=== PATIENT | female | born 1950 | race Caucasian/White ===

== ENCOUNTER 2018-11-24 17:21 | Inpatient (IN) | payer MEDICARE, MEDICAID ==
[~2018-11-24] VITALS: Ht 165.1 cm; Wt 51.3 kg
[2018-11-24] MEDS ORDERED: NS IV 1000 ML 1,000 ML IV SCH ×2 (17:33→21:30)
--- NOTE | 2018-11-24 17:41 | ED General ---
General Stated Complaint: SENT OVER FROM [facility] Source of Information: Patient, Family Exam Limitations: No Limitations (BALJEET FRENCH MD) History of Present Illness Date Seen by Provider: Nov 24, 2018 Time Seen by Provider: 17:24 Initial Comments Brought here from the clinic by family after clinic found her to have blood pressure in the 70s and heart rate greater than 100. Patient reports that she's been sick recently and had a fever of 101. Family did give Tylenol couple hours ago. She arrives with temperature of 99. Arrives with blood pressure 107/59. Patient reports that she had sick contact with grandchild who had upper respiratory illness. She didn't think that she can get that but appears that she may have. Does have cough for the last 1-2 days as well as runny nose and sore throat. She is 4 years cancer free from throat cancer. Does not usually have blood pressure this low. She is on levothyroxine for thyroid replacement and takes Naprosyn as needed for pain. Timing/Duration: 1-2 Days, Getting Worse Severity: Moderate Associated Systoms: Cough, Fever/Chills; No Nausea/Vomiting; Shortness of Air, Weakness (BALJEET FRENCH MD) Allergies and Home Medications Allergies Coded Allergies: Penicillins (Verified Allergy, Unknown, 11/24/18) codeine (Verified Allergy, Unknown, 11/24/18) lidocaine (Verified Allergy, Unknown, 11/24/18) oxytetracycline (Verified Allergy, Unknown, 11/24/18) Patient Home Medication List Home Medication List Reviewed: Yes (BALJEET FRENCH MD) Review of Systems Review of Systems Constitutional: see HPI, chills, fever, weakness EENTM: nose congestion, throat pain Respiratory: cough, short of breath Cardiovascular: No chest pain, No edema Gastrointestinal: No abdominal pain; loss of appetite; No nausea, No vomiting Genitourinary: no symptoms reported Musculoskeletal: no symptoms reported Skin: no symptoms reported Psychiatric/Neurological: See HPI Hematologic/Lymphatic: No Symptoms Reported (BALJEET FRENCH MD) All Other Systems Reviewed Negative Unless Noted: Yes (BALJEET FRENCH MD) Past Jmdvkpq-Hitelf-Akmysh Hx Patient Social History Alcohol Use: Denies Use Recreational Drug Use: No Smoking Status: Never a Smoker Recent Foreign Travel: No Contact w/Someone Who Travel: No (BALJEET FRENCH MD) Past Medical History Surgeries: Yes Abdominal (feeding tube), Tubal Ligation Respiratory: No Cardiac: No Neurological: No 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 Genitourinary: No Gastrointestinal: No Musculoskeletal: No Endocrine: Yes Hypothyroidsim Cancer: Yes Oral (tonsil) Did You Recieve Any Treatments: Yes What Type of Treatment Did You: Chemotherapy, Radiation, Surgical Intervention (BALJEET FRENCH MD) Family Medical History No Pertinent Family Hx (BALJEET FRENCH MD) Physical Exam-Suspected Sepsis Physical Exam Vital Signs Vital Signs - First Documented 11/24/18 17:25 Temp 99.0 Pulse 88 Resp 16 B/P (MAP) 107/59 (75) Pulse Ox 91 O2 Delivery Room Air (ROSAURA MIJARES MD) Vital Signs Capillary Refill : (BALJEET FRENCH MD) Height, Weight, BMI Height: '" Weight: lbs. oz. kg; BMI Method: General Appearance: No Apparent Distress, Thin HEENT: PERRL/EOMI, Pharyngeal Erythema, Other (bilateral nasal congestion with clear rhinorrhea) Neck: Non Tender, Supple; No Lymphadenopathy (L), No Lymphadenopathy (R) Respiratory: Crackles (left base greater than right), Expiration, Inspiration Cardiovascular: Regular Rate, Rhythm, No Murmur Gastrointestinal: Non Tender, Soft Back: Normal Inspection, No CVA Tenderness, No Vertebral Tenderness Extremity: Normal Range of Motion, Non Tender Neurologic/Psychiatric: Alert, Oriented x3 Skin: normal color, warm/dry (BALJEET FRENCH MD) Focused Exam Lactate Level 11/24/18 17:35: Lactic Acid Level 1.06 (ROSAURA MIJARES MD) Lactic Acid Level Laboratory Tests Test 11/24/18 17:35 Lactic Acid Level 1.06 MMOL/L (0.50-2.00) (ROSAURA MIJARES MD) Progress/Results/Core Measures Suspected Sepsis SIRS Temperature: Pulse: Respiratory Rate: Laboratory Tests 11/24/18 17:35: White Blood Count 9.1 Blood Pressure / Mean: 11/24/18 17:35: Laboratory Tests 11/24/18 17:35: INR Comment 1.3, Platelet Count 128L (BALJEET FRENCH MD) Results/Orders Lab Results Laboratory Tests Test 11/24/18 17:30 11/24/18 17:35 11/24/18 18:05 Range/Units White Blood Count 9.1 4.3-11.0 10^3/uL Red Blood Count 4.51 4.35-5.85 10^6/uL Hemoglobin 12.8 11.5-16.0 G/DL Hematocrit 39 35-52 % Mean Corpuscular Volume 87 80-99 FL Mean Corpuscular Hemoglobin 28 25-34 PG Mean Corpuscular Hemoglobin Concent 33 32-36 G/DL Red Cell Distribution Width 14.6 H 10.0-14.5 % Platelet Count 128 L 130-400 10^3/uL Mean Platelet Volume 13.5 H 7.4-10.4 FL Neutrophils (%) (Auto) 84 H 42-75 % Lymphocytes (%) (Auto) 8 L 12-44 % Monocytes (%) (Auto) 7 0-12 % Eosinophils (%) (Auto) 0 0-10 % Basophils (%) (Auto) 0 0-10 % Neutrophils # (Auto) 7.7 1.8-7.8 X 10^3 Lymphocytes # (Auto) 0.7 L 1.0-4.0 X 10^3 Monocytes # (Auto) 0.7 0.0-1.0 X 10^3 Eosinophils # (Auto) 0.0 0.0-0.3 10^3/uL Basophils # (Auto) 0.0 0.0-0.1 10^3/uL Neutrophils % (Manual) 52 % Lymphocytes % (Manual) 4 % Monocytes % (Manual) 5 % Eosinophils % (Manual) 0 % Basophils % (Manual) 0 % Band Neutrophils 39 % Blood Morphology Comment NORMAL Prothrombin Time 15.8 H 12.2-14.7 SEC INR Comment 1.3 0.8-1.4 Activated Partial Thromboplast Time 35 24-35 SEC Sodium Level 138 135-145 MMOL/L Potassium Level 4.0 3.6-5.0 MMOL/L Chloride Level 101 98-107 MMOL/L Carbon Dioxide Level 25 21-32 MMOL/L Anion Gap 12 5-14 MMOL/L Blood Urea Nitrogen 20 H 7-18 MG/DL Creatinine 0.69 0.60-1.30 MG/DL Estimat Glomerular Filtration Rate > 60 BUN/Creatinine Ratio 29 Glucose Level 120 H 70-105 MG/DL Lactic Acid Level 1.06 0.50-2.00 MMOL/L Calcium Level 9.6 8.5-10.1 MG/DL Corrected Calcium 9.6 8.5-10.1 MG/DL Total Bilirubin 0.4 0.1-1.0 MG/DL Aspartate Amino Transf (AST/SGOT) 18 5-34 U/L Alanine Aminotransferase (ALT/SGPT) 13 0-55 U/L Alkaline Phosphatase 75 40-136 U/L Total Protein 7.5 6.4-8.2 GM/DL Albumin 4.0 3.2-4.5 GM/DL Urine Color YELLOW Urine Clarity CLEAR Urine pH 6.5 5-9 Urine Specific [place] <1.005 1.016-1.022 Urine Protein NEGATIVE NEGATIVE Urine Glucose (UA) NEGATIVE NEGATIVE Urine Ketones NEGATIVE NEGATIVE Urine Nitrite NEGATIVE NEGATIVE Urine Bilirubin NEGATIVE NEGATIVE Urine Urobilinogen 0.2 NORMAL MG/DL Urine Leukocyte Esterase NEGATIVE NEGATIVE Urine RBC (Auto) 1+ H NEGATIVE Urine RBC 5-10 H /HPF Urine WBC NONE /HPF Urine Squamous Epithelial Cells 2-5 /HPF Urine Crystals NONE /LPF Urine Bacteria NONE /HPF Urine Casts NONE /LPF Urine Mucus NEGATIVE /LPF Urine Culture Indicated NO (ROSAURA MIJARES MD) Micro Results Microbiology 11/24/18 Influenza Types A,B Antigen (CADEN) - Final, Complete (ROSAURA MIJARES MD) My Orders Orders - ROSAURA MIJARES MD Levofloxacin 750 Mg/150 Ml Iv (Levaquin (11/24/18 18:45) Free T4 (Free Thyroxine) (11/24/18 18:39) Thyroid Stimulating Hormone (11/24/18 18:39) (ROSAURA MIJARES MD) Medications Given in ED Current Medications Medications Dose Ordered Sig/Paul Route Start Time Stop Time Status Last Admin Dose Admin Levofloxacin/ Dextrose 150 ml @ 100 mls/hr ONCE ONCE IV 11/24/18 18:45 11/24/18 20:14 11/24/18 18:44 100 MLS/HR Sodium Chloride 1,000 ml @ 0 mls/hr Q0M ONCE IV 11/24/18 17:58 11/24/18 17:59 DC 11/24/18 18:07 1,000 MLS/HR (ROSAURA MIJARES MD) Vital Signs/I&O 11/24/18 11/24/18 11/24/18 17:25 18:12 18:23 Temp 99.0 97.9 Pulse 88 76 84 98 Resp 16 B/P (MAP) 107/59 (75) 100/68 (79) 82/51 (61) 72/44 (53) Pulse Ox 91 O2 Delivery Room Air (ROSAURA MIJARES MD) Vital Signs/I&O Capillary Refill : (BALJEET FRENCH MD) Progress Note : Progress Note Seen and evaluated. IV 2, labs, blood cultures, lactic acid, EKG and normal saline 1 L bolus ordered. We will check for influenza. Chest x-ray ordered. Monitor patient. 1800:1 and satting vital sign noted the pressure 70s over 40s when standing but return to the 90s over 70s when laying flat. We will add another liter of normal saline. 1805: Care transferred to Dr. Hartman pending labs. (BALJEET FRENCH MD) Progress Note #1: Time: 18:58 Progress Note Care of this patient was assumed from Dr. French at shift change at 18:00. Patient is receiving 2 L of IV fluid. Systolic blood pressure has improved to 130s. Levaquin was ordered based on allergy profile. She has a childhood allergy to penicillin with a reaction she describes as rash, swelling, and "turning purple". Patient agrees to transfer to [place] for admission. Progress Note #2: Time: 19:55 Progress Note Patient remained stable through the remainder of her ER visit. Her Levaquin was nearly complete at the time of transfer. Although she was only tachycardic and hypotensive with orthostatic vital signs, she was felt to likely be septic with evidence of bilateral pneumonia on chest x-ray and fever. Her condition was felt to be guarded and admission was felt necessary. It was also noted that her oxygen saturation was initially marginal around 91 percent. (ROSAURA MIJARES MD) ECG Initial ECG Impression Date: Nov 24, 2018 Initial ECG Impression Time: 17:40 Initial ECG Rate: 85 Initial ECG Rhythm: Normal Sinus Comment Sinus rhythm with occasional PVC and PAC. Left bundle branch block. Normal axis. No signs of ST elevation [place]. No previous available for comparison. Interpreted by me. (BALJEET FRENCH MD) Diagnostic Imaging Diagonstic Imaging: Xray Plain Films/CT/US/NM/MRI: chest Comments CXR viewed by me and report reviewed. See report below: NAME: ZAIRE KIRK [facility] REC#: [id number] PT STATUS: REG ER : 1950 PHYSICIAN: BALJEET FRENCH MD ADMIT DATE: 11/24/18/ER FS Draft Date of Exam:11/24/18 CHEST 1 VIEW AP/PA ONLY INDICATION: Weakness, hypotension. FINDINGS: Upright AP chest shows normal heart size and vascularity. There is patchy infiltrate at the left lung base. There may be minimal infiltrate at the right lung base as well. There upper lungs are clear. There is no effusion or pneumothorax. IMPRESSION: There are patchy bibasilar infiltrates suspicious for pneumonia. Recommend follow-up. Dictated on workstation # [id number] Dict: 11/24/18 1811 Trans: 11/24/18 1814 [id number] Interpreted by: MILTON FOX MD (ROSAURA MIJARES MD) Departure Communication (Admissions) Time/Spoke to Admitting Phy: 18:35 Dr. Washburn (ROSAURA MIJARES MD) Impression Primary Impression: Sepsis Qualified Codes: A41.9 - Sepsis, unspecified organism Additional Impressions: Bilateral pneumonia Qualified Codes: J18.1 - Lobar pneumonia, unspecified organism Orthostatic hypotension Disposition: HOME, SELF-CARE Condition: Improved Admissions Decision to Admit Reason: Admit from ER (General) Decision to Admit/Date: Nov 24, 2018 Time/Decision to Admit Time: 18:00 (ROSAURA MIJARES MD) Transfer Time Spoke to Accepting Phy: 18:35 Transfer Progress Notes Patient accepted by Dr. Washburn at [facility] in [place]. Transfer Time: 19:55 Method of Transfer: EMS (ROSAURA MIJARES MD) Departure-Patient Inst. Referrals: REJI SHAH MD (PCP) Primary Care Physician BALJEET FRENCH MD Nov 24, 2018 17:41 ROSAURA MIJARES MD Nov 24, 2018 18:24
[2018-11-24 17:45] LABS: HEMOGLOBIN 12.8 G/DL (11.5-16.0); MEAN CORPUSCULAR HEMOGLOBIN 28 PG (25-34); WHITE BLOOD COUNT 9.1 10^3/uL (4.3-11.0)
[2018-11-24 17:46] LABS: BASOPHILS % (AUTO) 0 % (0-10); EOSINOPHILS % (AUTO) 0 % (0-10); HEMATOCRIT 39 % (35-52); LYMPHOCYTES # (AUTO) 0.7 X 10^3 (1.0-4.0); LYMPHOCYTES % (AUTO) 8 % (12-44); MEAN CORPUSCULAR HGB CONC 33 G/DL (32-36); MEAN CORPUSCULAR VOLUME 87 FL (80-99); MEAN PLATELET VOLUME 13.5 FL (7.4-10.4); MONOCYTES # (AUTO) 0.7 X 10^3 (0.0-1.0); MONOCYTES % (AUTO) 7 % (0-12); NEUTROPHILS # (AUTO) 7.7 X 10^3 (1.8-7.8); NEUTROPHILS % (AUTO) 84 % (42-75); PLATELET COUNT 128 10^3/uL (130-400); RED CELL DISTRIBUTION WIDTH 14.6 % (10.0-14.5)
[2018-11-24] MEDS ORDERED: NS IV 1000 ML 1,000 ML IV ONE (17:58)
[2018-11-24 18:00] LABS: BAND NEUTROPHILS 39 %; BASOPHILS % (MANUAL) 0 %; EOSINOPHILS % (MANUAL) 0 %; LYMPHOCYTES % (MANUAL) 4 %; MONOCYTES % (MANUAL) 5 %; NEUTROPHILS % (MANUAL) 52 %; RBC MORPH NORMAL
[2018-11-24 18:01] LABS: INR 1.3 (0.8-1.4); PROTHROMBIN TIME PATIENT 15.8 SEC (12.2-14.7)
[2018-11-24 18:12] VITALS: BP_SYST 100; BP_SYST 72; BP_SYST 82; BP_DIAS 44; BP_DIAS 51; BP_DIAS 68
[2018-11-24 18:14] LABS: BILIRUBIN,URINE NEGATIVE (NEGATIVE); CLARITY,URINE CLEAR; COLOR,URINE YELLOW; GLUCOSE, URINE (UA) NEGATIVE (NEGATIVE); KETONES,URINE NEGATIVE (NEGATIVE); LEUKOCYTE ESTERASE ,URINE NEGATIVE (NEGATIVE); NITRITE,URINE NEGATIVE (NEGATIVE); PH,URINE 6.5 (5-9); PROTEIN,URINE NEGATIVE (NEGATIVE); UROBILINOGEN,URINE 0.2 MG/DL (NORMAL)
[2018-11-24 18:15] LABS: BILIRUBIN,TOTAL 0.4 MG/DL (0.1-1.0); BUN/CREATININE RATIO 29; CALCIUM 9.6 MG/DL (8.5-10.1); CARBON DIOXIDE 25 MMOL/L (21-32); CHLORIDE 101 MMOL/L (98-107); CREATININE SERUM 0.69 MG/DL (0.60-1.30); GFR ESTIMATED > 60; GLUCOSE 120 MG/DL (70-105); SODIUM 138 MMOL/L (135-145)
--- NOTE | 2018-11-24 18:15 | Diagnostic Imaging Report ---
INDICATION: Weakness, hypotension. FINDINGS: Upright AP chest shows normal heart size and vascularity. There is patchy infiltrate at the left lung base. There may be minimal infiltrate at the right lung base as well. There upper lungs are clear. There is no effusion or pneumothorax. IMPRESSION: There are patchy bibasilar infiltrates suspicious for pneumonia. Recommend follow-up. Dictated by: Dictated on workstation # [id number]
[2018-11-24 18:16] LABS: ALANINE AMINOTRANSFERASE 13 U/L (0-55); ALKALINE PHOSPHATASE 75 U/L (40-136); TOTAL PROTEIN 7.5 GM/DL (6.4-8.2)
--- NOTE | 2018-11-24 18:23 | NUR ---
RESTING IN BED ET DENIES NEEDS AT THIS TIME.
--- NOTE | 2018-11-24 18:35 | NUR ---
MANAGER TRANSFUSION CONTACTED FOR A BED.
[2018-11-24] MEDS ORDERED: LEVOFLOXACIN 750 MG/150 ML IV 150 ML IV ONE (18:45)
--- NOTE | 2018-11-24 19:27 | NUR ---
REPORT GIVEN TO RONNY GOMEZ.
--- NOTE | 2018-11-24 20:42 | NUR ---
ZAIRE KIRK S admitted to room 429-1, with an admitting diagnosis of PNA, SEPSIS , on 11/24/18 from [facility] via [facility], accompanied by STAFF AND FAMILY. ZAIRE KIRK introduced to surroundings, call light, bed controls, phone, TV, temperature control, lights, meal times, smoking policy, visitor policy, side rail policy, bathrooms and showers. Patient Rights given to patient in the handbook.ZAIRE KIRK verbalizes understanding that [facility] is not responsible for the loss or damage to any personal effects or valuables that are kept in the patients posession during their hospitalization.
[2018-11-24] MEDS ORDERED: NS IV 1000 ML 1,000 ML ONE (20:56)
[2018-11-24 20:59] VITALS: BP 126/70
[2018-11-24] MEDS: NS IV 1000 ML 1,000 ML IV SCH (21:03)
[2018-11-24] MEDS ORDERED: CATHETER FLUSH 10 ML SYR IV PRN (21:30)
[2018-11-24] MEDS ORDERED: ACETAMINOPHEN 325 MG TABLET PO PRN (21:30)
[2018-11-24] MEDS ORDERED: ONDANSETRON 4 MG/2 ML (SDV) Z0FRAN IV PRN (21:30)
[2018-11-24 21:59] VITALS: BP 125/66
[2018-11-24] MEDS: CATHETER FLUSH 10 ML SYR IV SCH (22:13)
[2018-11-24 23:10] VITALS: BP 131/70
[2018-11-24 23:37] VITALS: BP 108/68
[2018-11-24 23:37] LABS: FREE T4 (FREE THYROXINE) 1.01 NG/DL (0.70-1.48)
[2018-11-25 00:16] VITALS: BP 135/69
[2018-11-25] MEDS: NS IV 1000 ML 1,000 ML IV SCH ×3 (03:46→16:44)
[2018-11-25 03:59] VITALS: BP 115/62
[2018-11-25] MEDS: CATHETER FLUSH 10 ML SYR IV SCH ×3 (05:46→19:34)
[2018-11-25 06:12] LABS: BASOPHILS % (AUTO) 0 % (0-10); EOSINOPHILS % (AUTO) 0 % (0-10); HEMATOCRIT 35 % (35-52); HEMOGLOBIN 11.3 G/DL (11.5-16.0); LYMPHOCYTES # (AUTO) 0.5 X 10^3 (1.0-4.0); LYMPHOCYTES % (AUTO) 11 % (12-44); MEAN CORPUSCULAR HEMOGLOBIN 29 PG (25-34); MEAN CORPUSCULAR HGB CONC 33 G/DL (32-36); MEAN CORPUSCULAR VOLUME 88 FL (80-99); MEAN PLATELET VOLUME 13.3 FL (7.4-10.4); MONOCYTES # (AUTO) 0.4 X 10^3 (0.0-1.0); MONOCYTES % (AUTO) 9 % (0-12); NEUTROPHILS # (AUTO) 3.9 X 10^3 (1.8-7.8); NEUTROPHILS % (AUTO) 80 % (42-75); PLATELET COUNT 103 10^3/uL (130-400); RED CELL DISTRIBUTION WIDTH 14.9 % (10.0-14.5); WHITE BLOOD COUNT 4.8 10^3/uL (4.3-11.0)
[2018-11-25 06:36] LABS: ALANINE AMINOTRANSFERASE 12 U/L (0-55); ALBUMIN 3.3 GM/DL (3.2-4.5); ALKALINE PHOSPHATASE 58 U/L (40-136); BILIRUBIN,TOTAL 0.3 MG/DL (0.1-1.0); BUN/CREATININE RATIO 12; CALCIUM 8.4 MG/DL (8.5-10.1); CARBON DIOXIDE 21 MMOL/L (21-32); CHLORIDE 110 MMOL/L (98-107); CREATININE SERUM 0.58 MG/DL (0.60-1.30); GFR ESTIMATED > 60; GLUCOSE 93 MG/DL (70-105); POTASSIUM 3.5 MMOL/L (3.6-5.0); SODIUM 142 MMOL/L (135-145); TOTAL PROTEIN 6.2 GM/DL (6.4-8.2)
[2018-11-25 08:00] VITALS: BP 113/57
[2018-11-25] MEDS ORDERED: LEVO125T6 PO (09:30)
[2018-11-25] MEDS ORDERED: NAPR-915 PO ×2 (09:30)
--- NOTE | 2018-11-25 09:30 | NUR ---
SPOKE WITH THE PATIENT ABOUT HER MEDICATIONS. SHE LISTED WHAT SHE IS TAKING AND I VERIFIED WITH [facility] IN [place]. PAT FS FILLED: 10-13-18 LEVOTHYROXINE 125MCG DAILY #90 09-22-18 NAPROXEN 500MG BID WITH MEALS #180 (TAKES 1 AM SCHEDULED AND 1 HS PRN) SHE STATES SHE DOES NOT TAKE ANYTHING OTC.
[2018-11-25] MEDS: RT-ALBUTEROL/IPRATROPIUM 3 ML (DUONEB) VIAL INH SCH ×3 (09:58→21:31)
[2018-11-25 12:00] VITALS: BP 133/66
--- NOTE | 2018-11-25 12:18 | History & Physicial (CHS) ---
HPI History of Present Illness: 68 yo previously healthy female presented to ER from clinic due to low BP and high heart rate. She started feeling poorly in general a few days ago and got worse over time. Has had nasal congestion and occasional cough. Diarrhea once. Date seen by provider: Nov 25, 2018 Time Seen by Provider: 08:40 Attending Physician Amirah Washburn MD PCP Summer Reynolds MD Consult Date of Admission Nov 24, 2018 at 18:53 Home Medications Home Medications Reviewed patient Home Medication Reconciliation performed by pharmacy medication reconciliations satellite tv technician and/or nursing. Patients Allergies have been reviewed. Allergies Coded Allergies: Penicillins (Verified Allergy, Unknown, 11/24/18) codeine (Verified Allergy, Unknown, 11/24/18) lidocaine (Verified Allergy, Unknown, 11/24/18) oxytetracycline (Verified Allergy, Unknown, 11/24/18) EGZ-Tyqvnz-Gtuczx Hx Patient Social History Alcohol Use: Denies Use Recreational Drug Use: No Smoking Status: Never a Smoker Recent Foreign Travel: No Contact w/other who traveled: No Recent Hopitalizations: No Recent Infectious Disease Expo: No Physical Abuse Screen: No Sexual Abuse: No Past Medical History PMHx: Hypothyroidism Throat cancer Family Medical History Significant Family History: No Pertinent Family Hx Family History: Patient reports no known family medical history. Review of Systems (CHC) Constitutional: fever, malaise EENTM: nose congestion; No throat pain Respiratory: cough Cardiovascular: No chest pain Gastrointestinal: No abdominal pain, No constipation, No nausea, No vomiting Genitourinary: No dysuria Musculoskeletal: joint pain (knees) Skin: No rash Psychiatric/Neurological: No Symptoms Reported Reviewed Test Results Reviewed Test Results Lab Laboratory Tests Test 11/24/18 17:30 11/24/18 17:35 11/24/18 18:05 11/25/18 05:44 Range/Units Thyroid Stimulating Hormone (TSH) 2.42 0.35-4.94 UIU/ML Free Thyroxine 1.01 0.70-1.48 NG/DL White Blood Count 9.1 4.8 4.3-11.0 10^3/uL Red Blood Count 4.51 3.93 L 4.35-5.85 10^6/uL Hemoglobin 12.8 11.3 L 11.5-16.0 G/DL Hematocrit 39 35 35-52 % Mean Corpuscular Volume 87 88 80-99 FL Mean Corpuscular Hemoglobin 28 29 25-34 PG Mean Corpuscular Hemoglobin Concent 33 33 32-36 G/DL Red Cell Distribution Width 14.6 H 14.9 H 10.0-14.5 % Platelet Count 128 L 103 L 130-400 10^3/uL Mean Platelet Volume 13.5 H 13.3 H 7.4-10.4 FL Neutrophils (%) (Auto) 84 H 80 H 42-75 % Lymphocytes (%) (Auto) 8 L 11 L 12-44 % Monocytes (%) (Auto) 7 9 0-12 % Eosinophils (%) (Auto) 0 0 0-10 % Basophils (%) (Auto) 0 0 0-10 % Neutrophils # (Auto) 7.7 3.9 1.8-7.8 X 10^3 Lymphocytes # (Auto) 0.7 L 0.5 L 1.0-4.0 X 10^3 Monocytes # (Auto) 0.7 0.4 0.0-1.0 X 10^3 Eosinophils # (Auto) 0.0 0.0 0.0-0.3 10^3/uL Basophils # (Auto) 0.0 0.0 0.0-0.1 10^3/uL Neutrophils % (Manual) 52 % Lymphocytes % (Manual) 4 % Monocytes % (Manual) 5 % Eosinophils % (Manual) 0 % Basophils % (Manual) 0 % Band Neutrophils 39 % Blood Morphology Comment NORMAL Prothrombin Time 15.8 H 12.2-14.7 SEC INR Comment 1.3 0.8-1.4 Activated Partial Thromboplast Time 35 24-35 SEC Sodium Level 138 142 135-145 MMOL/L Potassium Level 4.0 3.5 L 3.6-5.0 MMOL/L Chloride Level 101 110 H 98-107 MMOL/L Carbon Dioxide Level 25 21 21-32 MMOL/L Anion Gap 12 11 5-14 MMOL/L Blood Urea Nitrogen 20 H 7 7-18 MG/DL Creatinine 0.69 0.58 L 0.60-1.30 MG/DL Estimat Glomerular Filtration Rate > 60 > 60 BUN/Creatinine Ratio 29 12 Glucose Level 120 H 93 70-105 MG/DL Lactic Acid Level 1.06 0.50-2.00 MMOL/L Calcium Level 9.6 8.4 L 8.5-10.1 MG/DL Corrected Calcium 9.6 9.0 8.5-10.1 MG/DL Total Bilirubin 0.4 0.3 0.1-1.0 MG/DL Aspartate Amino Transf (AST/SGOT) 18 17 5-34 U/L Alanine Aminotransferase (ALT/SGPT) 13 12 0-55 U/L Alkaline Phosphatase 75 58 40-136 U/L Total Protein 7.5 6.2 L 6.4-8.2 GM/DL Albumin 4.0 3.3 3.2-4.5 GM/DL Urine Color YELLOW Urine Clarity CLEAR Urine pH 6.5 5-9 Urine Specific [place] <1.005 1.016-1.022 Urine Protein NEGATIVE NEGATIVE Urine Glucose (UA) NEGATIVE NEGATIVE Urine Ketones NEGATIVE NEGATIVE Urine Nitrite NEGATIVE NEGATIVE Urine Bilirubin NEGATIVE NEGATIVE Urine Urobilinogen 0.2 NORMAL MG/DL Urine Leukocyte Esterase NEGATIVE NEGATIVE Urine RBC (Auto) 1+ H NEGATIVE Urine RBC 5-10 H /HPF Urine WBC NONE /HPF Urine Squamous Epithelial Cells 2-5 /HPF Urine Crystals NONE /LPF Urine Bacteria NONE /HPF Urine Casts NONE /LPF Urine Mucus NEGATIVE /LPF Urine Culture Indicated NO Radiology CXR 11/24: IMPRESSION: There are patchy bibasilar infiltrates suspicious for pneumonia. Recommend follow-up. Physical Exam-(CHC) Physical Exam Vital Signs VS - Last 72 Hours, by Label 11/24/18 11/24/18 11/24/18 11/24/18 17:25 18:12 18:23 19:55 Temp 99.0 97.9 98.6 Pulse 88 76 81 84 98 Resp 16 18 B/P (MAP) 107/59 (75) 100/68 (79) 108/48 (68) 82/51 (61) 72/44 (53) Pulse Ox 91 93 O2 Delivery Room Air O2 Flow Rate 0 11/24/18 11/24/18 11/24/18 11/24/18 20:45 20:59 21:15 21:33 Temp 97.5 Pulse 81 78 Resp 18 B/P (MAP) 126/70 (88) Pulse Ox 96 O2 Delivery Room Air Room Air Room Air O2 Flow Rate 0.00 11/24/18 11/24/18 11/24/18 11/25/18 21:59 23:10 23:37 00:16 Temp 97.5 98.1 98.8 Pulse 83 82 78 84 Resp 18 18 20 B/P (MAP) 125/66 (85) 131/70 (90) 135/69 (91) Pulse Ox 94 93 93 94 O2 Delivery Room Air Room Air Room Air FiO2 21 11/25/18 11/25/18 11/25/18 11/25/18 01:00 03:15 03:59 07:18 Temp 99.8 Pulse 82 71 82 Resp 20 B/P (MAP) 115/62 (79) Pulse Ox 86 95 O2 Delivery Room Air Nasal Cannula O2 Flow Rate 3.00 11/25/18 11/25/18 11/25/18 08:00 08:00 09:58 Temp 99.8 Pulse 83 Resp 18 B/P (MAP) 113/57 (75) Pulse Ox 94 95 97 O2 Delivery Nasal Cannula Nasal Cannula Nasal Cannula O2 Flow Rate 3.00 3.00 2.00 Capillary Refill : Less Than 3 Seconds General Appearance: WD/WN, no apparent distress Respiratory: normal breath sounds Cardiovascular: other (occasional irregular beat) Gastrointestinal: normal bowel sounds, non tender, soft Extremities: no pedal edema Neurologic/Psychiatric: alert, normal mood/affect Skin: normal color, warm/dry Assessment/Plan Assessment/Plan Admission Dx Pneumonia Sepsis Admission Status: Inpatient Order (span 2 midnights) Reason for Inpatient Admission: Sepsis with pneumonia, high risk for decompensation (1) Bilateral pneumonia Status: Acute Assessment & Plan: Levofloxacin due to allergies, for community acquired pneumonia. Qualifiers: Qualified Codes: J18.1 - Lobar pneumonia, unspecified organism (2) Orthostatic hypotension Status: Acute Assessment & Plan: Secondary to sepsis, BP improving with IVF. (3) Sepsis Status: Acute Assessment & Plan: Secondary to pneumonia. Stable, continue antibiotics. Qualifiers: Qualified Codes: A41.9 - Sepsis, unspecified organism (4) Hypothyroidism Status: Chronic Assessment & Plan: Resume home Synthroid (5) Thrombocytopenia Status: Acute Assessment & Plan: Unknown etiology or baseline. Possibly due to infection. Monitor. (6) Hypokalemia Status: Acute Assessment & Plan: Replace and recheck. (7) Hematuria Status: Acute Assessment & Plan: Microscopic with no evidence of infection, will need further work-up likely to be done outpatient. (8) DVT prophylaxis Status: Acute Assessment & Plan: Enoxaparin Clinical Quality Measures DVT/VTE Risk/Contraindication: Risk Factor Score Per Nursin RFS Level Per Nursing on Admit: 4+=Very High AMIRAH WASHBURN MD Nov 25, 2018 12:18
[2018-11-25] MEDS ORDERED: KCL 20 MEQ TAB (K-DUR) PO NR (12:30)
[2018-11-25] MEDS: ENOXAPARIN 30 MG/0.3 ML (LOVENOX) SYR SC SCH (13:04)
[2018-11-25 16:00] VITALS: BP 120/82
[2018-11-25] MEDS ORDERED: LEVOFLOXACIN 750 MG/D5W 150 ML PRE-MIX IV ONE (18:45)
[2018-11-25 20:00] VITALS: BP 126/71
[2018-11-26] VITALS: BP 117/61
[2018-11-26] MEDS: NS IV 1000 ML 1,000 ML IV SCH ×4 (00:39→19:21)
[2018-11-26] MEDS: RT-ALBUTEROL/IPRATROPIUM 3 ML (DUONEB) VIAL INH SCH ×4 (02:48→20:49)
[2018-11-26] MEDS: CATHETER FLUSH 10 ML SYR IV SCH ×3 (03:52→22:39)
[2018-11-26 04:00] VITALS: BP 103/57
[2018-11-26] MEDS: LEVOTHYROXINE 125 MCG (LEVOTHROID) TABLET PO SCH (06:04)
[2018-11-26 06:55] LABS: BUN/CREATININE RATIO 7; CALCIUM 8.9 MG/DL (8.5-10.1); CARBON DIOXIDE 24 MMOL/L (21-32); CHLORIDE 111 MMOL/L (98-107); CREATININE SERUM 0.58 MG/DL (0.60-1.30); GFR ESTIMATED > 60; GLUCOSE 90 MG/DL (70-105); POTASSIUM 3.7 MMOL/L (3.6-5.0); SODIUM 142 MMOL/L (135-145)
[2018-11-26 08:00] VITALS: BP 115/65
[2018-11-26] MEDS ORDERED: LEVOFLOXACIN 750 MG TAB (LEVAQUIN) PO SCH (11:00)
[2018-11-26 11:59] LABS: ABSOLUTE RETIC # 17 10e9/L (24-90); BASOPHILS % (AUTO) 1 % (0-10); EOSINOPHILS % (AUTO) 0 % (0-10); HEMATOCRIT 34 % (35-52); LYMPHOCYTES # (AUTO) 0.9 X 10^3 (1.0-4.0); LYMPHOCYTES % (AUTO) 28 % (12-44); MEAN CORPUSCULAR HGB CONC 32 G/DL (32-36); MEAN CORPUSCULAR VOLUME 89 FL (80-99); MONOCYTES # (AUTO) 0.5 X 10^3 (0.0-1.0); MONOCYTES % (AUTO) 14 % (0-12); NEUTROPHILS # (AUTO) 1.8 X 10^3 (1.8-7.8); NEUTROPHILS % (AUTO) 57 % (42-75); PLATELET COUNT 108 10^3/uL (130-400); RETICULOCYTE % 0.45 % (0.50-2.40)
[2018-11-26 12:00] VITALS: BP 117/57
[2018-11-26 12:00] LABS: HEMOGLOBIN 11.1 G/DL (11.5-16.0); MEAN CORPUSCULAR HEMOGLOBIN 29 PG (25-34); MEAN PLATELET VOLUME 13.2 FL (7.4-10.4); RED CELL DISTRIBUTION WIDTH 14.9 % (10.0-14.5); WHITE BLOOD COUNT 3.1 10^3/uL (4.3-11.0)
[2018-11-26] MEDS: ENOXAPARIN 30 MG/0.3 ML (LOVENOX) SYR SC SCH (12:51)
[2018-11-26 13:35] LABS: BAND NEUTROPHILS 11 %; BASOPHILS % (MANUAL) 0 %; EOSINOPHILS % (MANUAL) 0 %; LYMPHOCYTES % (MANUAL) 29 %; MONOCYTES % (MANUAL) 11 %; NEUTROPHILS % (MANUAL) 49 %
[2018-11-26 13:36] LABS: ANISOCYTOSIS SLIGHT
[2018-11-26 16:00] VITALS: BP 124/61
--- NOTE | 2018-11-26 18:13 | Progress Note (SOAP) ---
Subjective Subjective/Events-last exam Tmax 100.2 last 24 hours, feeling better but still short of breath with activity. She states she does have a nebulizer at home if needed. Review of Systems Date Seen by Provider: Nov 26, 2018 Time Seen by Provider: 11:15 Focused Exam Lactate Level 11/24/18 17:35: Lactic Acid Level 1.06 Objective Exam Last Set of Vital Signs Vital Signs Date Time Temp Pulse Resp B/P (MAP) Pulse Ox O2 Delivery O2 Flow Rate FiO2 11/26/18 16:00 97.9 84 20 124/61 (82) 95 Room Air 11/26/18 15:11 2.00 11/24/18 23:37 21 Capillary Refill : Less Than 3 Seconds I&O Intake and Output 11/26/18 00:00 Intake Total 7680 ml Output Total 1000 ml Balance 6680 ml Intake Oral 4530 ml IV Total 3150 ml Output Urine Total 1000 ml # Voids 9 # Bowel Movements 1 General: Alert, No Acute Distress Lungs: Clear to Auscultation Heart: Regular Rate, No Murmurs Neuro: Normal Speech Psych/Mental Status: Mental Status NL Results/Procedures Lab Laboratory Tests 11/26/18 06:15: White Blood Count 3.1L, Red Blood Count 3.84L, Hemoglobin 11.1L, Hematocrit 34L , Mean Corpuscular Volume 89, Mean Corpuscular Hemoglobin 29, Mean Corpuscular Hemoglobin Concent 32, Red Cell Distribution Width 14.9H, Platelet Count 108L, Mean Platelet Volume 13.2H, Neutrophils (%) (Auto) 57, Lymphocytes (%) (Auto) 28 , Monocytes (%) (Auto) 14H, Eosinophils (%) (Auto) 0, Basophils (%) (Auto) 1, Neutrophils # (Auto) 1.8, Lymphocytes # (Auto) 0.9L, Monocytes # (Auto) 0.5, Eosinophils # (Auto) 0.0, Basophils # (Auto) 0.0, Neutrophils % (Manual) 49, Lymphocytes % (Manual) 29, Monocytes % (Manual) 11, Eosinophils % (Manual) 0, Basophils % (Manual) 0, Band Neutrophils 11, Anisocytosis SLIGHT, Absolute Reticulocyte Count 17L, Percent Reticulocyte Count 0.45L, Sodium Level 142, Potassium Level 3.7, Chloride Level 111H, Carbon Dioxide Level 24, Anion Gap 7, Blood Urea Nitrogen 4L, Creatinine 0.58L, Estimat Glomerular Filtration Rate > 60, BUN/Creatinine Ratio 7, Glucose Level 90, Calcium Level 8.9 Microbiology 11/24/18 Blood Culture - Preliminary, Resulted No growth 11/24/18 Influenza Types A,B Antigen (CADEN) - Final, Complete 11/24/18 Urine Culture - Final, Complete NO GROWTH Radiology CXR 11/24: IMPRESSION: There are patchy bibasilar infiltrates suspicious for pneumonia. Recommend follow-up. Assessment/Plan Assessment/Plan (1) Bilateral pneumonia Status: Acute Assessment & Plan: Levofloxacin due to allergies, for community acquired pneumonia. Qualifiers: Qualified Codes: J18.1 - Lobar pneumonia, unspecified organism (2) Orthostatic hypotension Status: Acute Assessment & Plan: Secondary to sepsis, BP improved with IVF. (3) Sepsis Status: Acute Assessment & Plan: Secondary to pneumonia. Improved, continue antibiotics. Qualifiers: Qualified Codes: A41.9 - Sepsis, unspecified organism (4) Hypothyroidism Status: Chronic Assessment & Plan: Resume home Synthroid (5) Thrombocytopenia Status: Acute Assessment & Plan: Unknown etiology or baseline. Possibly due to infection. Monitor. Peripheral smear pending. (6) Hypokalemia Status: Acute Assessment & Plan: Replace and recheck. (7) Hematuria Status: Acute Assessment & Plan: Microscopic with no evidence of infection, will need further work-up likely to be done outpatient. (8) DVT prophylaxis Status: Acute Assessment & Plan: Enoxaparin Clinical Quality Measures DVT/VTE Risk/Contraindication: Risk Factor Score Per Nursin RFS Level Per Nursing on Admit: 4+=Very High AMIRAH SANCHEZ MD Nov 26, 2018 18:13
[2018-11-26 20:00] VITALS: BP 157/75
[2018-11-27 00:13] VITALS: BP 139/66
[2018-11-27] MEDS: NS IV 1000 ML 1,000 ML IV SCH ×3 (01:32→14:54)
[2018-11-27] MEDS: RT-ALBUTEROL/IPRATROPIUM 3 ML (DUONEB) VIAL INH SCH ×2 (03:10→08:01)
[2018-11-27 04:00] VITALS: BP 132/75
[2018-11-27 06:29] LABS: HEMOGLOBIN 10.3 G/DL (11.5-16.0); MEAN PLATELET VOLUME 13.3 FL (7.4-10.4); RED CELL DISTRIBUTION WIDTH 14.9 % (10.0-14.5)
[2018-11-27] MEDS: LEVOTHYROXINE 125 MCG (LEVOTHROID) TABLET PO SCH (06:36)
[2018-11-27] MEDS: CATHETER FLUSH 10 ML SYR IV SCH ×2 (06:36→12:21)
[2018-11-27 06:45] LABS: BUN/CREATININE RATIO 6; CALCIUM 8.9 MG/DL (8.5-10.1); CARBON DIOXIDE 24 MMOL/L (21-32); CHLORIDE 111 MMOL/L (98-107); GFR ESTIMATED > 60; GLUCOSE 94 MG/DL (70-105); POTASSIUM 3.2 MMOL/L (3.6-5.0); SODIUM 142 MMOL/L (135-145)
[2018-11-27 08:00] VITALS: BP 156/74
[2018-11-27] MEDS ORDERED: KCL 20 MEQ TAB (K-DUR) PO NR (08:30)
--- NOTE | 2018-11-27 08:35 | NUR ---
HOME OXYGEN PT WALKED WITH OUT DISTRESS 0N ROOM AIR AND SPO2 STAYED ABOVE 89%, PT RETURNED TO ROOM AND DOES NOT REQUIRE HOME OXYGEN AT THIS TIME.
[2018-11-27] MEDS ORDERED: POTASSIUM CL 10MEQ/50ML IVPB 200 ML IV ONE (08:50)
[2018-11-27] MEDS: POTASSIUM CL 10MEQ/50ML IVPB 50 ML IV SCH ×4 (08:54→12:00)
[2018-11-27] MEDS ORDERED: IPRA3AMP31 INH (10:47)
[2018-11-27] MEDS ORDERED: LEVO750T39 PO (10:47)
--- NOTE | 2018-11-27 10:49 | Discharge Instructions ---
Discharge [facility] hospital Discharge Medications New, Converted or Re-Newed RX: Transmitted to Pharmacy New Medications: Ipratropium/Albuterol Sulfate (Iprat-Albut 0.5-3(2.5) mg/3 ml) 3 Ml Ampul.neb 3 ML INH Q6H PRN for SHORTNESS OF BREATH, #300 ML 0 Refills Levofloxacin (Levofloxacin) 750 Mg Tablet 750 MG PO Q48H, #4 TAB 0 Refills Continued Medications: Levothyroxine Sodium (Levothyroxine Sodium) 125 Mcg Tablet 125 MCG PO DAILY, TAB Discontinued Medications: Naproxen (Naproxen) 500 Mg Tablet 500 MG PO DAILY, TAB Naproxen (Naproxen) 500 Mg Tablet 500 MG PO HS PRN for PAIN-MILD, TAB Patient Instructions Goal/Follow Up Appt: Follow up with Dr. Shah on 12/05 at 10:30. Patient Instructions: I recommend you stop taking naproxen because your platelets are low. In addition, your white blood cell count and hemoglobin are slightly low and need to be followed up with Dr. Shah. Additionally, your urine had a microscopic amount of blood in it, which also needs to be followed up with Dr. Shah. Return to The [facility] For: Fever, worsening shortness of breath Activity & Diet Discharge Diet: Regular Diet Activity as Tolerated: Yes Copy Copies To 1: REJI SHAH MD,AMIRAH Blount MD Nov 27, 2018 10:49
--- NOTE | 2018-11-27 10:55 | Discharge Summary ---
Diagnosis/Chief Complaint Date of Admission Nov 24, 2018 at 18:53 Date of Discharge November 27, 2018 Admission Diagnosis Admission Diagnosis Pneumonia Hematuria Thrombocytopenia Orthostatic hypotension Sepsis Discharge Diagnosis See below Problems/Diagnosis: (1) Bilateral pneumonia Assessment & Plan: Levofloxacin due to allergies, for community acquired pneumonia. Qualifiers: Qualified Codes: J18.1 - Lobar pneumonia, unspecified organism Status: Acute (2) Orthostatic hypotension Assessment & Plan: Secondary to sepsis, BP improved with IVF. Status: Resolved Resolution Date/Time: 11/27/18 @ 10:52 (3) Sepsis Assessment & Plan: Secondary to pneumonia. Improved, continue antibiotics. Qualifiers: Qualified Codes: A41.9 - Sepsis, unspecified organism Status: Resolved Resolution Date/Time: 11/27/18 @ 10:52 (4) Hypothyroidism Assessment & Plan: Resumed home Synthroid Status: Chronic (5) Thrombocytopenia Assessment & Plan: Unknown etiology or baseline. Possibly due to infection. Monitor. Peripheral smear pending at time of d/c. Status: Acute (6) Hypokalemia Assessment & Plan: Replaced Status: Acute (7) Hematuria Assessment & Plan: Microscopic with no evidence of infection, will need further work-up outpatient. Status: Acute (8) Pancytopenia Assessment & Plan: At time of d/c, had low WBC, Hgb and plt. Peripheral smear pending, Retic count low, needs further work-up outpatient. Status: Acute Chief Complaint/HPI Chief Complaint/HPI 68 yo previously healthy female presented to ER from clinic due to low BP and high heart rate. She started feeling poorly in general a few days ago and got worse over time. Has had nasal congestion and occasional cough. Diarrhea once. Discharge Summary-Simple/Stand Consultations Discharge Physical Examination Allergies: Coded Allergies: Penicillins (Verified Allergy, Unknown, 11/24/18) codeine (Verified Allergy, Unknown, 11/24/18) lidocaine (Verified Allergy, Unknown, 11/24/18) oxytetracycline (Verified Allergy, Unknown, 11/24/18) Vitals & I&Os Vital Sign - Last 12Hours Date Time Temp Pulse Resp B/P (MAP) Pulse Ox O2 Delivery O2 Flow Rate FiO2 11/27/18 08:02 94 Nasal Cannula 1.00 11/27/18 07:17 77 11/27/18 04:00 98.0 18 132/75 (94) 11/24/18 23:37 21 Intake and Output 11/26/18 23:59 Intake Total 4110 ml Output Total 1000 ml Balance 3110 ml General Appearance: Alert, No Acute Distress Respiratory: Clear to Auscultation, Normal Air Movement Cardiovascular: Regular Rate, No Murmurs Neuro: Normal Speech Psych/Mental Status: Mental Status NL Hospital Course Was the Problem List Reviewed?: Yes See final discharge diagnosis. Labs Laboratory Tests Test 11/26/18 06:15 11/27/18 06:10 Range/Units White Blood Count 3.1 L 2.0 L 4.3-11.0 10^3/uL Red Blood Count 3.84 L 3.64 L 4.35-5.85 10^6/uL Hemoglobin 11.1 L 10.3 L 11.5-16.0 G/DL Hematocrit 34 L 32 L 35-52 % Mean Corpuscular Volume 89 88 80-99 FL Mean Corpuscular Hemoglobin 29 28 25-34 PG Mean Corpuscular Hemoglobin Concent 32 32 32-36 G/DL Red Cell Distribution Width 14.9 H 14.9 H 10.0-14.5 % Platelet Count 108 L 108 L 130-400 10^3/uL Mean Platelet Volume 13.2 H 13.3 H 7.4-10.4 FL Neutrophils (%) (Auto) 57 42-75 % Lymphocytes (%) (Auto) 28 12-44 % Monocytes (%) (Auto) 14 H 0-12 % Eosinophils (%) (Auto) 0 0-10 % Basophils (%) (Auto) 1 0-10 % Neutrophils # (Auto) 1.8 1.8-7.8 X 10^3 Lymphocytes # (Auto) 0.9 L 1.0-4.0 X 10^3 Monocytes # (Auto) 0.5 0.0-1.0 X 10^3 Eosinophils # (Auto) 0.0 0.0-0.3 10^3/uL Basophils # (Auto) 0.0 0.0-0.1 10^3/uL Neutrophils % (Manual) 49 % Lymphocytes % (Manual) 29 % Monocytes % (Manual) 11 % Eosinophils % (Manual) 0 % Basophils % (Manual) 0 % Band Neutrophils 11 % Anisocytosis SLIGHT Absolute Reticulocyte Count 17 L 24-90 10e9/L Percent Reticulocyte Count 0.45 L 0.50-2.40 % Sodium Level 142 142 135-145 MMOL/L Potassium Level 3.7 3.2 L 3.6-5.0 MMOL/L Chloride Level 111 H 111 H 98-107 MMOL/L Carbon Dioxide Level 24 24 21-32 MMOL/L Anion Gap 7 7 5-14 MMOL/L Blood Urea Nitrogen 4 L 3 L 7-18 MG/DL Creatinine 0.58 L 0.50 L 0.60-1.30 MG/DL Estimat Glomerular Filtration Rate > 60 > 60 BUN/Creatinine Ratio 7 6 Glucose Level 90 94 70-105 MG/DL Calcium Level 8.9 8.9 8.5-10.1 MG/DL Radiology Reviewed CXR 11/24: IMPRESSION: There are patchy bibasilar infiltrates suspicious for pneumonia. Recommend follow-up. Discharge Instructions to patient/family Please see electronic discharge instructions given to patient. Discharge Medications Reviewed and agree with Discharge Medication list on patient's Discharge Instruction sheet Clinical Quality Measures DVT/VTE Risk/Contraindication: Risk Factor Score Per Nursin RFS Level Per Nursing on Admit: 4+=Very High Copy Copies To 1: REJI SHAH MD, BETHANY N MD Nov 27, 2018 10:55
[2018-11-27] MEDS: ENOXAPARIN 30 MG/0.3 ML (LOVENOX) SYR SC SCH (12:21)
--- NOTE | 2018-11-27 15:17 | NUR ---
RX AND INST AND VERBALIZED UNDERSTANDING. DC'D PER WC.
[2018-11-28] MEDS ORDERED: LEVOFLOXACIN 750 MG TAB (LEVAQUIN) PO SCH (11:00)
== END 2018-11-27 15:18 | disposition home or self-care (01) | DRG 871 ==
LOC: ER FS 17:23 → 4TH 18:53
PROVIDERS: ADMIT Family Medicine; ATTEND Family Medicine
DX: A41.9 Sepsis, unspecified organism (principal); J18.1 Lobar pneumonia, unspecified organism; D61.818 Other pancytopenia; I95.1 Orthostatic hypotension; E03.9 Hypothyroidism, unspecified; E87.6 Hypokalemia; R31.29 Other microscopic hematuria; Z88.0 Allergy status to penicillin; Z85.818 Personal history of malignant neoplasm of other sites of lip, oral cavity, and pharynx; Z92.21 Personal history of antineoplastic chemotherapy; Z92.3 Personal history of irradiation
CPT/HCPCS: 36415; 71045; 80048; 80053; 81000; 83605; 84439; 84443; 85007; 85025; 85027; 85045; 85610; 85730; 87040; 87088; 87804; 93005; 94640; 94760; 94761; 96361; 96365

== ENCOUNTER → 2019-01-21 | Outpatient (CLI) | payer MEDICARE, MEDICAID ==
[~2019-01-21] MED LIST: IPRA3AMP31 INH; LEVO125T6 PO; LEVO750T39 PO; NAPR-915 PO
--- NOTE | 2019-01-21 09:37 | Diagnostic Imaging Report ---
INDICATION: Cough, history of throat cancer. PA and lateral chest obtained at 9:06 a.m. and compared with 11/24/2018. Heart and mediastinal silhouette are normal in appearance. There are chronic appearing increased basilar markings. The infiltrate in the lung bases appear improved compared to the prior study. There are underlying chronic changes. There is no pneumothorax or pleural fluid. There is an old left-sided rib fracture. IMPRESSION: COPD changes with improvement in bibasilar infiltrates compared to 11/24/2018. No new abnormality. Dictated by: Dictated on workstation # [id number]
== END ==
LOC: RAD FS 09:17
PROVIDERS: ATTEND Family Medicine
DX: J44.9 Chronic obstructive pulmonary disease, unspecified (principal); Z85.89 Personal history of malignant neoplasm of other organs and systems
CPT/HCPCS: 71046

== ENCOUNTER → 2019-07-10 | Outpatient (CLI) | payer MEDICARE, MEDICAID ==
[2019-07-10 11:00] LABS: HEMATOCRIT 35 % (35-52); HEMOGLOBIN 11.9 G/DL (11.5-16.0); MEAN CORPUSCULAR HEMOGLOBIN 29 PG (25-34); MEAN CORPUSCULAR HGB CONC 34 G/DL (32-36); MEAN CORPUSCULAR VOLUME 87 FL (80-99); NEUTROPHILS % (AUTO) 90 % (42-75); PLATELET COUNT 159 10^3/uL (130-400); RED CELL DISTRIBUTION WIDTH 13.9 % (10.0-14.5); WHITE BLOOD COUNT 22.5 10^3/uL (4.3-11.0)
[2019-07-10 11:01] LABS: BASOPHILS % (AUTO) 0 % (0-10); EOSINOPHILS % (AUTO) 0 % (0-10); LYMPHOCYTES # (AUTO) 0.8 X 10^3 (1.0-4.0); LYMPHOCYTES % (AUTO) 4 % (12-44); MONOCYTES # (AUTO) 1.3 X 10^3 (0.0-1.0); MONOCYTES % (AUTO) 6 % (0-12); NEUTROPHILS # (AUTO) 20.2 X 10^3 (1.8-7.8)
[2019-07-10 11:15] LABS: BAND NEUTROPHILS 30 %; EOSINOPHILS % (MANUAL) 0 %; LYMPHOCYTES % (MANUAL) 2 %; METAMYELOCYTES % 1 %; MONOCYTES % (MANUAL) 6 %; NEUTROPHILS % (MANUAL) 61 %
[2019-07-10 11:17] LABS: ALANINE AMINOTRANSFERASE 11 U/L (0-55); ALBUMIN 3.8 GM/DL (3.2-4.5); ALKALINE PHOSPHATASE 71 U/L (40-136); BILIRUBIN,TOTAL 0.6 MG/DL (0.1-1.0); BUN/CREATININE RATIO 18; CALCIUM 9.5 MG/DL (8.5-10.1); CARBON DIOXIDE 26 MMOL/L (21-32); CHLORIDE 102 MMOL/L (98-107); CREATININE SERUM 0.67 MG/DL (0.60-1.30); GFR ESTIMATED > 60; GLUCOSE 115 MG/DL (70-105); POTASSIUM 3.7 MMOL/L (3.6-5.0); SODIUM 142 MMOL/L (135-145)
--- NOTE | 2019-07-10 11:32 | Diagnostic Imaging Report ---
INDICATION: Right ankle swelling, pain COMPARISON: Unavailable TECHNIQUE: 3 radiographs of the right ankle dated 07/10/2019 FINDINGS: Acute distal fibular shaft fracture is present originating at the level of the tibial plafond and extending superolaterally. Fracture is minimally laterally displaced. There is associated overlying soft tissue swelling. Tiny plantar calcaneal enthesophyte. The talar dome is unremarkable. The ankle mortise is symmetric. No suspicious radiopaque foreign body. IMPRESSION: Acute mildly laterally displaced distal fibular shaft fracture as described above with associated overlying soft tissue swelling. Report given to Oscar at 11:26 a.m. 07/10/2019/cassandra Dictated by: Dictated on workstation # [id number]
== END ==
LOC: RAD FS 10:30
PROVIDERS: ATTEND Nurse Practitioner Family
DX: S82.61XA Displaced fracture of lateral malleolus of right fibula, initial encounter for closed fracture (principal); M25.471 Effusion, right ankle; R55 Syncope and collapse; W19.XXXA Unspecified fall, initial encounter
CPT/HCPCS: 36415; 73610; 80053; 85007; 85027

== ENCOUNTER 2019-07-24 17:13 | Emergency (ER) | payer MEDICARE, MEDICAID ==
[~2019-07-24] VITALS: Ht 165.1 cm; Wt 45.0 kg
[2019-07-24] MEDS ORDERED: ONDANSETRON 4 MG (ZOFRAN) ORAL DISSOLVE TAB PO STA (17:37)
--- NOTE | 2019-07-24 17:43 | ED Abdominal Pain ---
General Chief Complaint: Abdominal/GI Problems Stated Complaint: VOMITING; DIARRHEA Nursing Triage Note: Pt arrival per POV with son carrying pt into ER as prior broken leg dx. Pt had diarrhea at noon and just ORCHARD HAND with an emesis. Pt reports was shaky this a.m. and called for Dr Shah's office and was offered available Quick Care appt. Pt reports ate and drank Thanksgiving meal yesterday without any problems. Sepsis Screen: No Definite Risk Source of Information: Patient, Family Exam Limitations: No Limitations History of Present Illness Date Seen by Provider: Jul 24, 2019 Time Seen by Provider: 17:30 Initial Comments Patient presents with complaint of nausea and vomiting 2 just prior to arrival. One loose stool today as well. 8 normal thanksgiving dinner yesterday without incident and was feeling well when she went to bed. This morning woke up and felt shaky and somewhat weak, but a normal breakfast and a normal lunch without incident. Denies chest pain or shortness of air. Denies fever or chills. Only complaint right now is that she is a bit nauseated, denies abdominal pain. Allergies and Home Medications Allergies Coded Allergies: Penicillins (Verified Allergy, Unknown, 11/24/18) codeine (Verified Allergy, Unknown, 11/24/18) lidocaine (Verified Allergy, Unknown, 11/24/18) oxytetracycline (Verified Allergy, Unknown, 11/24/18) Home Medications Ipratropium/Albuterol Sulfate 3 Ml Ampul.neb, 3 ML INH Q6H PRN for SHORTNESS OF BREATH Prescribed by: AMIRAH SANCHEZ on 11/27/18 1047 Levofloxacin 750 Mg Tablet, 750 MG PO Q48H Prescribed by: AMIRAH SANCHEZ on 11/27/18 1047 Levothyroxine Sodium 125 Mcg Tablet, 125 MCG PO DAILY, (Reported) Ondansetron 4 Mg Tab.rapdis, 4 MG PO Q6H Prescribed by: MODESTO ALCANTARA on 07/24/191816 Patient Home Medication List Home Medication List Reviewed: Yes Review of Systems Review of Systems Constitutional: see HPI; No diaphoresis, No dizziness, No fever; malaise; No weakness Respiratory: Denies Cough, Denies Shortness of Air Cardiovascular: Denies Chest Pain, Denies Palpitations, Denies Syncope Gastrointestinal: See HPI; Denies Abdomen Distended, Denies Abdominal Pain, Denies Diarrhea; Nausea; Denies Poor Appetite; Vomiting Musculoskeletal: No back pain, No joint pain Skin: No change in color, No change in hair/nails, No rash Past Diofudh-Uguxmf-Ghauyt Hx Past Med/Social Hx: Reviewed Nursing Past Med/Soc Hx Patient Social History Recent Foreign Travel: No Contact w/Someone Who Travel: No Recent Infectious Disease Expo: No Recent Hopitalizations: No Seasonal Allergies Seasonal Allergies: Yes Past Medical History Surgeries: Yes (VEIN STRIPPING, FEEDING TUBE PLACEMENT) Abdominal, Tubal Ligation Respiratory: No Cardiac: No Neurological: No Reproductive Disorders: No 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 No Pertinent Family Hx Physical Exam Vital Signs Vital Signs - First Documented 07/24/19 17:18 Temp 36.2 Pulse 68 Resp 22 B/P (MAP) 138/72 (94) Pulse Ox 99 O2 Delivery Room Air Capillary Refill : Less Than 3 Seconds Height/Weight/BMI Height: 5'5.00" Weight: 113lbs. 0.0oz. 51.945426et; 16.00 BMI Method:Stated General Appearance: WD/WN, no apparent distress; No mild distress HEENT: PERRL/EOMI, pharynx normal Respiratory: chest non-tender, lungs clear Cardiovascular: regular rate, rhythm, no edema, no JVD Gastrointestinal: normal bowel sounds, non tender, soft, no organomegaly, no pulsatile mass; No distended, No guarding, No rebound, No tenderness Extremities: non-tender, no pedal edema Skin: normal color, warm/dry Progress/Results/Core Measures Results/Orders My Orders Orders - ROVENSTMODESTO SU[facility] DO Ondansetron Oral Dissolve Tab (Zofran (07/24/19 17:37) Antacid Suspension (Mylanta Suspension (07/24/19 17:45) Accucheck Stat ONCE (07/24/19 18:35) Medications Given in ED Current Medications Medications Dose Ordered Sig/Apul Route Start Time Stop Time Status Last Admin Dose Admin Al Hydrox/Mg Hydrox/Simethicone 30 ml ONCE ONCE PO 07/24/19 17:45 07/24/19 17:46 DC 07/24/19 17:45 30 ML Vital Signs/I&O 07/24/19 07/24/19 17:18 18:31 Temp 36.2 36.0 Pulse 68 69 Resp 22 18 B/P (MAP) 138/72 (94) 144/79 (94) Pulse Ox 99 95 O2 Delivery Room Air Room Air Blood Pressure Mean: 94 POS Progress Progress Note : Progress Note feeling much better after zofran and maalox. Departure Impression Primary Impression: Nausea and vomiting Qualified Codes: R11.2 - Nausea with vomiting, unspecified Disposition: 01 HOME, SELF-CARE Condition: Improved Departure-Patient Inst. Referrals: REJI SHAH MD (PCP/Family) Primary Care Physician Patient Instructions: Nausea and Vomiting, Adult Scripts Ondansetron (Ondansetron Odt) 4 Mg Tab.rapdis 4 MG PO Q6H for Nausea/Vomiting, #10 TAB Prov: MODESTO ALCANTARA DO 07/24/19 MODESTO ALCANTARA DO Jul 24, 2019 17:43 POS
[2019-07-24] MEDS ORDERED: ANTACID SUSP 30 ML UDC (MYLANTA) PO ONE (17:45)
[2019-07-24] MEDS ORDERED: ONDA4TAB11 PO (18:17)
[2019-07-24 18:31] VITALS: BP 144/79
--- OUTSIDE RECORDS SUMMARY | 2019-08-19 15:49 | XMS REPORT | Continuity of Care Document ---
Author Organization Unknown Address Unknown Phone Unavailable Allergies Active Description Code Type Severity Reaction Onset Reported/Identified Relationship to Patient Clinical Status Yes codeine [id number] Drug Allergy Unknown N/A 11/24/2018 Yes lidocaine [id number] Drug Allergy Unknown N/A 11/24/2018 Yes oxytetracycline [id number] D rug Allergy Unknown N/A 11/24/2018 Yes Penicillins [id number] Drug Aller gy Unknown N/A 11/24/2018 Medications There is no data. Problems Date Dx Coded Attending Type Code Diagnosis Diagnosed By 11/25/2018 AMIRAH SANCHEZ MD Ot A41 .9 SEPSIS, UNSPECIFIED ORGANISM 11/26/2018 AMIRAH SANCHEZ MD, Ot A41 .9 SEPSIS, UNSPECIFIED ORGANISM 11/26/2018 AMIRAH SANCHEZ MD Ot D69 .6 THROMBOCYTOPENIA, UNSPECIFIED 11/26/2018 AMIRAH SANCHEZ MD Ot E03 .9 HYPOTHYROIDISM, UNSPECIFIED 11/26/2018 AMIRAH SANCHEZ MD Ot E87 .6 HYPOKALEMIA 11/26/2018 AMIRAH SANCHEZ MD Ot I95 .1 ORTHOSTATIC HYPOTENSION 11/26/2018 AMIRAH SANCHEZ MD Ot J18 .1 LOBAR PNEUMONIA, UNSPECIFIED ORGANISM 11/26/2018 AMIRAH SANCHEZ MD Ot R31.29 OTHER MICROSCOPIC HEMATURIA 11/26/2018 AMIRAH SANCHEZ MD Ot Z85.89 PERSONAL HISTORY OF MALIGNANT NEOPLASM O 11/26/2018 AMIRAH SANCHEZ MD Ot Z92.21 PERSONAL HISTORY OF ANTINEOPLASTIC CHEMO 11/26/2018 AMIRAH SANCHEZ MD Ot Z92 .3 PERSONAL HISTORY OF IRRADIATION 11/26/2018 AMIRAH SANCHEZ MD Ot A41 .9 SEPSIS, UNSPECIFIED ORGANISM 11/26/2018 AMIRAH SANCHEZ MD Ot D69 .6 THROMBOCYTOPENIA, UNSPECIFIED 11/26/2018 AMIRAH SANCHEZ MD Ot E03 .9 HYPOTHYROIDISM, UNSPECIFIED 11/26/2018 AMIRAH SANCHEZ MD Ot E87 .6 HYPOKALEMIA 11/26/2018 AMIRAH SANCHEZ MD Ot I95 .1 ORTHOSTATIC HYPOTENSION 11/26/2018 AMIRAH SANCHEZ MD Ot J18 .1 LOBAR PNEUMONIA, UNSPECIFIED ORGANISM 11/26/2018 AMIRAH SANCHEZ MD Ot R31.29 OTHER MICROSCOPIC HEMATURIA 11/26/2018 AMIRAH SANCHEZ MD Ot Z85.89 PERSONAL HISTORY OF MALIGNANT NEOPLASM O 11/26/2018 AMIRAH SANCHEZ MD Ot Z92.21 PERSONAL HISTORY OF ANTINEOPLASTIC CHEMO 11/26/2018 AMIRAH SANCHEZ MD, Ot Z92 .3 PERSONAL HISTORY OF IRRADIATION 11/27/2018 AMIRAH SANCHEZ MD Ot A41 .9 SEPSIS, UNSPECIFIED ORGANISM 11/27/2018 AMIRAH SANCHEZ MD Ot D61.818 OTHER PANCYTOPENIA 11/27/2018 AMIRAH SANCHEZ MD Ot D69 .6 THROMBOCYTOPENIA, UNSPECIFIED 11/27/2018 AMIRAH SANCHEZ MD Ot E03 .9 HYPOTHYROIDISM, UNSPECIFIED 11/27/2018 AMIRAH SANCHEZ MD Ot E87 .6 HYPOKALEMIA 11/27/2018 AMIRAH SANCHEZ MD Ot I95 .1 ORTHOSTATIC HYPOTENSION 11/27/2018 AMIRAH SANCHEZ MD, Ot J18 .1 LOBAR PNEUMONIA, UNSPECIFIED ORGANISM 11/27/2018 AMIRAH SANCHEZ MD Ot R31.29 OTHER MICROSCOPIC HEMATURIA 11/27/2018 AMIRAH SANCHEZ MD Ot Z85.818 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, 11/27/2018 AMIRAH SANCHEZ MD Ot Z85.89 PERSONAL HISTORY OF MALIGNANT NEOPLASM O 11/27/2018 AMIRAH SANCHEZ MD Ot Z88 .0 ALLERGY STATUS TO PENICILLIN 11/27/2018 AMIRAH SANCHEZ MD Ot Z92.21 PERSONAL HISTORY OF ANTINEOPLASTIC CHEMO 11/27/2018 AMIRAH SANCHEZ MD Ot Z92 .3 PERSONAL HISTORY OF IRRADIATION 01/21/2019 REJI SHAH MD, Ot J44 .9 CHRONIC OBSTRUCTIVE PULMONARY DISEASE, U 01/21/2019 ED SHAH MDA M Ot Z85.89 PERSONAL HISTORY OF MALIGNANT NEOPLASM O 07/16/2019 O'DELL, MARTIN Reny MOSS Ot M25.471 EFFUSION, RIGHT ANKLE 07/16/2019 O'DELL, MARTIN K LAND MANAGER Ot R55 SYNCOPE AND COLLAPSE 07/16/2019 O'DELL, MARTIN K LAND MANAGER Ot S82.61XA DISP FX OF LATERAL MALLEOLUS OF RIGHT FI 07/16/2019 O'DELL, MARTIN Reny LAND MANAGER Ot W19.XXXA UNSPECIFIED FALL, INITIAL ENCOUNTER 07/24/2019 ROVENSTINE DOKJEN L Ot E03.9 HYPOTHYROIDISM, UNSPECIFIED 07/24/2019 ROVENSTINE DOKJEN L Ot R11.2 NAUSEA WITH VOMITING, UNSPECIFIED 07/24/2019 ROVENSTINE DO MODESTO L Ot Z88.0 ALLERGY STATUS TO PENICILLIN 07/24/2019 ROVENSTINE DOKJEN L Ot Z88.1 ALLERGY STATUS TO OTHER ANTIBIOTIC AGENT 07/24/2019 ROVENSTINE DOMODESTO L Ot Z88.5 ALLERGY STATUS TO NARCOTIC AGENT STATUS 07/24/2019 ROVENSTINE DOMODESTO L Ot Z88.8 ALLERGY STATUS TO OT DRUG/MEDS/BIOL SUB 07/24/2019 ROVENSTINE DOMODESTO Ot Z98.51 TUBAL LIGATION STATUS 07/24/2019 PABLO CHAVEZ, REJI M Ot J44 .9 CHRONIC OBSTRUCTIVE PULMONARY DISEASE, U 07/24/2019 PABLO CHAVEZ, REJI M Ot Z85.89 PERSONAL HISTORY OF MALIGNANT NEOPLASM O 07/24/2019 O'DELL, MARTIN Reny MOSS Ot M25.471 EFFUSION, RIGHT ANKLE 07/24/2019 O'DELL, MARTINRoxi Oglesby APRN Ot R55 SYNCOPE AND COLLAPSE 07/24/2019 O'DELL, MARTIN Reny LAND MANAGER Ot S82.61XA DISP FX OF LATERAL MALLEOLUS OF RIGHT FI 07/24/2019 O'DELL, MARTIN Reny LAND MANAGER Ot W19.XXXA UNSPECIFIED FALL, INITIAL ENCOUNTER 07/29/2019 JOSE NIELSON Ot S82.831D OTH FX UPR LOW END R FIBULA, SUBS FOR 07/31/2019 ROVENSTINE DOKJEN L Ot E03.9 HYPOTHYROIDISM, UNSPECIFIED 07/31/2019 ROVENSTINE , MODESTO Barrientos Ot R11.2 NAUSEA WITH VOMITING, UNSPECIFIED 07/31/2019 ROVENSTINE , MODESTO Barrientos Ot Z88.0 ALLERGY STATUS TO PENICILLIN 07/31/2019 ROVENSTINE DOMODESTO Ot Z88.1 ALLERGY STATUS TO OTHER ANTIBIOTIC AGENT 07/31/2019 ROVENSTINE DO MODESTO Barrientos Ot Z88.5 ALLERGY STATUS TO NARCOTIC AGENT STATUS 07/31/2019 ROVENSTINE DO MODESTO Barrientos Ot Z88.8 ALLERGY STATUS TO [facility] DRUG/MEDS/BIOL SUB 07/31/2019 ROVENSTINE MODESTO MILIAN Ot Z98.51 TUBAL LIGATION STATUS 08/16/2019 JOSE NIELSON Ot S82.831D [facility] FX UPR LOW END R FIBULA, SUBS FOR Procedures There is no data. Results Test Result Range LIPID PANEL - 11/03/18 11:33 CHOLESTEROL, TOTAL 200 mg/dL <200 HDL CHOLESTEROL 51 mg/dL >50 TRIGLYCERIDES 132 mg/dL <150 LDL-CHOLESTEROL 124 mg/dL (calc) NRG CHOL/HDLC RATIO 3.9 (calc) <5.0 NON HDL CHOLESTEROL 149 mg/dL (calc) <13 0 CMP - 11/03/18 11:33 GLUCOSE 93 mg/dL 65-99 UREA NITROGEN (BUN) 24 mg/dL 7-25 CREATININE 0.57 mg/dL 0.50-0.99 eGFR NON-AFR. OMANI 95 mL/min/1.73m2 > OR = 60 eGFR 110 mL/min/1.73m2 > OR = 60 BUN/CREATININE RATIO NOT APPLICABLE (calc) 6-22 SODIUM 142 mmol/L 135-146 POTASSIUM 4.3 mmol/L 3.5-5.3 CHLORIDE 106 mmol/L 98-110 CARBON DIOXIDE 29 mmol/L 20-32 CALCIUM 9.4 mg/dL 8.6-10.4 PROTEIN, TOTAL 6.9 g/dL 6.1-8.1 ALBUMIN 4.2 g/dL 3.6-5.1 GLOBULIN 2.7 g/dL (calc) 1.9-3.7 ALBUMIN/GLOBULIN RATIO 1.6 (calc) 1.0-2. 5 BILIRUBIN, TOTAL 0.7 mg/dL 0.2-1.2 ALKALINE PHOSPHATASE 70 U/L 33-130 AST 14 U/L 10-35 ALT 11 U/L 6-29 CBC - 11/03/18 11:33 WHITE BLOOD CELL COUNT 5.9 Thousand/uL 3 .8-10.8 RED BLOOD CELL COUNT 4.34 Million/uL 3.8 0-5.10 HEMOGLOBIN 12.5 g/dL 11.7-15.5 HEMATOCRIT 38.2 % 35.0-45.0 MCV 88.0 fL 80.0-100.0 MCH 28.8 pg 27.0-33.0 MCHC 32.7 g/dL 32.0-36.0 RDW 14.2 % 11.0-15.0 PLATELET COUNT 119 Thousand/uL 140-400 MPV 13.5 fL 7.5-12.5 ABSOLUTE NEUTROPHILS 4466 cells/uL 1500- 7800 ABSOLUTE LYMPHOCYTES 915 cells/uL 850-39 00 ABSOLUTE MONOCYTES 401 cells/uL 200-950 ABSOLUTE EOSINOPHILS 89 cells/uL 15-500 ABSOLUTE BASOPHILS 30 cells/uL 0-200 NEUTROPHILS 75.7 % NRG LYMPHOCYTES 15.5 % NRG MONOCYTES 6.8 % NRG EOSINOPHILS 1.5 % NRG BASOPHILS 0.5 % NRG TSH - 11/03/18 11:33 TSH 0.49 mIU/L 0.40-4.50 THYROID STIMULATING HORMONE - 11/24/18 1 7:30 THYROID STIMULATING HORMONE 2.42 u[iU]/mL 0.35-4.94 Serum or plasma thyroxine (T4) free karina urement (mass/volume) - 11/24/18 17:30 Serum or plasma thyroxine (T4) free measurement (mass/ volume) 1.01 ng/dL 0.70-1.48 Complete blood count (CBC) with automate d white blood cell (WBC) differential - 11/24/18 17:35 Blood leukocytes automated count (number/volume) 9.1 10*3/uL 4.3-11.0 Blood erythrocytes automated count (number/volume) 4.51 10*6/uL 4.35-5.85 Venous blood hemoglobin measurement (mass/volume) 12.8 g/dL 11.5-16.0 Blood hematocrit (volume fraction) 39 % 35-52 Automated erythrocyte mean corpuscular volume 87 [ foz_us] 80-99 Automated erythrocyte mean corpuscular h emoglobin (mass per erythrocyte) 28 pg 25-34 Automated erythrocyte mean corpuscular h emoglobin concentration measurement (mass/volume) 33 g/dL 32-36 Automated erythrocyte distribution width ratio 14. 6 % 10.0- 14.5 Automated blood platelet count (count/volume) 128 10*3/uL 130-400 Automated blood platelet mean volume measurement 13.5 [foz_us] 7.4-10.4 Automated blood neutrophils/100 leukocytes 84 % 42-75 Automated blood lymphocytes/100 leukocytes 8 % 12-44 Blood monocytes/100 leukocytes 7 % 0-12 Automated blood eosinophils/100 leukocytes 0 % 0-10 Automated blood basophils/100 leukocytes 0 % 0-10 Blood neutrophils automated count (number/volume) 7.7 10*3 1.8-7.8 Blood lymphocytes automated count (number/volume) 0.7 10*3 1.0-4.0 Blood monocytes automated count (number/volume) 0. 7 10*3 0.0-1.0 Automated eosinophil count 0.0 10*3/uL 0 .0-0.3 Automated blood basophil count (count/volume) 0.0 10*3/uL 0.0-0.1 Blood manual differential performed dete ction - 11/24/18 17:35 Blood monocytes/100 leukocytes 5 % NRG Manual blood segmented neutrophils/100 leukocytes 52 % NRG Blood band neutrophils/100 leukocytes 39 % NRG Manual blood lymphocytes/100 leukocytes 4 % NRG Manual eosinophils/100 leukocytes in nose 0 % NRG Manual blood basophils/100 leukocytes 0 % NRG Blood erythrocyte morphology finding identification NORMAL NRG PT panel in platelet poor plasma by coag ulation assay - 11/24/18 17:35 Prothrombin time (PT) in platelet poor plasma by coagu lation assay 15.8 s 12.2-14.7 INR in platelet poor plasma or blood by coagulation as say 1.3 0.8-1.4 Activated partial thromboplastin time (a PTT) in platelet poor plasma bycoagulation assay - 11/24/18 17:35 Activated partial thromboplastin time (a PTT) in platelet poor plasma bycoagulation assay 35 s 24-35 Blood lactic acid measurement (moles/vol ume) - 11/24/18 17:35 Blood lactic acid measurement (moles/volume) 1.06 mmol/L 0.50-2.00 Comprehensive metabolic panel - 11/24/18 17:35 Serum or plasma sodium measurement (moles/volume) 138 mmol/L 135-145 Serum or plasma potassium measurement (moles/volume) 4.0 mmol/L 3.6-5.0 Serum or plasma chloride measurement (moles/volume) 101 mmol/L 98-107 Carbon dioxide 25 mmol/L 21-32 Serum or plasma anion gap determination (moles/volume) 12 mmol/L 5-14 Serum or plasma urea nitrogen measurement (mass/volume ) 20 mg/dL 7-18 Serum or plasma creatinine measurement (mass/volume) 0.69 mg/dL 0.60-1.30 Serum or plasma urea nitrogen/creatinine mass ratio 29 NRG Serum or plasma creatinine measurement w ith calculation of estimated glomerular filtration rate > NRG Serum or plasma glucose measurement (mass/volume) 120 mg/dL 70-105 Serum or plasma calcium measurement (mass/volume) 9.6 mg/dL 8.5-10.1 Serum or plasma total bilirubin measurement (mass/volu me) 0.4 mg/dL 0.1-1.0 Serum or plasma alkaline phosphatase jaqui surement (enzymatic activity/volume) 75 U/L 40-136 Serum or plasma aspartate aminotransfera se measurement (enzymatic activity/volume) 18 U/L 5-34 Serum or plasma alanine aminotransferase measurement (enzymatic activity/volume) 13 U/L 0-55 Serum or plasma protein measurement (mass/volume) 7.5 g/dL 6.4-8.2 Serum or plasma albumin measurement (mass/volume) 4.0 g/dL 3.2-4.5 CALCIUM CORRECTED 9.6 mg/dL 8.5-10.1 Bacterial blood culture - 11/24/18 17:35 Bacterial blood culture NG [facility] [place] Bacterial blood culture - 11/24/18 17:35 Bacterial blood culture NG [facility] [place] Influenza virus A and B antigen detectio n - 11/24/18 17:39 FLU RESULT NEGATIVE FOR INFLUENZA A AND B ANTIGENS BY IA NRG Complete urinalysis with reflex to cultu re - 11/24/18 18:05 Urine color determination YELLOW NRG Urine clarity determination CLEAR NR G Urine pH measurement by test strip 6.5 5-9 Specific gravity of urine by test strip < 1.016-1.022 Urine protein assay by test strip, semi-quantitative NEGATIVE NEGATIVE Urine glucose detection by automated test strip NE GATIVE NEGATIVE Erythrocytes detection in urine sediment by light micr oscopy 1+ NEGATIVE Urine ketones detection by automated test strip NE GATIVE NEGATIVE Urine nitrite detection by test strip NEGATIVE NEGATIVE Urine total bilirubin detection by test strip NEGA TIVE NEGATIVE Urine urobilinogen measurement by automated test strip (mass/volume) 0.2 mg/dL NORMAL Urine leukocyte esterase detection by dipstick NEG ATIVE NEGATIVE Automated urine sediment erythrocyte cou nt by microscopy (number/high power field) [HPF] NRG Automated urine sediment leukocyte count by microscopy (number/high power field) NONE NRG Bacteria detection in urine sediment by light microsco py NONE NRG Squamous epithelial cells detection in u rine sediment by light microscopy 2-5 NRG Crystals detection in urine sediment by light microsco py NONE NRG Casts detection in urine sediment by light microscopy NONE NRG Mucus detection in urine sediment by light microscopy NEGATIVE NRG Complete urinalysis with reflex to culture NO NRG Bacterial urine culture - 11/24/18 18:05 Bacterial urine culture NG NRG Complete blood count (CBC) with automate d white blood cell (WBC) differential - 11/25/18 05:44 Blood leukocytes automated count (number/volume) 4.8 10*3/uL 4.3-11.0 Blood erythrocytes automated count (number/volume) 3.93 10*6/uL 4.35-5.85 Venous blood hemoglobin measurement (mass/volume) 11.3 g/dL 11.5-16.0 Blood hematocrit (volume fraction) 35 % 35-52 Automated erythrocyte mean corpuscular volume 88 [ foz_us] 80-99 Automated erythrocyte mean corpuscular h emoglobin (mass per erythrocyte) 29 pg 25-34 Automated erythrocyte mean corpuscular h emoglobin concentration measurement (mass/volume) 33 g/dL 32-36 Automated erythrocyte distribution width ratio 14. 9 % 10.0- 14.5 Automated blood platelet count (count/volume) 103 10*3/uL 130-400 Automated blood platelet mean volume measurement 13.3 [foz_us] 7.4-10.4 Automated blood neutrophils/100 leukocytes 80 % 42-75 Automated blood lymphocytes/100 leukocytes 11 % 12-44 Blood monocytes/100 leukocytes 9 % 0-12 Automated blood eosinophils/100 leukocytes 0 % 0-10 Automated blood basophils/100 leukocytes 0 % 0-10 Blood neutrophils automated count (number/volume) 3.9 10*3 1.8-7.8 Blood lymphocytes automated count (number/volume) 0.5 10*3 1.0-4.0 Blood monocytes automated count (number/volume) 0. 4 10*3 0.0-1.0 Automated eosinophil count 0.0 10*3/uL 0 .0-0.3 Automated blood basophil count (count/volume) 0.0 10*3/uL 0.0-0.1 Comprehensive metabolic panel - 11/25/18 05:44 Serum or plasma sodium measurement (moles/volume) 142 mmol/L 135-145 Serum or plasma potassium measurement (moles/volume) 3.5 mmol/L 3.6-5.0 Serum or plasma chloride measurement (moles/volume) 110 mmol/L 98-107 Carbon dioxide 21 mmol/L 21-32 Serum or plasma anion gap determination (moles/volume) 11 mmol/L 5-14 Serum or plasma urea nitrogen measurement (mass/volume ) 7 mg/dL 7-18 Serum or plasma creatinine measurement (mass/volume) 0.58 mg/dL 0.60-1.30 Serum or plasma urea nitrogen/creatinine mass ratio 12 NRG Serum or plasma creatinine measurement w ith calculation of estimated glomerular filtration rate > NRG Serum or plasma glucose measurement (mass/volume) 93 mg/dL 70-105 Serum or plasma calcium measurement (mass/volume) 8.4 mg/dL 8.5-10.1 Serum or plasma total bilirubin measurement (mass/volu me) 0.3 mg/dL 0.1-1.0 Serum or plasma alkaline phosphatase jaqui surement (enzymatic activity/volume) 58 U/L 40-136 Serum or plasma aspartate aminotransfera se measurement (enzymatic activity/volume) 17 U/L 5-34 Serum or plasma alanine aminotransferase measurement (enzymatic activity/volume) 12 U/L 0-55 Serum or plasma protein measurement (mass/volume) 6.2 g/dL 6.4-8.2 Serum or plasma albumin measurement (mass/volume) 3.3 g/dL 3.2-4.5 CALCIUM CORRECTED 9.0 mg/dL 8.5-10.1 Automated blood complete blood count (he mogram) panel - 11/26/18 06:15 Blood leukocytes automated count (number/volume) 3.1 10*3/uL 4.3-11.0 Blood erythrocytes automated count (number/volume) 3.84 10*6/uL 4.35-5.85 Venous blood hemoglobin measurement (mass/volume) 11.1 g/dL 11.5-16.0 Blood hematocrit (volume fraction) 34 % 35-52 Automated erythrocyte mean corpuscular volume 88 [ foz_us] 80-99 Automated erythrocyte mean corpuscular h emoglobin (mass per erythrocyte) 29 pg 25-34 Automated erythrocyte mean corpuscular h emoglobin concentration measurement (mass/volume) 33 g/dL 32-36 Automated erythrocyte distribution width ratio 14. 9 % 10.0- 14.5 Automated blood platelet count (count/volume) 108 10*3/uL 130-400 Automated blood platelet mean volume measurement 13.2 [foz_us] 7.4-10.4 Whole blood basic metabolic panel - 11/11 06:15 Serum or plasma sodium measurement (moles/volume) 142 mmol/L 135-145 Serum or plasma potassium measurement (moles/volume) 3.7 mmol/L 3.6-5.0 Serum or plasma chloride measurement (moles/volume) 111 mmol/L 98-107 Carbon dioxide 24 mmol/L 21-32 Serum or plasma anion gap determination (moles/volume) 7 mmol/L 5-14 Serum or plasma urea nitrogen measurement (mass/volume ) 4 mg/dL 7-18 Serum or plasma creatinine measurement (mass/volume) 0.58 mg/dL 0.60-1.30 Serum or plasma urea nitrogen/creatinine mass ratio 7 NRG Serum or plasma creatinine measurement w ith calculation of estimated glomerular filtration rate > NRG Serum or plasma glucose measurement (mass/volume) 90 mg/dL 70-105 Serum or plasma calcium measurement (mass/volume) 8.9 mg/dL 8.5-10.1 Pathologist review of blood test by comm ent - 11/26/18 06:15 Blood leukocytes automated count (number/volume) 3.1 10*3/uL 4.3-11.0 Blood erythrocytes automated count (number/volume) 3.84 10*6/uL 4.35-5.85 Venous blood hemoglobin measurement (mass/volume) 11.1 g/dL 11.5-16.0 Blood hematocrit (volume fraction) 34 % 35-52 Automated erythrocyte mean corpuscular volume 89 [ foz_us] 80-99 Automated erythrocyte mean corpuscular h emoglobin (mass per erythrocyte) 29 pg 25-34 Automated erythrocyte mean corpuscular h emoglobin concentration measurement (mass/volume) 32 g/dL 32-36 Automated erythrocyte distribution width ratio 14. 9 % 10.0- 14.5 Automated blood platelet count (count/volume) 108 10*3/uL 130-400 Automated blood platelet mean volume measurement 13.2 [foz_us] 7.4-10.4 Automated blood neutrophils/100 leukocytes 57 % 42-75 Automated blood lymphocytes/100 leukocytes 28 % 12-44 Blood monocytes/100 leukocytes 11 % NRG Automated blood eosinophils/100 leukocytes 0 % 0-10 Automated blood basophils/100 leukocytes 1 % 0-10 Blood neutrophils automated count (number/volume) 1.8 10*3 1.8-7.8 Blood lymphocytes automated count (number/volume) 0.9 10*3 1.0-4.0 Blood monocytes automated count (number/volume) 0. 5 10*3 0.0-1.0 Automated eosinophil count 0.0 10*3/uL 0 .0-0.3 Automated blood basophil count (count/volume) 0.0 10*3/uL 0.0-0.1 Manual blood segmented neutrophils/100 leukocytes 49 % NRG Blood band neutrophils/100 leukocytes 11 % NRG Manual blood lymphocytes/100 leukocytes 29 % NRG Manual eosinophils/100 leukocytes in nose 0 % NRG Manual blood basophils/100 leukocytes 0 % NRG Blood anisocytosis detection by light microscopy S LIGHT NRG Blood reticulocytes count (number/volume) 17 10*9/ L 24-90 Blood reticulocytes/100 erythrocytes 0.45 % 0.50-2.40 Automated blood complete blood count ( mogram) panel - 11/27/18 06:10 Blood leukocytes automated count (number/volume) 2.0 10*3/uL 4.3-11.0 Blood erythrocytes automated count (number/volume) 3.64 10*6/uL 4.35-5.85 Venous blood hemoglobin measurement (mass/volume) 10.3 g/dL 11.5-16.0 Blood hematocrit (volume fraction) 32 % 35-52 Automated erythrocyte mean corpuscular volume 88 [ foz_us] 80-99 Automated erythrocyte mean corpuscular h emoglobin (mass per erythrocyte) 28 pg 25-34 Automated erythrocyte mean corpuscular h emoglobin concentration measurement (mass/volume) 32 g/dL 32-36 Automated erythrocyte distribution width ratio 14. 9 % 10.0- 14.5 Automated blood platelet count (count/volume) 108 10*3/uL 130-400 Automated blood platelet mean volume measurement 13.3 [foz_us] 7.4-10.4 Whole blood basic metabolic panel - 12/12 06:10 Serum or plasma sodium measurement (moles/volume) 142 mmol/L 135-145 Serum or plasma potassium measurement (moles/volume) 3.2 mmol/L 3.6-5.0 Serum or plasma chloride measurement (moles/volume) 111 mmol/L 98-107 Carbon dioxide 24 mmol/L 21-32 Serum or plasma anion gap determination (moles/volume) 7 mmol/L 5-14 Serum or plasma urea nitrogen measurement (mass/volume ) 3 mg/dL 7-18 Serum or plasma creatinine measurement (mass/volume) 0.50 mg/dL 0.60-1.30 Serum or plasma urea nitrogen/creatinine mass ratio 6 NRG Serum or plasma creatinine measurement w ith calculation of estimated glomerular filtration rate > NRG Serum or plasma glucose measurement (mass/volume) 94 mg/dL 70-105 Serum or plasma calcium measurement (mass/volume) 8.9 mg/dL 8.5-10.1 Complete blood count (CBC) with automate d white blood cell (WBC) differential - 07/10/19 10:47 Blood leukocytes automated count (number/volume) 22.5 10*3/uL 4.3-11.0 Blood erythrocytes automated count (number/volume) 4.07 10*6/uL 4.35-5.85 Venous blood hemoglobin measurement (mass/volume) 11.9 g/dL 11.5-16.0 Blood hematocrit (volume fraction) 35 % 35-52 Automated erythrocyte mean corpuscular volume 87 [ foz_us] 80-99 Automated erythrocyte mean corpuscular h emoglobin (mass per erythrocyte) 29 pg 25-34 Automated erythrocyte mean corpuscular h emoglobin concentration measurement (mass/volume) 34 g/dL 32-36 Automated erythrocyte distribution width ratio 13. 9 % 10.0- 14.5 Automated blood platelet count (count/volume) 159 10*3/uL 130-400 Automated blood platelet mean volume measurement 12.0 [foz_us] 7.4-10.4 Automated blood neutrophils/100 leukocytes 90 % 42-75 Automated blood lymphocytes/100 leukocytes 4 % 12-44 Blood monocytes/100 leukocytes 6 % 0-12 Automated blood eosinophils/100 leukocytes 0 % 0-10 Automated blood basophils/100 leukocytes 0 % 0-10 Blood neutrophils automated count (number/volume) 20.2 10*3 1.8-7.8 Blood lymphocytes automated count (number/volume) 0.8 10*3 1.0-4.0 Blood monocytes automated count (number/volume) 1. 3 10*3 0.0-1.0 Automated eosinophil count 0.0 10*3/uL 0 .0-0.3 Automated blood basophil count (count/volume) 0.0 10*3/uL 0.0-0.1 Manual absolute plasma cell count - 06/26 01/11 10:47 Blood monocytes/100 leukocytes 6 % NRG Manual blood segmented neutrophils/100 leukocytes 61 % NRG Blood band neutrophils/100 leukocytes 30 % NRG Manual blood lymphocytes/100 leukocytes 2 % NRG Manual eosinophils/100 leukocytes in nose 0 % NRG Manual blood metamyelocytes/100 leukocytes 1 % NRG Comprehensive metabolic panel - 07/10/19 10:47 Serum or plasma sodium measurement (moles/volume) 142 mmol/L 135-145 Serum or plasma potassium measurement (moles/volume) 3.7 mmol/L 3.6-5.0 Serum or plasma chloride measurement (moles/volume) 102 mmol/L 98-107 Carbon dioxide 26 mmol/L 21-32 Serum or plasma anion gap determination (moles/volume) 14 mmol/L 5-14 Serum or plasma urea nitrogen measurement (mass/volume ) 12 mg/dL 7-18 Serum or plasma creatinine measurement (mass/volume) 0.67 mg/dL 0.60-1.30 Serum or plasma urea nitrogen/creatinine mass ratio 18 NRG Serum or plasma creatinine measurement w ith calculation of estimated glomerular filtration rate > NRG Serum or plasma glucose measurement (mass/volume) 115 mg/dL 70-105 Serum or plasma calcium measurement (mass/volume) 9.5 mg/dL 8.5-10.1 Serum or plasma total bilirubin measurement (mass/volu me) 0.6 mg/dL 0.1-1.0 Serum or plasma alkaline phosphatase jaqui surement (enzymatic activity/volume) 71 U/L 40-136 Serum or plasma aspartate aminotransfera se measurement (enzymatic activity/volume) 16 U/L 5-34 Serum or plasma alanine aminotransferase measurement (enzymatic activity/volume) 11 U/L 0-55 Serum or plasma protein measurement (mass/volume) 7.0 g/dL 6.4-8.2 Serum or plasma albumin measurement (mass/volume) 3.8 g/dL 3.2-4.5 CALCIUM CORRECTED 9.7 mg/dL 8.5-10.1 Capillary blood glucose measurement by g lucometer (mass/volume) - 07/24/19 17:27 Capillary blood glucose measurement by glucometer (mas s/volume) 173 mg/dL 70-110 Encounters ACCT No. Visit Date/Time Discharge Status Pt. Type Provider Facility Loc./Unit Complaint [id number] 07/28/2019 13:20:00 07/28/2019 23:59: 59 [facility] [id number] 11/03/2018 10:45:00 Document Registration [id number] 08/10/2019 08:30:00 23:59:59 CLS Outpatient JOSE NIELSON [facility] RAD FS S82.831D [id number] 07/27/2019 08:47:00 23:59:59 CLS Outpatient JOSE NIELSON [facility] RAD FS S82.831A [id number] 07/24/2019 17:14:00 18:31:00 DIS Emergency MODESTO ALCANTARA DO [facility] ER FS VOMITING; DIARR HEA [id number] 07/10/2019 10:30:00 23:59:59 CLS Outpatient MARTIN HANSON APRN [facility] RAD FS M25.471 M25.571 W19.XXX A R55 [id number] 01/21/2019 09:17:00 23:59:59 CLS Outpatient PABLO CHAVEZ, REJI Suarez [facility] RAD FS R05 [id number] 11/24/2018 18:53:00 019 23:59:59 CLS Inpatient DANIEL CHAVEZ, AMIRAH Blount [facility] 4TH [place] SEPSIS
== END 2019-07-24 18:31 | disposition home or self-care (01) ==
LOC: EDUNIT# 17:13 → ER FS 17:14
DX: R11.2 Nausea with vomiting, unspecified (principal); E03.9 Hypothyroidism, unspecified; Z88.0 Allergy status to penicillin; Z88.5 Allergy status to narcotic agent; Z88.1 Allergy status to other antibiotic agents; Z88.8 Allergy status to other drugs, medicaments and biological substances; Z98.51 Tubal ligation status
CPT/HCPCS: 82962

== ENCOUNTER → 2019-07-27 | Outpatient (CLI) | payer MEDICARE, MEDICAID ==
[~2019-07-27] MED LIST changes: +ONDA4TAB11 PO
--- NOTE | 2019-07-27 09:08 | Diagnostic Imaging Report ---
CLINICAL HISTORY: Follow-up right fibular fracture. COMPARISON: 07/10/2019 TECHNIQUE: 3 views of the right fibula. FINDINGS: There is redemonstration of the [place] B type fracture involving the distal right fibula with stable amount of lateral displacement of the distal fracture fragment. There has been interval decrease in surrounding soft tissue edema. No change in the alignment of the ankle mortise is seen. No new fractures are identified. IMPRESSION: 1. Stable appearance of the [place] B type fracture of the distal right fibula with stable small amount of lateral displacement of the fracture fragment. There is decreased surrounding edema. No new fractures. Dictated by: Dictated on workstation # [id number]
== END ==
LOC: RAD FS 08:47
PROVIDERS: ATTEND Nurse Practitioner
DX: S82.831D Other fracture of upper and lower end of right fibula, subsequent encounter for closed fracture with routine healing (principal)
CPT/HCPCS: 73610

== ENCOUNTER → 2019-08-10 | Outpatient (CLI) | payer MEDICARE, MEDICAID ==
--- NOTE | 2019-08-10 08:51 | Diagnostic Imaging Report ---
INDICATION: Ankle fracture. COMPARISON: July 27, 2019. TECHNIQUE: Three radiographs of the right ankle dated August 10, 2019. FINDINGS: Previously noted distal fibular fracture is again identified just proximal to the level of the tibial plafond. Overall alignment is stable with mild lateral displacement. Blurring of the fracture plane with slightly increased sclerosis at that location. No additional new fracture or dislocation. No destructive osseous process. The talar dome is unremarkable. The ankle mortise is symmetric. Tiny plantar calcaneal enthesophyte. No suspicious radiopaque foreign body. IMPRESSION: 1. Minimal interval healing of previously noted distal fibular fracture remaining in stable alignment. Recommend continued radiographic follow-up to ensure complete healing. 2. No new acute osseous abnormality. Dictated by: Dictated on workstation # [id number]
== END ==
LOC: RAD FS 08:30
PROVIDERS: ATTEND Nurse Practitioner
DX: S82.831D Other fracture of upper and lower end of right fibula, subsequent encounter for closed fracture with routine healing (principal)
CPT/HCPCS: 73610

== ENCOUNTER → 2019-08-31 | Outpatient (CLI) | payer MEDICARE, MEDICAID ==
--- NOTE | 2019-08-31 09:44 | Diagnostic Imaging Report ---
INDICATION: Fracture follow-up. COMPARISON: 08/10/2019 FINDINGS: 3 radiographic views of the right ankle were obtained and show interval progression of sclerosis bridging the previously described distal fibular fracture. Fracture fragments are in stable position. No new acute fracture or dislocation is seen. Joint spaces are maintained. No unexpected radiopaque foreign bodies are identified. IMPRESSION: 1. Progressive interval healing of previously described distal right fibular fracture. Dictated by: Dictated on workstation # [id number]
== END ==
LOC: RAD FS 09:11
PROVIDERS: ATTEND Nurse Practitioner
DX: S82.831D Other fracture of upper and lower end of right fibula, subsequent encounter for closed fracture with routine healing (principal)
CPT/HCPCS: 73610

== ENCOUNTER 2019-09-16 01:19 | Inpatient (IN) | payer MEDICARE, MEDICAID ==
[~2019-09-16] VITALS: Ht 165 cm; Wt 46.8 kg
[2019-09-16] VITALS (19 sets, daily range): BP systolic 78–138; BP diastolic 43–87
[2019-09-16] MEDS ORDERED: ACETAMINOPHEN 500 MG TAB (TYLENOL) PO STA (01:42)
--- NOTE | 2019-09-16 01:42 | ED Syncope ---
General Stated Complaint: PASTED OUT Source of Information: Patient History of Present Illness Date Seen by Provider: Sep 16, 2019 Time Seen by Provider: 01:21 Initial Comments 69-year-old female presenting with complaints of syncope at home. 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 She is not currently having any chemotherapy or cancer treatments. She states that she recently had scans done of her neck and chest by her oncologist out of [facility] and that they were clear. She has been losing weight and her oncologist had her counting carbs and calories to gain weight. She had been feeling better until the last few days. Today she had her family helping her get up to the bathroom when she passed out. She denies any pain. She is having trouble trying to stay awake. She denies any pain with urination. She denies being short of breath or coughing more than usual. Allergies and Home Medications Allergies Coded Allergies: Penicillins (Verified Allergy, Unknown, 11/24/18) codeine (Verified Allergy, Unknown, 11/24/18) lidocaine (Verified Allergy, Unknown, 11/24/18) oxytetracycline (Verified Allergy, Unknown, 11/24/18) Home Medications Ipratropium/Albuterol Sulfate 3 Ml Ampul.neb, 3 ML INH Q6H PRN for SHORTNESS OF BREATH Prescribed by: AMIRAH SANCHEZ on 11/27/18 1047 Levofloxacin 750 Mg Tablet, 750 MG PO Q48H Prescribed by: AMIRAH SANCHEZ on 11/27/18 1047 Levothyroxine Sodium 125 Mcg Tablet, 125 MCG PO DAILY, (Reported) Ondansetron 4 Mg Tab.rapdis, 4 MG PO Q6H Prescribed by: MODESTO ALCANTARA on 07/24/19 1817 Patient Home Medication List Home Medication List Reviewed: Yes Review of Systems Constitutional: chills, fever, malaise, weakness EENTM: nose congestion (chronic congestion) Respiratory: cough (chronic cough, no worse than normal); No hemoptysis, No short of breath, No stridor, No wheezing Cardiovascular: No chest pain Gastrointestinal: No abdominal pain, No nausea, No vomiting Genitourinary: no symptoms reported Musculoskeletal: no symptoms reported Skin: no symptoms reported Psychiatric/Neurological: Weakness (generalized) Past Hfqowec-Gdavwq-Zxqsex Hx Past Med/Social Hx: Reviewed Nursing Past Med/Soc Hx Patient Social History Recent Foreign Travel: No Contact w/Someone Who Travel: No Recent Hopitalizations: No Seasonal Allergies Seasonal Allergies: Yes Past Medical History Surgeries: Yes (VEIN STRIPPING, FEEDING TUBE PLACEMENT) Abdominal, Tubal Ligation Respiratory: No Cardiac: No Neurological: No 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 No Pertinent Family Hx Physical Exam Vital Signs Vital Signs - First Documented 09/16/19 09/16/19 01:20 01:22 Temp 38.9 Pulse 107 Resp 20 B/P (MAP) 115/55 (75) Pulse Ox 91 O2 Delivery Nasal Cannula O2 Flow Rate 4.00 FiO2 91 Capillary Refill : Height, Weight, BMI Height: 5'5.00" Weight: 113lbs. 0.0oz. 51.590228ym; 16.00 BMI Method:Stated General Appearance: Cachetic, Thin, Other (appears chronically ill) HEENT: PERRL/EOMI; No Moist Mucous Membranes Neck: Non Tender, Supple Cardiovascular: Normal Peripheral Pulses, Tachycardia Respiratory: Chest Non Tender, No Accessory Muscle Use, No Respiratory Distress; No Crackles; Decreased Breath Sounds; No Stridor, No Wheezing Gastrointestinal: Normal Bowel Sounds, No Pulsatile Mass, Non Tender, Soft Back: Normal Inspection Extremities: Normal Capillary Refill, Normal Inspection, Normal Range of Motion, Non Tender, No Pedal Edema Neurologic/Psychiatric: No Alert (somnolent but answers questions ); Oriented x3, No Motor/Sensory 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, 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 Norm as Tested Cranial Nerves: Normal Hearing, Normal Speech, PERRL Motor/Sensory: No Motor Deficit, No Sensory Deficit Skin: Warm/Dry, Pallor Focused Exam Sepsis Stage: Sepsis Possible Source: Pulmonary Lactate Level 09/16/19 01:27: Lactic Acid Level 2.63*H 09/16/19 03:27: Lactic Acid Level 1.77 Time of Focused Exam: 02:18 Respiratory: Chest Non Tender, No Accessory Muscle Use, No Respiratory Distress, Decreased Breath Sounds, Rhonci Cardiovascular: Regular Rate, Rhythm, Normal Peripheral Pulses Capillary Refill: Less Than 3 Seconds Peripheral Pulses: 2+ Carotid (R), 2+ Carotid (L), 2+ Radial Pulses (R), 2+ Radial Pulses (L) Skin: normal color, warm/dry Lactic Acid Level Laboratory Tests Test 09/16/19 01:27 09/16/19 03:27 Lactic Acid Level 2.63 MMOL/L (0.50-2.00) *H 1.77 MMOL/L (0.50-2.00) Within 3hrs of presentation: Admin fluids, Admin ABX, Blood cultures prior to ABX's, Focus exam, Lactate level Progress/Results/Core Measures Results/Orders Lab Results Laboratory Tests Test 09/16/19 01:27 09/16/19 01:38 09/16/19 03:13 09/16/19 03:27 Range/Units White Blood Count 9.4 4.3-11.0 10^3/uL Red Blood Count 4.55 4.35-5.85 10^6/uL Hemoglobin 13.1 11.5-16.0 G/DL Hematocrit 40 35-52 % Mean Corpuscular Volume 88 80-99 FL Mean Corpuscular Hemoglobin 29 25-34 PG Mean Corpuscular Hemoglobin Concent 33 32-36 G/DL Red Cell Distribution Width 14.4 10.0-14.5 % Platelet Count 204 130-400 10^3/uL Mean Platelet Volume 11.5 H 7.4-10.4 FL Neutrophils (%) (Auto) 86 H 42-75 % Lymphocytes (%) (Auto) 9 L 12-44 % Monocytes (%) (Auto) 4 0-12 % Eosinophils (%) (Auto) 0 0-10 % Basophils (%) (Auto) 0 0-10 % Neutrophils # (Auto) 8.1 H 1.8-7.8 X 10^3 Lymphocytes # (Auto) 0.9 L 1.0-4.0 X 10^3 Monocytes # (Auto) 0.4 0.0-1.0 X 10^3 Eosinophils # (Auto) 0.0 0.0-0.3 10^3/uL Basophils # (Auto) 0.0 0.0-0.1 10^3/uL Neutrophils % (Manual) 80 % Lymphocytes % (Manual) 7 % Monocytes % (Manual) 5 % Eosinophils % (Manual) 1 % Band Neutrophils 2 % Reactive Lymphocytes 5 % Microcytosis MARKED Sodium Level 141 135-145 MMOL/L Potassium Level 3.7 3.6-5.0 MMOL/L Chloride Level 99 98-107 MMOL/L Carbon Dioxide Level 26 21-32 MMOL/L Anion Gap 16 H 5-14 MMOL/L Blood Urea Nitrogen 17 7-18 MG/DL Creatinine 0.55 L 0.60-1.30 MG/DL Estimat Glomerular Filtration Rate > 60 BUN/Creatinine Ratio 31 Glucose Level 148 H 70-105 MG/DL Lactic Acid Level 2.63 *H 1.77 0.50-2.00 MMOL/L Calcium Level 9.8 8.5-10.1 MG/DL Corrected Calcium 9.6 8.5-10.1 MG/DL Magnesium Level 1.8 1.6-2.4 MG/DL Total Bilirubin 0.3 0.1-1.0 MG/DL Aspartate Amino Transf (AST/SGOT) 18 5-34 U/L Alanine Aminotransferase (ALT/SGPT) 12 0-55 U/L Alkaline Phosphatase 88 40-136 U/L Troponin I < 0.30 <0.30 NG/ML C-Reactive Protein 0.26 <0.50 MG/DL Pro-B-Type Natriuretic Peptide 279.9 H <75.0 PG/ML Total Protein 7.9 6.4-8.2 GM/DL Albumin 4.3 3.2-4.5 GM/DL Blood Gas Puncture Site RAC Blood Gas Patient Temperature 38.9 Arterial Blood pH 7.46 H 7.37-7.43 Arterial Blood Partial Pressure CO2 44 35-45 MMHG Arterial Blood Partial Pressure O2 59 L 79-93 MMHG Arterial Blood HCO3 31 H 23-27 MMOL/L Arterial Blood Total CO2 32.7 H 21.0-31.0 MMOL/L Arterial Blood Oxygen Saturation 92 L 94-100 % Arterial Blood Base Excess 6.6 H -2.5-2.5 MMOL/L Vamsi Test NEGATIVE Blood Gas Ventilator Setting NO Blood Gas Inspired Oxygen 4 Urine Color YELLOW Urine Clarity CLEAR Urine pH 7.5 5-9 Urine Specific [place] 1.015 L 1.016-1.022 Urine Protein NEGATIVE NEGATIVE Urine Glucose (UA) NEGATIVE NEGATIVE Urine Ketones NEGATIVE NEGATIVE Urine Nitrite NEGATIVE NEGATIVE Urine Bilirubin NEGATIVE NEGATIVE Urine Urobilinogen 0.2 < = 1.0 MG/DL Urine Leukocyte Esterase NEGATIVE NEGATIVE Urine RBC (Auto) TRACE-I NEGATIVE Urine RBC 0-2 /HPF Urine WBC NONE /HPF Urine Squamous Epithelial Cells 5-10 /HPF Urine Crystals NONE /LPF Urine Bacteria NEGATIVE /HPF Urine Casts NONE /LPF Urine Mucus NEGATIVE /LPF Urine Culture Indicated NO Micro Results Microbiology 09/16/19 Influenza Types A,B Antigen (CADEN) - Final, Complete My Orders Orders - LUL DODD MD Cbc With Automated Diff (09/16/19 01:35) Comprehensive Metabolic Panel (09/16/19 01:35) Blood Culture (09/16/19 01:35) Chest 1 View Ap/Pa Only (09/16/19 01:35) Albuterol/Ipra Inhalation Soln (Duoneb I (09/16/19 01:45) Magnesium (09/16/19 01:35) Ekg Tracing (09/16/19 01:35) O2 (09/16/19 01:35) Ed Iv/Invasive Line Start (09/16/19 01:35) Sputum Culture (09/16/19 01:35) Monitor-Rhythm Ecg Trace Only (09/16/19 01:35) Crp Fs (09/16/19 01:35) Lactic Acid Analyzer (09/16/19 01:35) Svn Small Volume Nebulizer (09/16/19 01:35) Troponin I Fs (09/16/19 01:37) Probnp Fs (09/16/19 01:37) Arterial Blood Gas (09/16/19 01:37) Ct Head Wo (09/16/19 01:37) Ct Angio Chest W (09/16/19 01:37) Influenza A And B Antigens (09/16/19 01:42) Acetaminophen Tablet (Tylenol Tablet) (09/16/19 01:42) Ua Culture If Indicated (09/16/19 01:42) Ns Iv 1000 Ml (Sodium Chloride 0.9%) (09/16/19 01:44) Manual Differential (09/16/19 01:27) Iohexol Injection (Omnipaque 350 Mg/Ml 1 (09/16/19 02:15) Received Contrast (Hold Metformin- Contr (09/16/19 02:15) Sodium Chloride Flush (Catheter Flush Sy (09/16/19 02:15) Ns (Ivpb) (Sodium Chloride 0.9% Ivpb Bag (09/16/19 02:15) Ceftriaxone For Iv Use (Rocephin For I (09/16/19 02:37) Azithromycin Injection (Zithromax Inject (09/16/19 02:37) Ns (Ivpb) (Sodium Chloride 0.9%) (09/16/19 02:37) Medications Given in ED Current Medications Medications Dose Ordered Sig/Paul Route Start Time Stop Time Status Last Admin Dose Admin Albuterol/ Ipratropium 3 ml ONCE ONCE INH 09/16/19 01:45 09/16/19 01:46 DC 09/16/19 01:58 3 ML Iohexol 100 ml ONCE ONCE IV 09/16/19 02:15 09/16/19 02:16 DC 09/16/19 02:32 100 ML Sodium Chloride 10 ml NEEDED PRN IV 09/16/19 02:15 09/16/19 02:32 10 ML Sodium Chloride 100 ml ONCE ONCE IV 09/16/19 02:15 09/16/19 02:16 DC 09/16/19 02:32 100 ML Vital Signs/I&O 09/16/19 09/16/19 09/16/19 09/16/19 01:20 01:22 02:00 03:04 Temp 38.9 37.7 Pulse 107 100 97 Resp 20 20 18 B/P (MAP) 115/55 (75) 120/54 123/49 Pulse Ox 91 95 96 O2 Delivery Nasal Cannula Nasal Cannula Nasal Cannula Nasal Cannula O2 Flow Rate 4.00 4.00 4.00 4.00 FiO2 91 Progress Progress Note #1: Time: 01:39 Progress Note Obtain labs, ABG, ECG, CXR and cardiac testing. With her sink hole also obtain a CT of her head and have him history of cancer and recent weight loss will plan on scanning her chest evaluate for possible PE especially since she has been hypoxic. Placed on 4 L of oxygen by nasal cannula. With her fever will also obtain a influenza swab, blood cultures and lactic acid. Give Tylenol for the fever and start with a liter of normal saline for hydration and possible sepsis Progress Note #2: Time: 02:18 Progress Note Elevated Lactic acid at 2.69. CBC does not show any elevated white blood cell count. Her chest x-ray on my review of the one view film shows right lower lobe infiltrate. Chemistry panel does not show any acute significant abnormality in terms of her heart electrolytes or renal function. On repeat exam of the patient and review of the results with patient and family she is much more alert now and moving better air as she is getting a breathing treatment. Her oxygen saturation comes up to 100%. Her pH is normal on her ABG and she is not retaining CO2. She has mildly low PO2. Advised patient and family that we would be treating her with antibiotics for her pneumonia and fluids for sepsis. Will admit the patient to [facility] for sepsis and pneumonia. Patient was agreeable with this plan. Will await the CT chest to ensure that she does not have PE that also needs treated Progress Note #3: Time: 03:46 Progress Note Imaging and tests are all back to be able to speak with Dr. Saleh since the patient follows with Dr. Shah. The patient will be admitted with sepsis and pneumonia. Admit to the ICU for now. Continue with IV fluids and use the sepsis protocol set Initial ECG Impression Date: Sep 16, 2019 Initial ECG Impression Time: 01:36 Initial ECG Rate: 99 Initial ECG Rhythm: Normal Sinus Comment Sinus rhythm with a heart rate of 99 bpm. TN interval of 138 ms. QT interval 349 ms and a QTc interval 448 ms. She has a left bundle-branch block. Diagnostic Imaging Diagonstic Imaging: Xray Plain Films/CT/US/NM/MRI: chest Comments On my review of her 1 view chest x-ray she has a right lower lobe infiltrate for pneumonia Diagonstic Imaging: CT Plain Films/CT/US/NM/MRI: head Comments No acute intracranial pathology. Read by radiologist Luis Rsos MD at 2:14 AM and faxed at 2:36 AM Reviewed: Reviewed Night [facility] Study Diagonstic Imaging: CT Plain Films/CT/US/NM/MRI: chest Comments Consolidation in the lower lobes and airspace disease within the lung bases suspicious for pneumonia. Read by radiologist Dave Ross MD at 0306 AM and faxed at 0338 AM Departure Communication (Admissions) Time/Spoke to Admitting Phy: 03:[address] Saleh for the hospitalist service about the patient of Dr. Shah. Will admit to ICU for sepsis and pneumonia. She has shown improvement with treatment here in the ED. Will continue IV fluids and antibiotics. Admit with sepsis order set Impression Primary Impression: Pneumonia of right lower lobe due to infectious organism Additional Impressions: Sepsis due to pneumonia Hypoxia Syncope Qualified Codes: R55 - Syncope and collapse Disposition: ADMITTED INPATIENT Condition: Improved Admissions Decision to Admit Reason: Admit from ER (General) Decision to Admit/Date: Sep 16, 2019 Time/Decision to Admit Time: 03:46 Departure-Patient Inst. Referrals: REJI SHAH MD (PCP/Family) Primary Care Physician LUL DODD MD Sep 16, 2019 01:42
[2019-09-16] MEDS ORDERED: NS IV 1000 ML 1,000 ML IV STA (01:44)
[2019-09-16] MEDS ORDERED: RT-ALBUTEROL/IPRATROPIUM 3 ML (DUONEB) VIAL INH ONE (01:45)
[2019-09-16 01:46] LABS: ABG BASE EXCESS 6.6 MMOL/L (-2.5-2.5); ABG OXYGEN SATURATION 92 % (94-100); ABG PCO2 44 MMHG (35-45); ABG PH 7.46 (7.37-7.43); ABG PO2 59 MMHG (79-93); ABG TCO2 32.7 MMOL/L (21.0-31.0); INSPIRED O2 4; VENTILATOR NO
[2019-09-16 01:47] LABS: ALLENS TEST NEGATIVE; PATIENT TEMP 38.9
[2019-09-16 01:48] LABS: BASOPHILS % (AUTO) 0 % (0-10); EOSINOPHILS % (AUTO) 0 % (0-10); HEMATOCRIT 40 % (35-52); HEMOGLOBIN 13.1 G/DL (11.5-16.0); LYMPHOCYTES # (AUTO) 0.9 X 10^3 (1.0-4.0); LYMPHOCYTES % (AUTO) 9 % (12-44); MEAN CORPUSCULAR HEMOGLOBIN 29 PG (25-34); MEAN CORPUSCULAR HGB CONC 33 G/DL (32-36); MEAN CORPUSCULAR VOLUME 88 FL (80-99); MEAN PLATELET VOLUME 11.5 FL (7.4-10.4); MONOCYTES # (AUTO) 0.4 X 10^3 (0.0-1.0); MONOCYTES % (AUTO) 4 % (0-12); NEUTROPHILS # (AUTO) 8.1 X 10^3 (1.8-7.8); NEUTROPHILS % (AUTO) 86 % (42-75); PLATELET COUNT 204 10^3/uL (130-400); RED CELL DISTRIBUTION WIDTH 14.4 % (10.0-14.5); WHITE BLOOD COUNT 9.4 10^3/uL (4.3-11.0)
[2019-09-16 02:07] LABS: BUN/CREATININE RATIO 31; CALCIUM 9.8 MG/DL (8.5-10.1); CARBON DIOXIDE 26 MMOL/L (21-32); CHLORIDE 99 MMOL/L (98-107); CREATININE SERUM 0.55 MG/DL (0.60-1.30); GFR ESTIMATED > 60; GLUCOSE 148 MG/DL (70-105); POTASSIUM 3.7 MMOL/L (3.6-5.0); SODIUM 141 MMOL/L (135-145)
[2019-09-16 02:08] LABS: ALANINE AMINOTRANSFERASE 12 U/L (0-55); ALBUMIN 4.3 GM/DL (3.2-4.5); ALKALINE PHOSPHATASE 88 U/L (40-136); BILIRUBIN,TOTAL 0.3 MG/DL (0.1-1.0); TOTAL PROTEIN 7.9 GM/DL (6.4-8.2)
[2019-09-16 02:10] LABS: NEUTROPHILS % (MANUAL) 80 %
[2019-09-16 02:11] LABS: BAND NEUTROPHILS 2 %; EOSINOPHILS % (MANUAL) 1 %; LYMPHOCYTES % (MANUAL) 7 %; MICROCYTOSIS MARKED; MONOCYTES % (MANUAL) 5 %; REACTIVE LYMPHOCYTES 5 %
[2019-09-16 02:15] LABS: MAGNESIUM 1.8 MG/DL (1.6-2.4)
[2019-09-16] MEDS ORDERED: HOLD METFORMIN - RECEIVED CONTRAST 20 ML VIAL IV SCH (02:15)
[2019-09-16] MEDS ORDERED: CATHETER FLUSH 10 ML SYR IV PRN (02:15)
[2019-09-16] MEDS ORDERED: IOHEXOL 350 MG/ML 100 ML (OMNIPAQUE 350) VIAL IV ONE (02:15)
[2019-09-16] MEDS ORDERED: NS 100 ML (IVPB) BAG IV ONE (02:15)
[2019-09-16] MEDS ORDERED: NS (IVPB) 250 ML IV STA (02:37)
[2019-09-16] MEDS ORDERED: AZITHROMYCIN INJECTION 500 MG in NS (IVPB) 250 ML IV STA (02:37)
[2019-09-16] MEDS ORDERED: cefTRIAXone FOR IV USE 1,000 MG in WATER (STERILE) FOR INJECTION 10 ML IV STA (02:37)
[2019-09-16 03:23] LABS: BACTERIA,URINE NEGATIVE /HPF; BILIRUBIN,URINE NEGATIVE (NEGATIVE); CLARITY,URINE CLEAR; COLOR,URINE YELLOW; GLUCOSE, URINE (UA) NEGATIVE (NEGATIVE); KETONES,URINE NEGATIVE (NEGATIVE); LEUKOCYTE ESTERASE ,URINE NEGATIVE (NEGATIVE); NITRITE,URINE NEGATIVE (NEGATIVE); PH,URINE 7.5 (5-9); PROTEIN,URINE NEGATIVE (NEGATIVE); RBC,URINE 0-2 /HPF
[2019-09-16] MEDS ORDERED: NS IV 1000 ML 1,000 ML IV SCH (04:15)
[2019-09-16] MEDS ORDERED: LACTATED RINGERS 1,000 ML IV ONE ×2 (05:43→07:30)
--- NOTE | 2019-09-16 05:52 | NUR ---
ZAIRE KIRK Sy admitted to room CU11-1, with an admitting diagnosis of PNEUMONIA, SEPSIS, on 09/16/19 from [place] via , accompanied by .ZAIRE KIRK introduced to surroundings, call light, bed controls, phone, TV, temperature control, lights, meal times, smoking policy, visitor policy, side rail policy, bathrooms and showers. Patient Rights given to patient in the handbook. ZAIRE KIRK verbalizes understanding that [facility] is not responsible for the loss or damage to any personal effects or valuables that are kept in the patients posession during their hospitalization. The following Patient Care Plans were discussed with the : Discharge Planning, ,, and . ZAIRE KIRK verbalizes understanding of Interdisciplinary Patient Education. Patient and/or family were informed about the Rapid Response Team and its purpose.
[2019-09-16 06:08] LABS: BASOPHILS % (AUTO) 0 % (0-10); EOSINOPHILS % (AUTO) 0 % (0-10); HEMATOCRIT 32 % (35-52); LYMPHOCYTES # (AUTO) 0.6 X 10^3 (1.0-4.0); LYMPHOCYTES % (AUTO) 4 % (12-44); MEAN CORPUSCULAR HEMOGLOBIN 29 PG (25-34); MEAN CORPUSCULAR HGB CONC 33 G/DL (32-36); MEAN CORPUSCULAR VOLUME 88 FL (80-99); MEAN PLATELET VOLUME 11.9 FL (7.4-10.4); MONOCYTES % (AUTO) 8 % (0-12); NEUTROPHILS # (AUTO) 11.5 X 10^3 (1.8-7.8); NEUTROPHILS % (AUTO) 88 % (42-75); PLATELET COUNT 182 10^3/uL (130-400); RED CELL DISTRIBUTION WIDTH 14.8 % (10.0-14.5); WHITE BLOOD COUNT 13.1 10^3/uL (4.3-11.0)
[2019-09-16 06:10] LABS: HEMOGLOBIN 10.4 G/DL (11.5-16.0)
--- NOTE | 2019-09-16 06:10 | Pulmonary Consultation ---
History of Present Illness History of Present Illness Date Seen by Provider: Sep 16, 2019 Time Seen by Provider: 06:09 Date of Admission History of Present Illness 69yo with hx of tonsil cancer 4yrs ago and currently in remission presented to ED after syncope witnessed by family. PT still follows with [place] oncology. She has been loosing weight and her doctors have her counting calories. CT of head is negative. No prior episodes like this. I am consulted for pulmonary/ICU management. Allergies and Home Medications Allergies Coded Allergies: Penicillins (Verified Allergy, Unknown, 11/24/18) codeine (Verified Allergy, Unknown, 11/24/18) lidocaine (Verified Allergy, Unknown, 11/24/18) oxytetracycline (Verified Allergy, Unknown, 11/24/18) Home Medications Ipratropium/Albuterol Sulfate 3 Ml Ampul.neb, 3 ML INH Q6H PRN for SHORTNESS OF BREATH Prescribed by: AMIRAH SANCHEZ on 11/27/18 1047 Levofloxacin 750 Mg Tablet, 750 MG PO Q48H Prescribed by: AMIRAH SANCHEZ on 11/27/18 1047 Levothyroxine Sodium 125 Mcg Tablet, 125 MCG PO DAILY, (Reported) Ondansetron 4 Mg Tab.rapdis, 4 MG PO Q6H Prescribed by: MODESTO ALCANTARA on 07/24/191816 Past Urqpxdd-Ictklx-Zxxmua Hx Past Med/Social Hx: Reviewed Nursing Past Med/Soc Hx Patient Social History Alcohol Use: Denies Use Recreational Drug Use: No Smoking Status: Never a Smoker 2nd Hand Smoke Exposure: No Recent Foreign Travel: No Contact w/Someone Who Travel: No Recent Infectious Disease Expo: No Recent Hopitalizations: No Physical Abuse: No Sexual Abuse: No Seasonal Allergies Seasonal Allergies: Yes Past Medical History Surgeries: Yes (VEIN STRIPPING, FEEDING TUBE PLACEMENT) Abdominal, Tubal Ligation Respiratory: No Cardiac: No Neurological: No 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 No Pertinent Family Hx Review of Systems Time Seen by Provider: 07:40 Constitutional: Fever, Chills, Weakness, Malaise Eyes: No: Pain, Vision change, Conjunctivae inflammation, Eyelid inflammation, Other, Redness ENT: Nose congestion; No: Ear pain, Ear discharge, Nose pain, Nose discharge, Mouth pain, Mouth swelling, Throat pain, Throat swelling, Other Respiratory: Cough, Shortness of breath, SOB with excertion, Wheezing, Sputum; No: Hemoptysis Cardiovascular: Paroxysmal Noc. Dyspnea; No: Chest Pain, Palpitations, Orthopnea, Edema, Lt Headedness, Other Gastrointestinal: No: Nausea, Vomiting, Abdominal Pain, Diarrhea, Constipation, Melena, Hematochezia, Other Sepsis Event Evaluation Height, Weight, BMI Height: 5'5.00" Weight: 113lbs. 0.0oz. 51.285928du; 15.00 BMI Method:Stated Exam Exam Vital Signs Date Time Temp Pulse Resp B/P (MAP) Pulse Ox O2 Delivery O2 Flow Rate FiO2 09/16/19 05:26 88 09/16/19 04:22 88 18 105/48 98 Nasal Cannula 4.00 09/16/19 03:04 37.7 97 18 123/49 96 Nasal Cannula 4.00 09/16/19 02:00 100 20 120/54 95 Nasal Cannula 4.00 09/16/19 01:22 Nasal Cannula 4.00 91 09/16/19 01:20 38.9 107 20 115/55 (75) 91 Nasal Cannula 4.00 I & O 09/16/19 07:00 Intake Total 1555 ml Balance 1555 ml Height & Weight Height: 5'5.00" Weight: 113lbs. 0.0oz. 51.558019zu; 15.00 BMI Method:Stated General Appearance: Cachetic, Thin, Other (appears chronically ill) HEENT: PERRL/EOMI; No Moist Mucous Membranes Neck: Non Tender, Supple Respiratory: Chest Non Tender, No Accessory Muscle Use, No Respiratory Distress, Decreased Breath Sounds, Rhonci Cardiovascular: Regular Rate, Rhythm, Normal Peripheral Pulses Capillary Refill: Less Than 3 Seconds Peripheral Pulses: 2+ Carotid (R), 2+ Carotid (L), 2+ Radial Pulses (R), 2+ Radial Pulses (L) Extremity: Normal Capillary Refill, Normal Inspection, Normal Range of Motion, Non Tender, No Pedal Edema Neurologic/Psychiatric: No Alert (somnolent but answers questions ); Oriented x3, No 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
[2019-09-16 06:28] LABS: ALANINE AMINOTRANSFERASE 11 U/L (0-55); ALBUMIN 3.3 GM/DL (3.2-4.5); ALKALINE PHOSPHATASE 65 U/L (40-136); BILIRUBIN,TOTAL 0.4 MG/DL (0.1-1.0); BUN/CREATININE RATIO 23; CALCIUM 8.4 MG/DL (8.5-10.1); CARBON DIOXIDE 22 MMOL/L (21-32); CHLORIDE 108 MMOL/L (98-107); CREATININE SERUM 0.71 MG/DL (0.60-1.30); GFR ESTIMATED > 60; GLUCOSE 114 MG/DL (70-105); MAGNESIUM 1.5 MG/DL (1.6-2.4); POTASSIUM 3.7 MMOL/L (3.6-5.0); SODIUM 141 MMOL/L (135-145)
--- NOTE | 2019-09-16 06:30 | Diagnostic Imaging Report ---
INDICATION: Febrile. Shortness of breath. FINDINGS: Portable chest. There are bilateral consolidated infiltrates in the lung bases bilaterally. There is diffuse interstitial lung disease present bilaterally as well. Obstructive pulmonary changes are present. Heart is mildly enlarged. No evidence of pulmonary edema. No pneumothorax or pleural effusion. No bony abnormalities. IMPRESSION: 1. Obstructive interstitial lung disease. 2. Superimposed bilateral consolidated infiltrates in lung bases consistent with pneumonia. Dictated by: Dictated on workstation # [id number]
--- NOTE | 2019-09-16 06:35 | Diagnostic Imaging Report ---
PROCEDURE: CT head without contrast. TECHNIQUE: Multiple contiguous axial images were obtained through the brain without the use of intravenous contrast. Auto Exposure Controls were utilized during the CT exam to meet ALARA standards for radiation dose reduction. INDICATION: Syncope. FINDINGS: Noncontrasted study shows no intracranial hemorrhage. The ventricles and cortical gyral pattern are normal. No mass effect. No extra-axial fluid collection. Basal cisterns are clear. Mastoid air cells are well aerated. No calvarial lesion. IMPRESSION: Negative CT head without contrast. These findings are concordant with the preliminary report. Dictated by: Dictated on workstation # [id number]
[2019-09-16 06:36] LABS: LYMPHOCYTES % (MANUAL) 2 %; MONOCYTES % (MANUAL) 9 %; NEUTROPHILS % (MANUAL) 89 %
[2019-09-16] MEDS ORDERED: RT-ALBUTEROL/IPRATROPIUM 3 ML (DUONEB) VIAL INH PRN (06:45)
--- NOTE | 2019-09-16 06:48 | Diagnostic Imaging Report ---
PROCEDURE: CT angiography of the chest with contrast. TECHNIQUE: Multiple contiguous axial images were obtained through the chest after uneventful bolus administration of intravenous contrast. 3D reconstructed CTA MIP acquisitions were also performed. Auto Exposure Controls were utilized during the CT exam to meet ALARA standards for radiation dose reduction. INDICATION: Shortness of breath with chest pain. FINDINGS: Good opacification of the aorta and pulmonary arteries. Aorta is atherosclerotic without aneurysm. Pulmonary arteries show no filling defects to indicate pulmonary emboli. There are rather dense alveolar infiltrates bilaterally in the lung bases more severe on the left. There are air bronchograms present. There is hyperaeration with chronic interstitial lung disease noted bilaterally. IMPRESSION: Findings consistent with bilateral lower lobe consolidated pneumonia more severe on the left. These findings are concordant with the preliminary report. Dictated by: Dictated on workstation # [id number]
[2019-09-16] MEDS: NS IV 1000 ML 1,000 ML IV SCH ×3 (06:49→19:34)
[2019-09-16] MEDS: CLINDAMYCIN 600 MG/50 ML IVPB 50 ML IV SCH ×3 (07:25→21:20)
[2019-09-16] MEDS: CEFEPIME INJECTION 1,000 MG in WATER (STERILE) FOR INJECTION 10 ML IV SCH ×3 (07:30→21:20)
[2019-09-16] MEDS: PANTOPRAZOLE 40 MG (PROTONIX) VIAL IV SCH (08:46)
[2019-09-16] MEDS ORDERED: DIPH25CA79 PO (09:46)
[2019-09-16] MEDS ORDERED: CHOL200025 PO (09:46)
[2019-09-16] MEDS ORDERED: ASCO-262 PO (09:46)
[2019-09-16] MEDS ORDERED: LEVO100T7 PO (09:50)
--- NOTE | 2019-09-16 09:50 | NUR ---
SPOKE WITH THE PATIENT ABOUT HER MEDICATIONS. SHE LISTED WHAT SHE IS TAKING. I CALLED AND VERIFIED WITH PAT JACOB. PAT JACOB FILLED: 08-24-19 LEVOTHYROXINE 112MCG #30 08-21-19 LEVOTHYROXINE 100MCG #30 SHE STATES THE 112 WAS TOO MUCH SO SHE IS TAKING THE 100MCG ONLY. SHE TAKES THE FOLLOWING OTC: VITAMIN C DAILY VITAMIN D DAILY BENADRYL 2 TABS DAILY (TAKES MAINLY IN THE WINTER TIME)
--- NOTE | 2019-09-16 10:22 | NUR ---
Replaced Pt BP cuff due to being too large for Pt arm with a smaller cuff at 0745. Pt BP reading better since the switch.
[2019-09-16] MEDS: RT-ALBUTEROL/IPRATROPIUM 3 ML (DUONEB) VIAL INH SCH ×4 (10:32→22:50)
[2019-09-16] MEDS ORDERED: ONDANSETRON 4 MG/2 ML (SDV) Z0FRAN IV PRN (12:00)
[2019-09-16] MEDS ORDERED: ACETAMINOPHEN 325 MG TABLET PO PRN (12:00)
[2019-09-16] MEDS ORDERED: MELATONIN 3 MG TABLET PO PRN (12:00)
[2019-09-16] MEDS ORDERED: ANTACID SUSP 30 ML UDC (MYLANTA) PO PRN (12:00)
[2019-09-16] MEDS ORDERED: BISACODYL 10 MG SUPP (DULCOLAX) PR PRN (12:00)
[2019-09-16] MEDS ORDERED: ONDANSETRON 4 MG (ZOFRAN) ORAL DISSOLVE TAB PO PRN (12:00)
[2019-09-16] MEDS ORDERED: POLYETHYLENE GLYCOL 17 GM (MIRALAX) PACK PO PRN (12:00)
[2019-09-16] MEDS ORDERED: SALINE NASAL SPRAY (OCEAN) 45 ML BTL PRN (12:00)
[2019-09-16] MEDS: ENOXAPARIN 30 MG/0.3 ML (LOVENOX) SYR SC SCH (12:33)
--- NOTE | 2019-09-16 13:16 | NUR ---
"RD ASSESSMENT PMHx: hypothyroidism; CA(tonsil) PT INTERACTION: Pt was awake and pleasant during nutrition assessment. Pt states current appetite is good and has been for some time. Note pt is currently NPO, pending results of swallow study. Pt states following a regular diet at home and has some difficulty chewing/swallowing food d/t poor/missing teeth. Pt states no recent issues with n/v/c/d and that her last BM was 09/15. Note pt not currently on bowel regimen per chart review. Pt states recent wt loss, but unsure of amount/timeframe. Note recent 4# wt gain x1mon, per chart review. Upon visual exam, pt appears frail with some visible signs of muscle/fat wasting and a BMI of 17.2. ABNORMAL NUTRITION-RELATED LAB VALUES LOW: Ca 8.4; Mg 1.5; Pro 6.0 HIGH: Cl 108; glu 114 Est. kcal needs: 7694-5891 kcal | 30-35 kcal/kg Est. Pro needs: 56-67 g Pro | 1.2-1.4 g Pro/kg PES STATEMENT: Underweight (NC-3.1) related to inadequate energy intake as evidenced by BMI 17.2 | unintentional weight loss INTERVENTION: Note pt currently NPO, pending swallow study. Would recommend advancing diet as medically able, pending results of swallow study. Will continue to follow and reassess as pt needs and status change. MONITOR/EVALUATE: PO Intake; Plan of Care; Hydration Status; Weight Status; Lab Values Trey Vázquez, MS, RD, LD"
--- NOTE | 2019-09-16 13:48 | Occupational Therapy Eval ---
OT Evaluation-General/PLF Medical Diagnosis Admission Date Sep 16, 2019 at 03:46 Medical Diagnosis: pneumonia/sepsis Onset Date: Sep 16, 2019 Therapy Diagnosis Therapy Diagnosis: debility Height/Weight Height (Feet): 5 Height (Inches): 5.00 Weight (Pounds): 113 Weight (Ounces): 0.0 Precautions Precautions/Isolations: Fall Prevention, Standard Precautions Referral Physician: Shubham Medical History Pertinent Medical History: Hypothroidism Additional Medical History tonsil cancer, hyperglycemia. Current History Pt had syncope at home. Was admitted with pneumonia Reviewed History: Yes Social History Current Living Status: Other Family ADL-Prior Level of Function SCALE: Activities may be completed with or without assistive devices. 2-Jymdpqhqft-jxlqmhm completes the activity by him/herself with no assistance from a helper. 5-Set-up or Clean-up Assistance-helper sets up or cleans up; patient completes activity. [place] assists only prior to or following the activity. 4-Supervision or Touching Assistance-helper provides verbal cues and/or touching/steadying and/or contact guard assistance as patient completes activity. Assistance may be provided throughout the activity or intermittently. 3-Partial/Moderate Assistance-helper does LESS THAN HALF the effort. [place] lifts, holds or supports trunk or limbs, but provides less than half the effort. 2-Substantial/Maximal Assistance-helper does MORE THAN HALF the effort. [place] lifts or holds trunk or limbs and provides more than half the effort. 8-Ivdjklmxo-ezldkc does ALL the effort. Patient does none of the effort to complete the activity. Or, the assistance of 2 or more helpers is required for the patient to complete the activity. If activity was not attempted, code reason: 7-Patient Refused. 9-Not Applicable-not attempted and the patient did not perform the activity before the current illness, exacerbation or injury. 10-Not Attempted due to Environmental Limitations-(lack of equipment, weather restraints, etc.). 88-Not Attempted due to Medical Conditions or Safety Concerns. ADL PLOF Comments Pt reports being independent with self care and mobility. Self Care: Independent Drive Self: No OT Current Status Subjective Pt resting in bed, agrees to therapy. Pt has no c/o pain. Mental Status/Objective Patient Orientation: Person, Place, Situation Attachments: IV Current Glasses/Contacts: Yes Hand Dominance: Right Upper Extremity ROM Grossly WFL Upper Extremity Coordination Fair Upper Extremity Sensation Pt reports numbness/tingling in fingers secondary to previous chemo Upper Extremity Strength Decreased bilaterally ADL-Treatment ADL-Current Pt supine to sit without assist. Pt participated in UE assessment while seated EOB, no LOB. Pt demonstrated ability to doff/don socks with SBA. Sit to stand with supervision. Pt declined need to use BSC at this time. Pt performed sit to supine without assist. Resting in bed with needs met after session. On/Off Footwear (QC): 4 Education OT Patient Education: Rehab process Teaching Recipient: Patient Teaching Methods: Discussion Response to Teaching: Verbalize Understanding OT Intermediate Goals Intermediate Goals Time Frame: Sep 23, 2019 Oral Hygiene (QC): 6 Toileting Hygiene (QC): 6 Shower/Bathe Self (QC): 6 Upper Body Dressing (QC): 6 Lower Body Dressing (QC): 6 On/Off Footwear (QC): 6 Additional Goals: 1-Demonstrate ADL Tasks, 2-Verbalize Understanding, 3- ImproveStrength/Wes 1=Demonstrate adherence to instructed precautions during ADL tasks. 2=Patient will verbalize/demonstrate understanding of assistive devices/modifications for ADL. 3=Patient will improve strength/tolerance for activity to enable patient to perform ADL's. OT Education/Plan Problem List/Assessment Assessment: Decreased Activ Tolerance, Decreased UE Strength, Dependent Transfers, Impaired I ADL's Pt demonstrates decreased strength, activity tolerance, and ADL functioning. Pt to benefit from short term skilled OT intervention for ADL training, transfers, strengthening, and safety education to increase level of function and allow safe discharge. Discharge Recommendations Plan/Recommendations: Continue POC Treatment Plan/Plan of Care Treatment,Training & Education: Yes Patient would benefit from OT for education, treatment and training to promote independence in ADL's, mobility, safety and/or upper extremity function for ADL's. Plan of Care: ADL Retraining, Functional Mobility, UE Funct Exercise/Act Treatment Duration: Sep 23, 2019 Frequency: 5 times per week Estimated Hrs Per Day: .25 hour per day Rehab Potential: Fair Time/GCodes Start Time: 13:15 Stop Time: 13:30 Total Time Billed (hr/min): 15 Billed Treatment Time 1 visit, ROBERTO(15minutes) RICHAR EDWARDS OT Sep 16, 2019 13:48
[2019-09-16] MEDS: HYDROCORTISONE 100 MG/2 ML (Solu-CORTEF) VIAL IV SCH ×2 (14:01→21:20)
--- NOTE | 2019-09-16 14:16 | Physical Therapy Evaluation ---
PT Evaluation-General Medical Diagnosis Admission Date Sep 16, 2019 at 03:46 Medical Diagnosis: pneumonia/sepsis Onset Date: Sep 16, 2019 Therapy Diagnosis Therapy Diagnosis: impaired mobility, strength, endurance Height/Weight Height (Feet): 5 Height (Inches): 5.00 Weight (Pounds): 113 Weight (Ounces): 0.0 Precautions Precautions/Isolations: Fall Prevention, Standard Precautions Weight Bear Status Right Lower Extremity: Right Weight Bearing/Tolerated Left Lower Extremity: Left Weight Bearing/Tolerated Referral Physician: Shubham Reason for Referral: Evaluation/Treatment Medical History Pertinent Medical History: Hypothroidism Additional Medical History Tonsil cancer Past Medical History Surgeries: Yes (VEIN STRIPPING, FEEDING TUBE PLACEMENT) Abdominal, Tubal Ligation Respiratory: No Cardiac: No Neurological: No 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 8-Xbskcrigdt-ssmcnhs completes the activity by him/herself with no assistance from a helper. 5-Set-up or Clean-up Assistance-helper sets up or cleans up; patient completes activity. [place] assists only prior to or following the activity. 4-Supervision or Touching Assistance-helper provides verbal cues and/or touching/steadying and/or contact guard assistance as patient completes activity. Assistance may be provided throughout the activity or intermittently. 3-Partial/Moderate Assistance-helper does LESS THAN HALF the effort. [place] lifts, holds or supports trunk or limbs, but provides less than half the effort. 2-Substantial/Maximal Assistance-helper does MORE THAN HALF the effort. [place] lifts or holds trunk or limbs and provides more than half the effort. 6-Ggduzstli-htmxmx does ALL the effort. Patient does none of the effort to complete the activity. Or, the assistance of 2 or more helpers is required for the patient to complete the activity. If activity was not attempted, code reason: 7-Patient Refused. 9-Not Applicable-not attempted and the patient did not perform the activity before the current illness, exacerbation or injury. 10-Not Attempted due to Environmental Limitations-(lack of equipment, weather restraints, etc.). 88-Not Attempted due to Medical Conditions or Safety Concerns. Bed Mobility: 6 Transfers (B,C,W/C): 6 Gait: 6 Stairs: 6 Indoor Mobility (Ambulation): Independent Stairs: Independent Prior Devices Use: Walker Patient broke her right leg in June and started using a walker at that point. She was not using one prior to that. PT Evaluation-Current Subjective Patient is agreeable to therapy and reports no pain at this time. Pt/Family Goals to be independent at home Objective Patient Orientation: Person, Place, Time, Situation ROM/Strength ROM Lower Extremities WFL BLE Strength Lower Extremities 4 to 4+ / 5 BLE Integumentary/Posture Integumentary See nursing notes. Bowel Incontinence: No Bladder Incontinence: No Sensory Hearing: Functional Hand Dominance: Right Sensation Right Lower Extremit: Intact Sensation Left Lower Extremity: Intact Transfers Roll Left to Right (QC): 6 Lying to Sitting/Side of Bed(Q: 6 Sit to Stand (QC): 6 Chair/Prq-dz-Cusqn Xfer(QC): 6 Gait Does the Patient Walk?: Yes Mode of Locomotion: Walk Anticipated Mode of Locomotion: Walk Walk 10 feet (QC): 4 Walk 50 ft with 2 Turns(QC): 4 Walk 150 ft (QC): 4 Distance: 300' Gait Assistive Device: FWW Comments/Gait Description Patient is steady during ambulation. Patient had one self corrected LOB at beginning of ambulation because she tried to fix her hair. No SOB Wheelchair Training Does the Pt Use a Wheelchair?: No Balance Sitting Static: Normal Sitting Dynamic: Normal Standing Static: Normal Standing Dynamic: Good Treatment Seated BLE exercises x15 reps: ankle pumps, LAQ, and marching. Assessment/Needs Patient is steady during ambulation, walked 300' CGA for safety. Patient ceased walking due to fatigue but recovered quickly when sat down and able to perform BLE seated exercises. Rehab Potential: Fair PT Alf Goals Alf Goals PT Alf Goals Time Frame: Sep 23, 2019 Roll Left & Right (QC): 6 Sit to Lying (QC): 6 Lying-Sitting on Side/Bed(QC): 6 Sit to Stand (QC): 6 Chair/Inw-ey-Nxtxl Xfer(QC): 6 Toilet Transfer (QC): 6 Does the Patient Walk: Yes Walk 10 feet (QC): 6 Walk 50ft with 2 Turns (QC): 6 Walk 150 ft (QC): 6 PT Plan Problem List Problem List: Activity Tolerance, Functional Strength, Safety, Balance, Gait, Transfer Treatment/Plan Treatment Plan: Continue Plan of Care Treatment Plan: Education, Functional Activity Wes, Functional Strength, Gait, Safety, Therapeutic Exercise, Transfers Treatment Duration: Sep 23, 2019 Frequency: 6 times per week Estimated Hrs Per Day: .25 hour per day Patient and/or Family Agrees t: Yes Safety Risks/Education Patient Education: Gait Training, Transfer Techniques, Correct Positioning, Safety Issues Teaching Recipient: Patient Teaching Methods: Demonstration, Discussion Response to Teaching: Reinforcement Needed Discharge Recommendations Plan Patient will perform bed mobility and transfer training, balance and endurance training, functional strengthening, stair training, gait training, and education, to improve functional mobility and independence at home. Therapy Discharge Recommendati: Home & Family Time/GCodes Time In: 1339 Time Out: 1354 Total Billed Treatment Time: 15 Total Billed Treatment 1 visit EVM (15 minutes) DEREK LEA PT Sep 16, 2019 14:16
--- NOTE | 2019-09-16 15:01 | History & Physical-Hospitalist ---
History of Present Illness HPI/Chief Complaint Lita Harris is a 69-year-old female with past medical history of tonsil cancer currently in remission, hypothyroidism, who presented with shortness of breath. She is a poor historian. She reports that she noticed that she is not feeling well in the middle the night. She reportedly had a syncopal episode when naseem yates next her bed was witnessed by her son. She reports fevers and chills. She says that she has been having trouble with swallowing food and choking. She reports that she is had trouble with maintaining her weight and has been working to gain weight. She reports that she does not eat enough because of difficulty swallowing. She denies any chest pain. She denies any abdominal pain. She denies any nausea or vomiting. She denies any diarrhea or constipation. She denies any dysuria. 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 Patients Allergies have been reviewed. Allergies Allergies Coded Allergies Penicillins (Verified Allergy, Unknown, 11/24/18) codeine (Verified Allergy, Unknown, 11/24/18) lidocaine (Verified Allergy, Unknown, 11/24/18) oxytetracycline (Verified Allergy, Unknown, 11/24/18) Past Bekypqu-Ycqbsb-Jobqbf Hx Past Med/Social Hx: Reviewed Nursing Past Med/Soc Hx Patient Social History Alcohol Use: Denies Use Recreational Drug Use: No Smoking Status: Never a Smoker 2nd Hand Smoke Exposure: No Recent Foreign Travel: No Contact w/other who traveled: No Recent Hopitalizations: No Recent Infectious Disease Expo: No Seasonal Allergies Seasonal Allergies: Yes Past Medical History Surgeries: Abdominal, Tubal Ligation Reproductive: No Tubal Ligation Endocrine: Hypothyroidsim Cancer: Oral Did You Recieve Any Treatments: Yes What Type of Treatment Did You: Chemotherapy, Radiation, Surgical Intervention History of Blood Disorders: No Family History Patient reports no known family medical history. No Pertinent Family Hx Review of Systems Constitutional: chills, fever EENTM: no symptoms reported Respiratory: short of breath Cardiovascular: no symptoms reported Gastrointestinal: no symptoms reported Genitourinary: no symptoms reported Musculoskeletal: no symptoms reported Skin: no symptoms reported Psychiatric/Neurological: No Symptoms Reported Physical Exam Physical Exam Vital Signs Vital Signs - First Documented 09/16/19 09/16/19 01:20 01:22 Temp 38.9 Pulse 107 Resp 20 B/P (MAP) 115/55 (75) Pulse Ox 91 O2 Delivery Nasal Cannula O2 Flow Rate 4.00 FiO2 91 Capillary Refill : Less Than 3 Seconds Height, Weight, BMI Height: 5'5.00" Weight: 113lbs. 0.0oz. 51.767548ps; 15.00 BMI Method:Stated General Appearance: No Apparent Distress, Chronically ill, Cachetic HEENT: PERRL/EOMI, Pharynx Normal Neck: Normal Inspection, Supple Respiratory: Lungs Clear, Normal Breath Sounds, No Respiratory Distress Cardiovascular: Regular Rate, Rhythm, No Edema, No Murmur Gastrointestinal: Normal Bowel Sounds, Non Tender, Soft Extremity: Normal Inspection, Non Tender, No Pedal Edema Neurologic/Psychiatric: Alert, No Motor/Sensory Deficits, Normal Mood/Affect Skin: Normal Color, Warm/Dry Results Results/Procedures Labs Laboratory Tests 09/16/19 01:27 09/16/19 05:49 Patient resulted labs reviewed. Imaging: Reviewed Imaging Report Assessment/Plan Admission Diagnosis Severe sepsis Admission Status: Inpatient Order (span 2 midnights) Reason for Inpatient Admission: Severe sepsis requiring IV antibiotics Assessment and Plan Severe sepsis Multifocal pneumonia Likely aspiration pneumonia Syncope SIRS+ with fever and tachycardia X-ray and CT scan revealed bibasilar pneumonia Lactic acid elevated greater than 2 CT chest without pulmonary embolism Blood pressures low this morning Syncopal episode likely due to orthostatic hypotension CT head normal Continue IV fluids Repeat lactic acid improved Continue cefepime and clindamycin for pneumonia Pulmonology consulted, appreciate assistance Speech therapy consulted for swallow volume aeration Nothing by mouth until swallow evaluated Hypomagnesemia Continue to monitor and replace as needed Hypothyroidism Continue levothyroxine Severe protein calorie malnutrition Nutrition consulted Ensure ordered DVT prophylaxis: Lovenox Diagnosis/Problems Diagnosis/Problems (1) Severe sepsis Status: Acute (2) Sepsis due to pneumonia Status: Acute (3) Lactic acidosis Status: Acute (4) Dysphagia Status: Chronic (5) Severe protein-calorie malnutrition Status: Chronic (6) Hypomagnesemia Status: Acute (7) Hypothyroidism Status: Chronic Clinical Quality Measures DVT/VTE Risk/Contraindication: Risk Factor Score Per Nursin RFS Level Per Nursing on Admit: 2=Moderate BOB BENEDICT MD Sep 16, 2019 15:01
--- NOTE | 2019-09-16 18:28 | NUR ---
asked Pt about if she took oxycodone, pt stated that she was prescribed it when she broke her leg in june but did not pick it up due to not needing it.
[2019-09-16] MEDS ORDERED: AZITHROMYCIN 500 MG/NS 250 ML IVPB IV SCH ×2 (21:00)
[2019-09-16] MEDS ORDERED: cefTRIAXone 1,000 MG/SWFI 10 ML IV PUSH IV SCH ×2 (21:00)
[2019-09-16] MEDS: DOCUSATE SODIUM 100 MG (COLACE) CAP PO SCH (21:19)
[2019-09-16] MEDS: SENNOSIDES 8.6 MG (SENOKOT) TAB PO SCH (21:19)
[2019-09-16] MEDS: guaiFENesin (MUCINEX) 600 MG TAB PO SCH (21:19)
[2019-09-17] VITALS (11 sets, daily range): BP systolic 103–153; BP diastolic 47–138
[2019-09-17] MEDS: RT-ALBUTEROL/IPRATROPIUM 3 ML (DUONEB) VIAL INH SCH ×5 (02:19→23:44)
[2019-09-17] MEDS: NS IV 1000 ML 1,000 ML IV SCH ×2 (02:38→17:39)
[2019-09-17 03:58] LABS: BASOPHILS % (AUTO) 0 % (0-10); EOSINOPHILS % (AUTO) 0 % (0-10); HEMATOCRIT 31 % (35-52); HEMOGLOBIN 9.7 G/DL (11.5-16.0); LYMPHOCYTES # (AUTO) 0.3 X 10^3 (1.0-4.0); LYMPHOCYTES % (AUTO) 3 % (12-44); MEAN CORPUSCULAR HEMOGLOBIN 28 PG (25-34); MEAN CORPUSCULAR HGB CONC 32 G/DL (32-36); MEAN CORPUSCULAR VOLUME 88 FL (80-99); MEAN PLATELET VOLUME 11.7 FL (7.4-10.4); MONOCYTES # (AUTO) 0.1 X 10^3 (0.0-1.0); MONOCYTES % (AUTO) 1 % (0-12); NEUTROPHILS # (AUTO) 8.9 X 10^3 (1.8-7.8); NEUTROPHILS % (AUTO) 95 % (42-75); PLATELET COUNT 167 10^3/uL (130-400); RED CELL DISTRIBUTION WIDTH 15.3 % (10.0-14.5); WHITE BLOOD COUNT 9.4 10^3/uL (4.3-11.0)
[2019-09-17 04:30] LABS: ALANINE AMINOTRANSFERASE 8 U/L (0-55); ALBUMIN 3.3 GM/DL (3.2-4.5); ALKALINE PHOSPHATASE 57 U/L (40-136); BILIRUBIN,TOTAL 0.4 MG/DL (0.1-1.0); BUN/CREATININE RATIO 11; CALCIUM 8.5 MG/DL (8.5-10.1); CARBON DIOXIDE 20 MMOL/L (21-32); CHLORIDE 115 MMOL/L (98-107); CREATININE SERUM 0.66 MG/DL (0.60-1.30); GFR ESTIMATED > 60; GLUCOSE 155 MG/DL (70-105); MAGNESIUM 1.6 MG/DL (1.6-2.4); PHOSPHORUS 2.6 MG/DL (2.3-4.7); SODIUM 145 MMOL/L (135-145); TOTAL PROTEIN 6.1 GM/DL (6.4-8.2)
[2019-09-17] MEDS: KCL 20 MEQ TAB (K-DUR) PO SCH (05:04)
[2019-09-17] MEDS: POTASSIUM CL 10MEQ/50ML IVPB 50 ML IV SCH (05:04)
[2019-09-17] MEDS: MAGNESIUM 1 GM/100 ML IVPB 100 ML IV SCH ×3 (05:04→05:43)
[2019-09-17] MEDS: HYDROCORTISONE 100 MG/2 ML (Solu-CORTEF) VIAL IV SCH ×3 (05:42→21:07)
[2019-09-17] MEDS: CLINDAMYCIN 600 MG/50 ML IVPB 50 ML IV SCH ×3 (05:42→21:40)
[2019-09-17] MEDS: CEFEPIME INJECTION 1,000 MG in WATER (STERILE) FOR INJECTION 10 ML IV SCH ×3 (05:42→21:15)
--- NOTE | 2019-09-17 06:44 | Pulmonary Progress Note ---
Subjective Time Seen by a Provider: 06:40 Subjective/Events-last exam No complications noted. Pt is currently on RA Sepsis Event Evaluation Height, Weight, BMI Height: 5'5.00" Weight: 113lbs. 0.0oz. 51.988252kf; 15.00 BMI Method:Stated Focused Exam Lactate Level 09/16/19 03:27: Lactic Acid Level 1.77 09/16/19 05:49: Lactic Acid Level 2.18*H 09/16/19 07:55: Lactic Acid Level 1.79 Time of Focused Exam: 02:18 Exam Exam Vital Signs Date Time Temp Pulse Resp B/P (MAP) Pulse Ox O2 Delivery O2 Flow Rate FiO2 09/17/19 05:00 96 19 123/57 (79) 97 Room Air 09/17/19 04:00 100 14 109/47 (67) 97 Room Air 09/17/19 04:00 95 Room Air 09/17/19 03:00 98 22 94 Room Air 09/17/19 02:19 97 Room Air 09/17/19 02:00 90 21 145/79 (101) 97 Room Air 09/17/19 01:00 92 19 150/80 (103) 98 Room Air 09/17/19 01:00 93 09/17/19 00:00 37.4 09/17/19 00:00 90 15 103/56 (72) 97 Room Air 09/17/19 00:00 95 Room Air 09/16/19 23:00 98 15 104/56 (72) 98 Room Air 09/16/19 22:49 97 Room Air 09/16/19 22:00 96 25 119/87 (98) 95 Room Air 09/16/19 21:00 99 20 138/67 (90) 96 Room Air 09/16/19 20:00 95 Room Air 09/16/19 20:00 37.3 09/16/19 20:00 89 20 98/54 (69) 95 Room Air 09/16/19 19:10 95 Room Air 09/16/19 19:00 88 20 126/60 (82) 96 Room Air 09/16/19 19:00 91 09/16/19 18:00 82 20 116/56 (76) 98 Nasal Cannula 2.00 09/16/19 17:00 87 20 121/60 (80) 93 Nasal Cannula 2.00 09/16/19 17:00 87 20 121/60 (80) 93 Nasal Cannula 2.00 09/16/19 16:06 94 Room Air 09/16/19 16:00 37.5 09/16/19 16:00 90 18 91/52 (65) 97 Nasal Cannula 2.00 09/16/19 14:31 97 Room Air 09/16/19 14:00 81 16 123/61 (81) 93 Nasal Cannula 2.00 09/16/19 12:45 78 09/16/19 12:23 94 Room Air 09/16/19 12:00 82 34 126/62 (83) 94 Nasal Cannula 2.00 09/16/19 12:00 37.1 09/16/19 10:35 Room Air 09/16/19 10:32 98 Nasal Cannula 2.00 09/16/19 10:00 76 14 127/73 (91) 98 Nasal Cannula 2.00 09/16/19 09:00 75 17 120/60 (80) 98 Nasal Cannula 2.00 09/16/19 08:27 36.3 09/16/19 08:00 97 Nasal Cannula 2.00 91 09/16/19 08:00 75 14 124/75 (91) 96 Nasal Cannula 2.00 09/16/19 07:00 74 14 100/51 (67) 98 Nasal Cannula 2.00 09/16/19 06:45 78 13 78/43 (55) 97 Nasal Cannula 2.00 09/16/19 06:42 99 Nasal Cannula 2.00 09/16/19 06:41 74 I & O 09/17/19 07:00 Intake Total 2550 ml Output Total 3100 ml Balance -550 ml Height & Weight Height: 5'5.00" Weight: 113lbs. 0.0oz. 51.800613rn; 15.00 BMI Method:Stated General Appearance: No Apparent Distress, Chronically ill, Cachetic HEENT: PERRL/EOMI, Pharynx Normal Neck: Normal Inspection, Supple Respiratory: Lungs Clear, Normal Breath Sounds, No Respiratory Distress Cardiovascular: Regular Rate, Rhythm, No Edema, No Murmur Capillary Refill: Less Than 3 Seconds Peripheral Pulses: 2+ Carotid (R), 2+ Carotid (L), 2+ Radial Pulses (R), 2+ Radial Pulses (L) Extremity: Normal Inspection, Non Tender, No Pedal Edema Neurologic/Psychiatric: Alert, No Motor/Sensory Deficits, Normal Mood/Affect Skin: Normal Color, Warm/Dry Results Lab Laboratory Tests 09/16/19 01:27 09/16/19 05:49 09/17/19 03:45 Assessment/Plan Assessment/Plan Pneumonia -probable aspiration -Change Abx to Cefepime and Clindmycin -andino cultures -Swallow study is pending -Check urine strep and legionella ag -Duonebs -CT of chest - reviewed Severe sepsis - improving Hypoxia -Oxygen Anemia -Monitor Debility/malnutrition DENISE OLMOS DO Sep 17, 2019 06:44
--- NOTE | 2019-09-17 07:22 | Diagnostic Imaging Report ---
EXAMINATION: Chest 1 view HISTORY: Follow-up pneumonia. Sepsis. COMPARISON: 09/16/2019. FINDINGS: There is interval improvement in aeration in the right lung base. Continued opacities are seen in the left lung base. Stable cardiac silhouette. No large pleural effusion or pneumothorax. No acute osseous abnormalities. IMPRESSION: 1. Improved aeration in the right lung base, which may represent improving atelectasis or infection. Stable opacities are seen in the left lung base, likely representing a similar process. Dictated by: Dictated on workstation # [id number]
[2019-09-17] MEDS: guaiFENesin (MUCINEX) 600 MG TAB PO SCH ×2 (07:59→21:09)
[2019-09-17] MEDS: PANTOPRAZOLE 40 MG (PROTONIX) VIAL IV SCH (08:00)
[2019-09-17] MEDS: DOCUSATE SODIUM 100 MG (COLACE) CAP PO SCH ×2 (08:00→21:09)
[2019-09-17] MEDS: SENNOSIDES 8.6 MG (SENOKOT) TAB PO SCH ×2 (08:00→21:08)
[2019-09-17] MEDS ORDERED: POTASSIUM PHOSPHATE INJ 30 MM in NS (IVPB) 250 ML IV ONE (09:00)
--- NOTE | 2019-09-17 09:40 | NUR ---
PT TRANSFERRED TO ROOM 418 VIA W/ STAFF/PERSONAL BELONGINGS. REPORT GIVEN TO KRISTY GOMEZ. NO QUESTIONS/CONCERNS VOICED.
--- NOTE | 2019-09-17 10:00 | NUR ---
RESTING QUIETLY. DENIES PAIN. SALINE LOCK INTACT LEFT AC. IV ALSO INTACT RIGHT FOREARM. DAUGHTER AT BEDSIDE.
--- NOTE | 2019-09-17 10:27 | ST Dysphagia Evaluation ---
Speech Evaluation-General Medical Diagnosis pneumonia/sepsis Onset Date: Sep 16, 2019 Therapy Diagnosis Therapy Diagnosis: Oropharyngeal Dysphagia Precautions Precautions: Aspiration Referral Referring Physician: Dr. Saleh Reason for Referral: Evaluation/Treatment Medical History Pertinent Medical History: Hypothroidism Reviewed History: Yes Social History Current Living Status: Other Family Speech PLF/Current-Dysphagia Prior Level of Function Patient reported not having any problems with swallowing prior to hospital admission. Subjective Patient was alert and cooperative for all evaluation tasks. Patient reported that she had tonsil cancer within the last year and has lost some sensation in her throat and does not produce as much saliva prior to cancer treatment. Patient was sitting upright in her bed for the duration of evaluation tasks. Cognitive Status Patient Orientation: Person, Place, Time, Eyes Open, Situation Oral Motor Skills Dentition: Natural (Patient had many missing teeth), Tumbled, Stained Current Food Consistancy: Regular Ability to Follow Directions: Good Oral Expression Ability: No Impairment Voice Voice Phonatory-Based Quality: Normal Voice Pitch: Normal Voice Loudness: Normal Face Facial Symmetry: Symmetrical Oral-Facial Assessment Oral-Facial Dentition: Normal (Patient demonstrated missing teeth both top and bottom) Labial Seal Description: Normal Smile: Normal Lingual Protrusion: Normal Lingual ROM: Normal Lingual Strength: Normal Voluntary Cough: Yes Can Clear Throat Volitionally: Yes Productive Cough: Yes Productive Throat Clear: Yes Dysphagia Evaluation Consistencies Presented: Thin Liquid, Eleva Thick Liquid, Pureed Funct. Velo/Pharyngeal Symptom: Cough After Swallow Dietary Recommendations: Pureed Liquid Recommendations: Eleva Consistancy Swallowing Precautions: Alternate Liquids/Solids, Decreased Bolus 1/2 Tsp, Liquids from Cup, Liquids from Spoon, Small Bites and Sips, Sitting Upright 90 Degrees Dysphagia Evaluation Summary Patient was admitted to the ICU floor s/p shortness of breath. Patient was presented with thin liquid via 1/2 tsp spoon and demonstrated an immediate cough. Patient was then presented with nectar thickened liquid via 1/2 tsp spoon and no s/s of penetration of aspiration were noted. Patient was then presented with pureed consistency via 1/2 tsp spoon and no s/s of penetration or aspiration were noted. Patient reported that increased sensation with nectar thickened liquids was noticeable and easier to manipulate during the swallow. It is recommended that the patient be on a DYSPHAGIA I diet with nectar thickened liquids. Additionally, patient will utilize compensatory strategies of sitting upright and alternating solids and liquids during mealtime to increase safe and effective swallow. Barriers to Learning Current medical status Speech Short Term Goals Short Term Goals Short Term Goals 1. Patient will tolerate least restrictive diet without s/s of aspiration at 90%. 2. Patient will utilize compensatory strategies as trained at 90% with minimal cues. Speech Retirement Goals Retirement Goals Patient will maintain adequate nutrition/hydration via safe and effective swallow function. Speech-Plan Patient/Family Goals Patient/Family Goals: Patient reported that she wishes to eat without having any problems swallowing and gain weight. Treatment Plan Speech Therapy Treatment Plan: Continue Plan of Care Treatment Duration: Sep 25, 2019 Frequency: 5 times per week Estimated Hrs Per Day: .25 hour per day Rehab Potential: Fair Barriers to Learning: Current medical status Pt/Family Agrees to Plan: Yes Safety Risks/Education Teaching Recipient: Patient, Family Teaching Methods: Demonstration, Discussion Response to Teaching: Verbalize Understanding, Return Demonstration Education Topics Provided: Patient was educated on compensatory strategies to utilize during mealtime. Time Speech Therapy Time In: 08:15 Speech Therapy Time Out: 08:30 Total Billed Time: 15 Billed Treatment Time 1NIDIA BETHANIA ST Sep 17, 2019 10:27
--- NOTE | 2019-09-17 10:37 | Physical Therapy Progress Note ---
Therapy Progress Note Patient no longer needs skilled therapy. Patient is up IND. JACKIE MCDANIEL PT Sep 17, 2019 10:37
--- NOTE | 2019-09-17 11:10 | Occupational Ther Daily Note ---
OT Current Status-Daily Note Subjective Pt seen in bed, reclined. Pt's daughter present. Pt states she would like to shower this AM. Pt denies pain or excess weakness this date. Mental Status/Objective Patient Orientation: Person, Place, Situation, Normal For Age Attachments: IV ADL-Treatment Therapy Code Descriptions/Definitions Functional Daisy Measure: 0=Not Assessed/NA 4=Minimal Assistance 1=Total Assistance 5=Supervision or Setup 2=Maximal Assistance 6=Modified Daisy 3=Moderate Assistance 7=Complete IndependenceSCALE: Activities may be completed with or without assistive devices. 3-Tmzddhsyyj-rkmgyyl completes the activity by him/herself with no assistance from a helper. 5-Set-up or Clean-up Assistance-helper sets up or cleans up; patient completes activity. [place] assists only prior to or following the activity. 4-Supervision or Touching Assistance-helper provides verbal cues and/or touching/steadying and/or contact guard assistance as patient completes activity. Assistance may be provided throughout the activity or intermittently. 3-Partial/Moderate Assistance-helper does LESS THAN HALF the effort. [place] lifts, holds or supports trunk or limbs, but provides less than half the effort. 2-Substantial/Maximal Assistance-helper does MORE THAN HALF the effort. [place] lifts or holds trunk or limbs and provides more than half the effort. 7-[place]-djunce does ALL the effort. Patient does none of the effort to c omplete the activity. Or, the assistance of 2 or more helpers is required for the patient to complete the activity. If activity was not attempted, code reason: 7-Patient Refused. 9-Not Applicable-not attempted and the patient did not perform the activity before the current illness, exacerbation or injury. 10-Not Attempted due to Environmental Limitations-(lack of equipment, weather restraints, etc.). 88-Not Attempted due to Medical Conditions or Safety Concerns. Upper Body Dressing (QC): 5 Lower Body Dressing (QC): 5 On/Off Footwear: 6 Other Treatment Pt's daughter present start of session. Pt seen in bed, bed mob to EOB with IND. Pt s/u for showering task (waterproof protection placed over bilateral IV's) with education to attempt to keep R arm out of water during active IV. Pt's daughter states plans to leave room. Pt walks to shower with IND, manages IV pole. 4th floor notified of telemetry doffing pre-shower. Pt shower transfer with IND, doffs UB clothing with s/u due to IV management. Pt agrees to wear same clothes as she did not bring others to hospital. Pt doffs LB dressing with IND. Pt educated on use of brief as pt requested pad but has no clean undergarments. Pt s/u for showering task, water ensured good temperature. Pt states she will not need assist for showering. Pt notified to pull cord when completed, dry off, and wait for assist for transfer from shower. Pt nods in understanding. political aide notified pre shower and post transfer to shower of pt's position, states understanding of needed assist from shower. Pt does not require OT services as she has demonstrated knowledge of safety and ROM/ strength to complete self-care tasks and is at prior level. Education OT Patient Education: Correct positioning, Progress toward Goal/Update tx plan, Safety issues Teaching Recipient: Patient Teaching Methods: Demonstration, Discussion Response to Teaching: Verbalize Understanding, Return Demonstration OT Snf Goals Dispatch Machine Runner Goals Time Frame: Sep 23, 2019 Oral Hygiene (QC): 6 Toileting Hygiene (QC): 6 Shower/Bathe Self (QC): 6 Upper Body Dressing (QC): 6 Lower Body Dressing (QC): 6 On/Off Footwear (QC): 6 Additional Goals: 1-Demonstrate ADL Tasks, 2-Verbalize Understanding, 3- ImproveStrength/Wes 1=Demonstrate adherence to instructed precautions during ADL tasks. 2=Patient will verbalize/demonstrate understanding of assistive devices/modifications for ADL. 3=Patient will improve strength/tolerance for activity to enable patient to perform ADL's. OT Education/Plan Problem List/Assessment Assessment: No Skilled OT Needs ID'd Pt demonstrates decreased strength, activity tolerance, and ADL functioning. Pt to benefit from short term skilled OT intervention for ADL training, transfers, strengthening, and safety education to increase level of function and allow safe discharge. Discharge Recommendations Plan/Recommendations: Discharge/Goals Met Therapy Discharge Recommendati: Home & Family Equpiment Recommendations-D/C: None Treatment Plan/Plan of Care Treatment,Training & Education: Yes D/c pt due to PLOF attained. Plan of Care: OTHER (d/c) Treatment Duration: Sep 23, 2019 Frequency: 5 times per week Estimated Hrs Per Day: .25 hour per day Rehab Potential: Fair Time/GCodes Start Time: 10:00 Stop Time: 10:13 Total Time Billed (hr/min): 13 Billed Treatment Time 1, ADL (13) MADDISON CHANDLER OTR Sep 17, 2019 11:10
--- NOTE | 2019-09-17 11:30 | NUR ---
STOOL OB OBTAINED. UP IN ROOM WITH ASST. TOLERATES WELL.
[2019-09-17] MEDS: ENOXAPARIN 30 MG/0.3 ML (LOVENOX) SYR SC SCH (12:06)
--- NOTE | 2019-09-17 12:06 | NUR ---
STOOL OB NEGATIVE. LOVENOX GIVEN ORDERED.
--- NOTE | 2019-09-17 13:00 | NUR ---
COMPLAIN DYSPHAGIA 1 DIET TOO THICK AND HARD TO SWALLOW. AFTER DISCUSSING WITH YAEL SPEECH THERAPIST, ORDER PUT IN FOR SOUP AND BROTH FOR EACH MEAL SO SHE CAN THIN FOODS DOWN WITH BROTH.
--- NOTE | 2019-09-17 14:44 | Progress Note - Hospitalist ---
Subjective HPI/CC On Admission Date Seen by Provider: Sep 17, 2019 Time Seen by Provider: 09:00 Lita Harris is a 69-year-old female with past medical history of tonsil cancer currently in remission, hypothyroidism, who presented with shortness of breath. She is a poor historian. She reports that she noticed that she is not feeling well in the middle the night. She reportedly had a syncopal episode when standing next her bed was witnessed by her son. She reports fevers and chills. She says that she has been having trouble with swallowing food and choking. She reports that she is had trouble with maintaining her weight and has been working to gain weight. She reports that she does not eat enough because of difficulty swallowing. She denies any chest pain. She denies any abdominal pain. She denies any nausea or vomiting. She denies any diarrhea or constipation. She denies any dysuria. Subjective/Events-last exam She reports feeling better today. She denies fevers and chills. She denies d yspnea. She has no other complaints or concerns. Focused Exam Lactate Level 09/16/19 03:27: Lactic Acid Level 1.77 09/16/19 05:49: Lactic Acid Level 2.18*H 09/16/19 07:55: Lactic Acid Level 1.79 Time of Focused Exam: 02:18 Objective Exam Vital Signs Vital Signs Date Time Temp Pulse Resp B/P (MAP) Pulse Ox O2 Delivery O2 Flow Rate FiO2 09/17/19 12:44 110 09/17/19 12:00 37.0 18 152/78 (102) 97 Room Air 09/16/19 22:00 09/16/19 08:00 91 Capillary Refill : Less Than 3 Seconds General Appearance: No Apparent Distress, Cachetic Neck: Normal Inspection, Supple Respiratory: Lungs Clear, Normal Breath Sounds, No Respiratory Distress Cardiovascular: Regular Rate, Rhythm, No Edema, No Murmur Gastrointestinal: Normal Bowel Sounds, Non Tender, Soft Extremity: Normal Inspection, Non Tender, No Pedal Edema Neurologic/Psychiatric: Alert, Oriented x3, No Motor/Sensory Deficits, Normal Mood/Affect Skin: Normal Color, Warm/Dry Results/Procedures Lab Laboratory Tests 09/17/19 03:45 Patient resulted labs reviewed. Imaging: Reviewed Imaging Report Assessment/Plan Assessment and Plan Assess & Plan/Chief Complaint Multifocal pneumonia Likely aspiration pneumonia Continue cefepime and clindamycin for pneumonia Pulmonology consulted, appreciate assistance Dysphagia Swallow evaluation recommending dysphagia diet with nectar thick liquids Hypothyroidism Continue levothyroxine Severe protein calorie malnutrition Nutrition consulted Ensure ordered DVT prophylaxis: Lovenox Severe sepsis, resolved Lactic acidosis, resolved Hypomagnesemia, resolved Syncope, resolved Diagnosis/Problems Diagnosis/Problems (1) Aspiration pneumonia Status: Acute (2) Severe sepsis Status: Resolved Resolution Date/Time: 09/17/19 @ 14:43 (3) Sepsis due to pneumonia Status: Resolved Resolution Date/Time: 09/17/19 @ 14:43 (4) Lactic acidosis Status: Resolved Resolution Date/Time: 09/17/19 @ 14:43 (5) Dysphagia Status: Chronic (6) Severe protein-calorie malnutrition Status: Chronic (7) Hypomagnesemia Status: Resolved Resolution Date/Time: 09/17/19 @ 14:43 (8) Hypothyroidism Status: Chronic Clinical Quality Measures DVT/VTE Risk/Contraindication: Risk Factor Score Per Nursin RFS Level Per Nursing on Admit: 2=Moderate BOB BENEDICT MD Sep 17, 2019 14:44
[2019-09-17] MEDS ORDERED: SALIVA STIMULANT MOUTH SPRAY (BIOTENE) 1.5 OZ MM PRN (17:45)
--- NOTE | 2019-09-17 18:00 | NUR ---
COMPLAIN VERY DRY MOUTH AND BIOTIN ORDERED. PATIENT STATES IT HELPED A LOT. DAUGHTER TO SPEND THE NIGHT.
[2019-09-18] VITALS: BP 134/63
[2019-09-18] MEDS: RT-ALBUTEROL/IPRATROPIUM 3 ML (DUONEB) VIAL INH SCH ×7 (02:39→20:31)
[2019-09-18 04:00] VITALS: BP 128/61
[2019-09-18 04:39] LABS: BASOPHILS % (AUTO) 0 % (0-10); EOSINOPHILS % (AUTO) 0 % (0-10); HEMATOCRIT 29 % (35-52); HEMOGLOBIN 9.5 G/DL (11.5-16.0); LYMPHOCYTES # (AUTO) 0.4 X 10^3 (1.0-4.0); LYMPHOCYTES % (AUTO) 6 % (12-44); MEAN CORPUSCULAR HEMOGLOBIN 29 PG (25-34); MEAN CORPUSCULAR HGB CONC 33 G/DL (32-36); MEAN CORPUSCULAR VOLUME 88 FL (80-99); MEAN PLATELET VOLUME 11.8 FL (7.4-10.4); MONOCYTES # (AUTO) 0.4 X 10^3 (0.0-1.0); MONOCYTES % (AUTO) 6 % (0-12); NEUTROPHILS # (AUTO) 6.1 X 10^3 (1.8-7.8); NEUTROPHILS % (AUTO) 89 % (42-75); PLATELET COUNT 158 10^3/uL (130-400); RED CELL DISTRIBUTION WIDTH 15.3 % (10.0-14.5); WHITE BLOOD COUNT 6.8 10^3/uL (4.3-11.0)
[2019-09-18 04:59] LABS: BUN/CREATININE RATIO 10; CALCIUM 8.5 MG/DL (8.5-10.1); CARBON DIOXIDE 22 MMOL/L (21-32); CHLORIDE 113 MMOL/L (98-107); CREATININE SERUM 0.58 MG/DL (0.60-1.30); GFR ESTIMATED > 60; GLUCOSE 140 MG/DL (70-105); MAGNESIUM 1.8 MG/DL (1.6-2.4); PHOSPHORUS 2.4 MG/DL (2.3-4.7); SODIUM 146 MMOL/L (135-145)
[2019-09-18 05:13] LABS: POTASSIUM 2.5 MMOL/L (3.6-5.0)
--- NOTE | 2019-09-18 05:20 | NUR ---
LAB NOTIFIED THIS RN OF CRITICAL K OF 2.5. SHE REMAINS ON ICU K PROTOCOL ON OCT. DR RESENDIZ DIP PAINTER LAYO BENEDICT NOTIFIED.
[2019-09-18] MEDS: POTASSIUM CL 10MEQ/50ML IVPB 50 ML IV SCH ×8 (05:23→11:53)
--- NOTE | 2019-09-18 05:36 | Pulmonary Progress Note ---
Subjective Time Seen by a Provider: 05:35 Sepsis Event Evaluation Height, Weight, BMI Height: 5'5.00" Weight: 113lbs. 0.0oz. 51.280203ay; 15.00 BMI Method:Stated Focused Exam Lactate Level 09/16/19 03:27: Lactic Acid Level 1.77 09/16/19 05:49: Lactic Acid Level 2.18*H 09/16/19 07:55: Lactic Acid Level 1.79 Time of Focused Exam: 02:18 Exam Exam Vital Signs Date Time Temp Pulse Resp B/P (MAP) Pulse Ox O2 Delivery O2 Flow Rate FiO2 09/18/19 02:39 90 Room Air 09/18/19 01:00 100 09/18/19 00:00 36.3 105 19 134/63 (86) 84 Room Air 09/17/19 23:43 95 Room Air 09/17/19 21:00 Room Air 09/17/19 20:00 36.8 98 18 140/69 (92) 96 Room Air 09/17/19 19:00 90 09/17/19 16:00 36.9 111 16 127/68 (87) 96 Room Air 09/17/19 15:00 97 Room Air 09/17/19 12:44 110 09/17/19 12:00 37.0 107 18 152/78 (102) 97 Room Air 09/17/19 11:05 98 Room Air 09/17/19 09:00 105 18 144/74 (97) 99 Room Air 09/17/19 08:39 Room Air 09/17/19 08:00 111 118/76 (90) 97 Room Air 09/17/19 07:40 36.9 09/17/19 07:00 112 22 153/138 (143) 96 Room Air 09/17/19 06:50 94 Room Air 09/17/19 06:45 93 I & O 09/18/19 07:00 Intake Total 4450 ml Output Total 3200 ml Balance 1250 ml Height & Weight Height: 5'5.00" Weight: 113lbs. 0.0oz. 51.659967ci; 15.00 BMI Method:Stated General Appearance: No Apparent Distress, Cachetic HEENT: PERRL/EOMI, Pharynx Normal Neck: Normal Inspection, Supple Respiratory: Lungs Clear, Normal Breath Sounds, No Respiratory Distress Cardiovascular: Regular Rate, Rhythm, No Edema, No Murmur Capillary Refill: Less Than 3 Seconds Peripheral Pulses: 2+ Carotid (R), 2+ Carotid (L), 2+ Radial Pulses (R), 2+ Radial Pulses (L) Extremity: Normal Inspection, Non Tender, No Pedal Edema Neurologic/Psychiatric: Alert, Oriented x3, No Motor/Sensory Deficits, Normal Mood/Affect Skin: Normal Color, Warm/Dry Results Lab Laboratory Tests 09/16/19 05:49 09/17/19 03:45 09/18/19 04:30 Assessment/Plan Assessment/Plan Pneumonia -probable aspiration -Change Abx to Cefepime and Clindmycin -andino cultures -Swallow study is pending -Check urine strep and legionella ag -Duonebs -CT of chest - reviewed Replace Severe sepsis - improving Hypoxia -Oxygen Anemia -Monitor DENISE OLMOS DO Sep 18, 2019 05:36
[2019-09-18] MEDS ORDERED: MAGNESIUM 1 GM/100 ML IVPB 100 ML IV ONE (05:45)
[2019-09-18] MEDS: MAGNESIUM 1 GM/100 ML IVPB 100 ML IV SCH ×3 (06:00→13:14)
[2019-09-18] MEDS: KCL 20 MEQ TAB (K-DUR) PO SCH (06:00)
[2019-09-18] MEDS: CLINDAMYCIN 600 MG/50 ML IVPB 50 ML IV SCH ×2 (06:23→14:30)
[2019-09-18] MEDS: CEFEPIME INJECTION 1,000 MG in WATER (STERILE) FOR INJECTION 10 ML IV SCH ×2 (06:24→14:30)
[2019-09-18] MEDS: HYDROCORTISONE 100 MG/2 ML (Solu-CORTEF) VIAL IV SCH ×3 (06:40→21:41)
[2019-09-18] MEDS ORDERED: POTASSIUM PHOSPHATE INJ 30 MM in NS (IVPB) 250 ML IV NR (07:00)
--- NOTE | 2019-09-18 07:25 | Diagnostic Imaging Report ---
INDICATION: Lower respiratory infection Portable chest 3:39 AM Heart size and pulmonary vascularity are normal. There is mild interstitial prominence. No consolidating infiltrates. There are no effusions or pneumothoraces. IMPRESSION: Mild interstitial fibrosis. No change compared to the previous day. Dictated by: Dictated on workstation # [id number]
[2019-09-18 08:00] VITALS: BP 141/65
[2019-09-18] MEDS: guaiFENesin (MUCINEX) 600 MG TAB PO SCH ×2 (08:18→21:41)
[2019-09-18] MEDS: PANTOPRAZOLE 40 MG (PROTONIX) VIAL IV SCH (08:18)
--- NOTE | 2019-09-18 08:52 | Speech Therapy Daily Note ---
Speech Daily Progress Note Subjective Date Seen by Provider: Sep 18, 2019 Time Seen by Provider: 15:00 Patient was alert, pleasant, and cooperative for all therapy tasks. Patient reported that she is feeling much better and requested to upgrade her diet in order to eat toast and dip it into her coffee. Patient is aware of her deficits and agreed to utilize compensatory strategies for diet upgrade. Objective Patient was presented with thin liquid consistency via straw and no s/s of penetration and aspiration were noted. Patient will be upgraded to DYSPHAGIA III with thin liquids. Assessment Assessment Current Status: Good Progress Treatment Plan Continue Plan of Care Speech Short Term Goals Short Term Goals Short Term Goals 1. Patient will tolerate least restrictive diet without s/s of aspiration at 90%. 2. Patient will utilize compensatory strategies as trained at 90% with minimal cues. Speech Ground Crew Lines Person Goals [facility] Goals Patient will maintain adequate nutrition/hydration via safe and effective swallow function. Speech-Plan Patient/Family Goals Patient/Family Goals: Patient reported that she wishes to gain weight through oral intake. Treatment Plan Speech Therapy Treatment Plan: Continue Plan of Care Patient is upgraded to DYSPHAGIA III diet with thin liquids. ST notified the patients nurseKayode of the updated treatment plan and the need for assistance in ordering appropriate foods and supplemental liquids to moisten foods during meal times. Treatment Duration: Sep 25, 2019 Frequency: 5 times per week Estimated Hrs Per Day: .25 hour per day Rehab Potential: Fair Barriers to Learning: Current medical status Pt/Family Agrees to Plan: Yes Safety Risks/Education Teaching Recipient: Patient, Family Teaching Methods: Demonstration, Discussion Response to Teaching: Verbalize Understanding Education Topics Provided: Patient verbalized understanding of utilizing compensatory strategies and moistening vacuum drum drier operator consistency of foods with liquids during mealtime. Time Speech Therapy Time In: 08:25 Speech Therapy Time Out: 08:40 Total Billed Time: 15 Billed Treatment Time 1NIDIA BETH[address] ST Sep 18, 2019 08:52
[2019-09-18] MEDS: DOCUSATE SODIUM 100 MG (COLACE) CAP PO SCH ×2 (09:44→23:52)
[2019-09-18] MEDS: SENNOSIDES 8.6 MG (SENOKOT) TAB PO SCH ×2 (09:44→23:52)
[2019-09-18] MEDS ORDERED: KCL 20 MEQ POWDER FOR ORAL SOLUTION PO NR (11:30)
[2019-09-18 12:00] VITALS: BP 133/72
[2019-09-18] MEDS: ENOXAPARIN 30 MG/0.3 ML (LOVENOX) SYR SC SCH (13:18)
--- NOTE | 2019-09-18 14:42 | Progress Note - Hospitalist ---
Subjective HPI/CC On Admission Date Seen by Provider: Sep 18, 2019 Time Seen by Provider: 11:15 Lita Harris is a 69-year-old female with past medical history of tonsil cancer currently in remission, hypothyroidism, who presented with shortness of breath. She is a poor historian. She reports that she noticed that she is not feeling well in the middle the night. She reportedly had a syncopal episode when standing next her bed was witnessed by her son. She reports fevers and chills. She says that she has been having trouble with swallowing food and choking. She reports that she is had trouble with maintaining her weight and has been working to gain weight. She reports that she does not eat enough because of difficulty swallowing. She denies any chest pain. She denies any abdominal pain. She denies any nausea or vomiting. She denies any diarrhea or constipation. She denies any dysuria. Subjective/Events-last exam she is feeling well this morning. She has been eating and drinking. Her diet has been advanced. She denies any pain. She denies any trouble breathing. She has no other complaints or concerns. Focused Exam Lactate Level 09/16/19 03:27: Lactic Acid Level 1.77 09/16/19 05:49: Lactic Acid Level 2.18*H 09/16/19 07:55: Lactic Acid Level 1.79 Time of Focused Exam: 02:18 Objective Exam Vital Signs Vital Signs Date Time Temp Pulse Resp B/P (MAP) Pulse Ox O2 Delivery O2 Flow Rate FiO2 09/18/19 13:00 100 09/18/19 12:17 94 Room Air 09/18/19 12:00 36.8 20 133/72 (92) 09/16/19 22:00 09/16/19 08:00 91 Capillary Refill : Less Than 3 Seconds General Appearance: No Apparent Distress, Cachetic HEENT: PERRL/EOMI, Pharynx Normal Neck: Normal Inspection, Supple Respiratory: Lungs Clear, Normal Breath Sounds, No Respiratory Distress Cardiovascular: Regular Rate, Rhythm, No Edema, No Murmur Gastrointestinal: Normal Bowel Sounds, Non Tender, Soft Extremity: Normal Inspection, Non Tender, No Pedal Edema Neurologic/Psychiatric: Alert, Oriented x3, No Motor/Sensory Deficits, Normal Mood/Affect Skin: Normal Color, Warm/Dry Results/Procedures Lab Laboratory Tests 09/18/19 04:30 Patient resulted labs reviewed. Imaging: Reviewed Imaging Report Assessment/Plan Assessment and Plan Assess & Plan/Chief Complaint Aspiration pneumonia Transition to oral Clindamycin Pulmonology consulted, appreciate assistance Hypokalemia Potassium 2.5 this morning Replacing with oral and IV potassium Continue to monitor and replace as needed Dysphagia advance to general diet per speech therapy Hypothyroidism Continue levothyroxine Severe protein calorie malnutrition Nutrition consulted Ensure ordered DVT prophylaxis: Lovenox Severe sepsis, resolved Lactic acidosis, resolved Hypomagnesemia, resolved Syncope, resolved Diagnosis/Problems Diagnosis/Problems (1) Aspiration pneumonia Status: Acute (2) Severe sepsis Status: Resolved Resolution Date/Time: 09/17/19 @ 14:43 (3) Sepsis due to pneumonia Status: Resolved Resolution Date/Time: 09/17/19 @ 14:43 (4) Lactic acidosis Status: Resolved Resolution Date/Time: 09/17/19 @ 14:43 (5) Dysphagia Status: Chronic (6) Severe protein-calorie malnutrition Status: Chronic (7) Hypomagnesemia Status: Resolved Resolution Date/Time: 09/17/19 @ 14:43 (8) Hypothyroidism Status: Chronic Clinical Quality Measures DVT/VTE Risk/Contraindication: Risk Factor Score Per Nursin RFS Level Per Nursing on Admit: 2=Moderate BOB BENEDICT MD Sep 18, 2019 14:42
[2019-09-18] MEDS ORDERED: CLINDAMYCIN 150 MG (CLEOCIN) CAP PO SCH (14:45)
[2019-09-18 16:27] VITALS: BP 133/62
[2019-09-18] MEDS: NS IV 1000 ML 1,000 ML IV SCH (18:13)
[2019-09-18] MEDS: FERROUS SULF 325 MG (IRON) TAB PO SCH (18:13)
[2019-09-18 19:52] VITALS: BP 140/65
[2019-09-18] MEDS: CLINDAMYCIN 150 MG (CLEOCIN) CAP PO SCH (21:41)
[2019-09-18] MEDS ORDERED: KCL 20 MEQ POWDER FOR ORAL SOLUTION PO ONE (22:00)
[2019-09-19 00:10] VITALS: BP 167/78
[2019-09-19] MEDS: RT-ALBUTEROL/IPRATROPIUM 3 ML (DUONEB) VIAL INH SCH ×3 (02:41→10:21)
[2019-09-19 04:40] VITALS: BP 138/53
[2019-09-19 05:10] LABS: BASOPHILS % (AUTO) 0 % (0-10); EOSINOPHILS % (AUTO) 0 % (0-10); HEMATOCRIT 30 % (35-52); HEMOGLOBIN 9.7 G/DL (11.5-16.0); LYMPHOCYTES # (AUTO) 0.5 X 10^3 (1.0-4.0); LYMPHOCYTES % (AUTO) 7 % (12-44); MEAN CORPUSCULAR HEMOGLOBIN 29 PG (25-34); MEAN CORPUSCULAR HGB CONC 32 G/DL (32-36); MEAN CORPUSCULAR VOLUME 89 FL (80-99); MEAN PLATELET VOLUME 12.3 FL (7.4-10.4); MONOCYTES # (AUTO) 0.4 X 10^3 (0.0-1.0); MONOCYTES % (AUTO) 6 % (0-12); NEUTROPHILS # (AUTO) 6.3 X 10^3 (1.8-7.8); NEUTROPHILS % (AUTO) 88 % (42-75); PLATELET COUNT 151 10^3/uL (130-400); RED CELL DISTRIBUTION WIDTH 15.7 % (10.0-14.5); WHITE BLOOD COUNT 7.2 10^3/uL (4.3-11.0)
[2019-09-19 05:44] LABS: BUN/CREATININE RATIO 17; CALCIUM 8.4 MG/DL (8.5-10.1); CARBON DIOXIDE 25 MMOL/L (21-32); CHLORIDE 111 MMOL/L (98-107); CREATININE SERUM 0.53 MG/DL (0.60-1.30); GFR ESTIMATED > 60; GLUCOSE 128 MG/DL (70-105); PHOSPHORUS 2.1 MG/DL (2.3-4.7); POTASSIUM 3.3 MMOL/L (3.6-5.0); SODIUM 145 MMOL/L (135-145)
[2019-09-19] MEDS: MAGNESIUM 1 GM/100 ML IVPB 100 ML IV SCH (05:49)
[2019-09-19] MEDS ORDERED: PANTOPRAZOLE 40 MG (PROTONIX) TAB PO SCH (06:30)
[2019-09-19] MEDS: CLINDAMYCIN 150 MG (CLEOCIN) CAP PO SCH ×2 (06:53→12:29)
[2019-09-19] MEDS: FERROUS SULF 325 MG (IRON) TAB PO SCH ×2 (06:54→12:29)
--- NOTE | 2019-09-19 06:54 | Pulmonary Progress Note ---
Subjective Time Seen by a Provider: 06:52 Sepsis Event Evaluation Height, Weight, BMI Height: 5'5.00" Weight: 113lbs. 0.0oz. 51.143866gv; 15.00 BMI Method:Stated Focused Exam Lactate Level 09/16/19 07:55: Lactic Acid Level 1.79 Time of Focused Exam: 02:18 Exam Exam Vital Signs Date Time Temp Pulse Resp B/P (MAP) Pulse Ox O2 Delivery O2 Flow Rate FiO2 09/19/19 04:40 36.6 107 18 138/53 (81) 95 Room Air 09/19/19 02:41 91 Room Air 09/19/19 01:01 95 09/19/19 00:10 37.4 93 18 167/78 (107) 95 Room Air 09/18/19 20:31 95 Room Air 09/18/19 20:10 Room Air 09/18/19 19:52 37.4 83 17 140/65 (90) 95 Room Air 09/18/19 19:00 88 09/18/19 16:27 36.8 92 16 133/62 (85) 95 Room Air 09/18/19 15:01 92 Room Air 09/18/19 13:00 100 09/18/19 12:17 94 Room Air 09/18/19 12:00 36.8 94 20 133/72 (92) 95 Room Air 09/18/19 09:00 Room Air 09/18/19 08:00 36.1 110 20 141/65 (90) 94 Room Air 09/18/19 07:46 94 Room Air 09/18/19 07:00 91 I & O 09/19/19 07:00 Intake Total 1860 ml Output Total 700 ml Balance 1160 ml Height & Weight Height: 5'5.00" Weight: 113lbs. 0.0oz. 51.452154ep; 15.00 BMI Method:Stated General Appearance: No Apparent Distress, Cachetic HEENT: PERRL/EOMI, Pharynx Normal Neck: Normal Inspection, Supple Respiratory: Lungs Clear, Normal Breath Sounds, No Respiratory Distress Cardiovascular: Regular Rate, Rhythm, No Edema, No Murmur Capillary Refill: Less Than 3 Seconds Peripheral Pulses: 2+ Carotid (R), 2+ Carotid (L), 2+ Radial Pulses (R), 2+ Radial Pulses (L) Extremity: Normal Inspection, Non Tender, No Pedal Edema Neurologic/Psychiatric: Alert, Oriented x3, No Motor/Sensory Deficits, Normal Mood/Affect Skin: Normal Color, Warm/Dry Results Lab Laboratory Tests 09/18/19 04:30 09/18/19 17:06 09/19/19 04:45 09/19/19 04:48 Assessment/Plan Assessment/Plan Pneumonia -probable aspiration - Clindmycin -andino cultures -Check urine strep and legionella ag -Duonebs -CT of chest - reviewed Dysphagia -Advanced to full diet per speech Hypoxia -Oxygen Anemia -Monitor DENISE OLMOS DO Sep 19, 2019 06:54
[2019-09-19] MEDS: KCL 20 MEQ TAB (K-DUR) PO SCH (07:27)
[2019-09-19] MEDS: POTASSIUM CL 10MEQ/50ML IVPB 50 ML IV SCH ×5 (07:27→11:04)
--- NOTE | 2019-09-19 07:31 | Diagnostic Imaging Report ---
INDICATION: Pneumonia, sepsis. TECHNIQUE: Single view chest 3:32 AM. CORRELATION STUDY: 09/18/2019 FINDINGS: Lung marrero remain hyperinflated with prominent interstitial markings. However, overall appear improved in their aeration with less interstitial prominence. This may reflect diminished edema. No definitive focal infiltrate. May be small effusions. Some parenchymal densities lung apices left greater than right. Heart size and mediastinum are relatively stable. Vasculature appears less congested. IMPRESSION: 1. Largely chronic changes about the lung parenchyma. However interstitial prominence. Vasculature overall appears slightly improved likely owing to some decreased edema. Dictated by: Dictated on workstation # [id number]
[2019-09-19] MEDS ORDERED: POTASSIUM PHOSPHATE INJ 15 MM in NS (IVPB) 250 ML IV ONE (07:59)
[2019-09-19 08:00] VITALS: BP 175/90
[2019-09-19] MEDS: SENNOSIDES 8.6 MG (SENOKOT) TAB PO SCH (08:44)
[2019-09-19] MEDS: DOCUSATE SODIUM 100 MG (COLACE) CAP PO SCH (08:44)
[2019-09-19] MEDS: guaiFENesin (MUCINEX) 600 MG TAB PO SCH (08:44)
[2019-09-19] MEDS ORDERED: FERR325T18 PO (10:14)
[2019-09-19] MEDS ORDERED: CLIN150C17 PO (10:14)
[2019-09-19 12:00] VITALS: BP 171/77
--- NOTE | 2019-09-19 12:04 | Discharge Summary ---
Discharge Summary Hospital Course Was the Problem List Reviewed?: Yes Problems/Dx: (1) Aspiration pneumonia Status: Acute Qualifiers: Qualified Codes: J69.0 - Pneumonitis due to inhalation of food and vomit (2) Severe sepsis Status: Resolved (3) Sepsis due to pneumonia Status: Resolved (4) Lactic acidosis Status: Resolved (5) Dysphagia Status: Chronic (6) Severe protein-calorie malnutrition Status: Chronic (7) Hypomagnesemia Status: Resolved (8) Hypothyroidism Status: Chronic Hospital Course Date of Admission: Sep 16, 2019 at 03:46 Admission Diagnosis : severe sepsis due to aspiration pneumonia Family Physician/Provider: Reji Shah MD Date of Discharge: 09/19/19 Discharge Diagnosis: Severe sepsis due to aspiration pneumonia Hospital Course: Lita Harris is a 69-year-old female with past medical history of tonsil cancer who presented with a syncopal episode and was admitted with severe sepsis due to aspiration pneumonia. Her syncope was thought to be due to orthostatic hypotension and dehydration. She was initially treated with IV antibiotics and she responded appropriately. She was transitioned to oral clindamycin and will complete a course of antibiotics as an outpatient. She was evaluated by speech therapy for a swallow evaluation and initially required nectar thickened liquids but her dysphagia improved and she was advanced to thin liquids. She was recommended to follow up as an outpatient for an upper endoscopy to evaluate her dysphagia with associated weight loss. She was treated for severe protein calorie malnutrition with oral supplements (ensure). She should follow-up with Dr. Shah in 1-2 weeks. Labs and Pending Lab Test: Laboratory Tests 09/18/19 17:06: Potassium Level 3.8 09/19/19 04:45: Potassium Level 3.3L, Sodium Level 145, Chloride Level 111H, Carbon Dioxide Level 25, Anion Gap 9, Blood Urea Nitrogen 9, Creatinine 0.53L, Estimat Kasey merular Filtration Rate > 60, BUN/Creatinine Ratio 17, Glucose Level 128H, Calcium Level 8.4L, Phosphorus Level 2.1L, Magnesium Level 2.0 09/19/19 04:48: White Blood Count 7.2, Red Blood Count 3.40L, Hemoglobin 9.7L, Hematocrit 30L, Mean Corpuscular Volume 89, Mean Corpuscular Hemoglobin 29, Mean Corpuscular Hemoglobin Concent 32, Red Cell Distribution Width 15.7H, Platelet Count 151, Mean Platelet Volume 12.3H, Neutrophils (%) (Auto) 88H, Lymphocytes (%) (Auto) 7L, Monocytes (%) (Auto) 6, Eosinophils (%) (Auto) 0, Basophils (%) (Auto) 0, Neutrophils # (Auto) 6.3, Lymphocytes # (Auto) 0.5L, Monocytes # (Auto) 0.4, Eosinophils # (Auto) 0.0, Basophils # (Auto) 0.0 Microbiology 09/16/19 Blood Culture - Preliminary, Resulted Staph, Coag Neg ([employer]) 09/16/19 Influenza Types A,B Antigen (CADEN) - Final, Complete Home Meds Active Ferrous Sulfate 325 Mg Tablet 325 Mg PO TIDWM 30 Days Clindamycin HCl 150 Mg Capsule 300 Mg PO Q8HR 2 Days Reported Levothyroxine Sodium 100 Mcg Tablet 100 Mcg PO DAILY Benadryl (Diphenhydramine HCl) 25 Mg Capsule 50 Mg PO DAILY Vitamin D3 (Cholecalciferol (Vitamin D3)) 2,000 Unit Tablet 2,000 Unit PO DAILY Vitamin C (Ascorbate Calcium) 500 Mg Tablet 500 Mg PO DAILY Assessment/Pt Instructions take medications as prescribed. Complete her course of antibiotics even if you're feeling better. Follow-up with Dr. Shah in 1-2 weeks. Return to the hospital with worsening shortness of breath, fevers, or if you feel like you're getting worse. Discharge Planning: <30 minutes discharge planning Discharge Instructions Discharge Diet: No Restrictions Activity as Tolerated: Yes Pneumonia Vaccine Order Indica: Yes Discharge Physical Examination Vital Signs Vital Signs Date Time Temp Pulse Resp B/P (MAP) Pulse Ox O2 Delivery O2 Flow Rate FiO2 09/19/19 10:22 93 Room Air 09/19/19 08:00 37.3 97 16 175/90 (118) 09/16/19 22:00 09/16/19 08:00 91 General Appearance: No Apparent Distress, Cachetic HEENT: PERRL/EOMI, Pharynx Normal Respiratory: Lungs Clear, Normal Breath Sounds, No Respiratory Distress Cardiovascular: Regular Rate, Rhythm, No Edema, No Murmur Gastrointestinal: Normal Bowel Sounds, Non Tender, Soft Skin: Normal Color, Warm/Dry Neurologic/Psychiatric: Alert, Oriented x3, No Motor/Sensory Deficits, Normal Mood/Affect Allergies: Coded Allergies: Penicillins (Verified Allergy, Unknown, 4/1/19) codeine (Verified Allergy, Unknown, 11/24/18) lidocaine (Verified Allergy, Unknown, 11/24/18) oxytetracycline (Verified Allergy, Unknown, 11/24/18) Copy Copies To 1: REJI SHAH MD Discharge Summary Date of Admission Sep 16, 2019 at 03:46 Date of Discharge Discharge Date: Sep 19, 2019 Discharge Time: 12:03 Admission Diagnosis Severe sepsis Discharge Diagnosis severe sepsis due to aspiration pneumonia (1) Aspiration pneumonia Status: Acute Qualifiers: Qualified Codes: J69.0 - Pneumonitis due to inhalation of food and vomit (2) Severe sepsis Status: Resolved (3) Sepsis due to pneumonia Status: Resolved (4) Lactic acidosis Status: Resolved (5) Dysphagia Status: Chronic (6) Severe protein-calorie malnutrition Status: Chronic (7) Hypomagnesemia Status: Resolved (8) Hypothyroidism Status: Chronic Clinical Quality Measures DVT/VTE Risk/Contraindication: Risk Factor Score Per Nursin RFS Level Per Nursing on Admit: 2=Moderate BOB BENEDICT MD Sep 19, 2019 12:04
[2019-09-19 13:00] VITALS: BP 171/77
--- NOTE | 2019-09-19 13:00 | NUR ---
ZAIRE IKRK demonstrates understanding of discharge instructions and accurately returns instructions upon questioning. Copy of Post-Discharge Instructions given to PT. ZAIRE KIRK is able to manage continuing needs after discharge. Patients belongings returned to PT. Patient discharged from [facility] on 09/19/19 at 1300. ZAIRE KIRK left floor via W/C, accompanied by STAFF AND GRANDSON PER AUTO.
== END 2019-09-19 13:00 | disposition home or self-care (01) | DRG 177 ==
LOC: EDUNIT# 01:19 → ER FS 01:21 → ICU 03:46 → 4TH 09-17 09:40
PROVIDERS: ADMIT Internal Medicine; ATTEND Internal Medicine
DX: J69.0 Pneumonitis due to inhalation of food and vomit (principal); R65.20 Severe sepsis without septic shock; A41.9 Sepsis, unspecified organism; E43 Unspecified severe protein-calorie malnutrition; R09.02 Hypoxemia; R13.10 Dysphagia, unspecified; E83.42 Hypomagnesemia; E87.6 Hypokalemia; E86.0 Dehydration; I95.1 Orthostatic hypotension; D64.9 Anemia, unspecified; R63.4 Abnormal weight loss; E03.9 Hypothyroidism, unspecified; J30.2 Other seasonal allergic rhinitis; R53.1 Weakness; Z85.89 Personal history of malignant neoplasm of other organs and systems; Z92.21 Personal history of antineoplastic chemotherapy; Z92.3 Personal history of irradiation
CPT/HCPCS: 36415; 70450; 71045; 71275; 80048; 80053; 81000; 82274; 82728; 82805; 83540; 83605; 83735; 83880; 84100; 84132; 84484; 85007; 85025; 85027; 86141; 87040; 87449; 87804; 87899; 93005; 93041; 94640; 94664; 94760

== ENCOUNTER → 2019-10-01 | Outpatient (CLI) | payer MEDICARE, MEDICAID ==
[~2019-10-01] MED LIST changes: +ASCO-262 PO; +CHOL200025 PO; +CLIN150C17 PO; +DIPH25CA79 PO; +FERR325T18 PO; +LEVO100T7 PO
--- NOTE | 2019-10-01 09:58 | Diagnostic Imaging Report ---
INDICATION: Fracture of the right ankle, follow-up. TIME OF EXAM: 8:35 AM Comparison is made with prior radiograph from 08/31/2019. FINDINGS: Healing fracture of the distal fibula is again noted. Fracture line remains partially visible. No significant displacement or angulation is seen. Ankle mortise is maintained. Talar dome is smooth. There is generalized demineralization. IMPRESSION: Continued healing distal fibular fracture show normal alignment. The fracture line remains partially visible. Dictated by: Dictated on workstation # [id number]
== END ==
LOC: RAD FS 08:32
PROVIDERS: ATTEND Nurse Practitioner
DX: S82.831D Other fracture of upper and lower end of right fibula, subsequent encounter for closed fracture with routine healing (principal)
CPT/HCPCS: 73610

== ENCOUNTER 2019-11-10 12:05 | Outpatient (RCR) | payer MEDICARE, MEDICAID | END 2020-02-08 | disposition home or self-care (01) | PROVIDERS: ATTEND Surgery | DX: R13.10 Dysphagia, unspecified (principal); J69.0 Pneumonitis due to inhalation of food and vomit ==

== ENCOUNTER 2021-08-22 16:23 | Emergency (ER) | payer MEDICARE, MEDICAID ==
[~2021-08-22 16:23] MED LIST changes: -CLIN150C17 PO; +CLIN150C20 PO
--- OUTSIDE RECORDS SUMMARY | 2021-08-22 16:28 | XMS REPORT | Clinical Summary ---
Author Author [facility] Organization [facility] Address Unknown Phone Unavailable Care Team Providers Care Dietary Director Name Role Phone Juanis Bhakta MD Unavailable Outpatient, Radiologist Unavailable Unavailable Source Comments Some departments are not documenting in the electronic medical record. If you d o not see the information that you expected, contact Release of Information in [facility] [email or web address] Information Management department at [phone] for further assistan ce in locating additional records.[facility] Allergies Comments Active Allergy Reactions Severity Noted Date Codeine RASH Medium 11/15/2015 Penicillins RASH Medium 11/15/2015 Medications End Date Status Medication Sig Dispensed Refills Start Date Active atorvastatin (LIPITOR) 10 Take 10 mg by 0 mg tablet mouth daily. Active lisinopril (PRINIVIL; Take 10 mg by 0 ZESTRIL) 10 mg tablet mouth daily. Active naproxen (NAPROSYN) 500 Take 500 mg 0 mg tablet by mouth twice daily with meals. Active levothyroxine (SYNTHROID) Take 100 mcg 0 100 mcg tablet by mouth daily. Active omeprazole DR(+) Take 40 mg by 0 (PRILOSEC) 40 mg capsule mouth daily. Active diphenhydrAMINE Take 25 mg by 0 (BENADRYL) 25 mg capsule mouth every 6 hours as needed. 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) Cancer (HCC) High cholesterol Hypertension Hypothyroid Seasonal allergic reaction Family History Medical History Relation Name Comments Heart Attack Father Diabetes Mother Heart Attack Mother Relation Name Status Comments Father Mother Social History Date Tobacco Use Types Packs/Day Years Used Former Smoker Smokeless Tobacco: Never Used Comments Alcohol Use Standard Drinks/Week No 0 (1 standard drink = 0.6 o z pure alcohol) Sex Assigned at Date Recorded Not on file Last Filed Vital Signs Reading Time Taken Comments Vital Sign 118/73 11/15/2015 9:00 AM CDT Blood Pressure 102 11/15/2015 9:00 AM CDT Pulse - - Temperature - - Respiratory Rate - - Oxygen Saturation - - Inhaled Oxygen Concentration 84.6 kg (186 lb 9.6 oz) 11/15/2015 9:00 AM CDT Weight 165.1 cm (5' 5") 11/15/2015 9:00 AM CDT Height 31.05 11/15/2015 9:00 AM CDT Body Mass Index Plan of Treatment Health Maintenance Due Date Last Done Comments MEDICARE ANNUAL WELLNESS 1950 VISIT DTAP/TDAP VACCINES (1 - 1968 Tdap) HEPATITIS C SCREENING 1968 PHYSICAL (COMPREHENSIVE) 1968 EXAM BREAST CANCER SCREENING 1990 COLORECTAL CANCER 2000 SCREENING SHINGLES RECOMBINANT 2000 VACCINE (1 of 2) OSTEOPOROSIS 2015 SCREENING/MONITORING PNEUMONIA (PPSV23) 2015 VACCINE (1 of 1 - PPSV23) INFLUENZA VACCINE 03/26/2021 Results Not on filefrom Last 3 Months Insurance Type Payer Benefit Subscriber ID Effective Phone Address Plan / Dates Group Medicare MEDICARE MEDICARE [id number] 2011-P [phone] [address] [place] [address] [place] [id number] 2015- [phone] [address] x MEDICAID Present [id number] [place] [id number] Advance Directives Patient Track Oiler Explanation Type Date Recorded Advance 11/09/2015 11:22 AM Directive/DPOA Care Teams Start Date End Date Dietary Director Relationship Specialty 11/09/15 Juanis Bhakta MD Otolaryngolo [address] [facility] [address] [place] [id number] 11/15/15 Outpatient, Radiologist
--- NOTE | 2021-08-22 16:54 | ED Fall/Injury ---
General Chief Complaint: Trauma-Non Activation Stated Complaint: FALL,HIT HEAD,NOSE LAC,RT HAND SWELLING Nursing Triage Note: PT AMBULATE TO ROOM FS06 WITHOUT DIFFICULTY WITH C/O FALL TODAY. PT REPORTS FALLING AND NOW C/O RIGHT HAND PAIN/SWELLING, LAC TO NOSE, AND HEAD PAIN. PT DENIES LOC, N/V. Source: patient History of Present Illness Date Seen by Provider: Aug 22, 2021 Time Seen by Provider: 16:26 Initial Comments 71-year-old female presenting with with facial contusion and laceration to her nose. She has bruising and swelling to her right hand as well. She had accompanied her grandson to a doctor's appointment this afternoon and as they were walking back out to the car she had a wind yuri catch the diaper bag and caused her to drop it. Then she got her feet tangled up in that and fell. She stretched her hands out to try and catch herself and caused bruising and swelling to her right hand. She hit her face and had a laceration and abrasion to her nose as well as a hematoma to her right forehead. She had not really noticed her hand swelling until they got home. Her grandson who she lives with felt that the swelling and bruising on her face and hand was getting a lot worse so he rushed her back to the emergency department. Patient denies any change in her vision, nausea, vomiting, headache, drainage from her nose or ears. Location Injury Occurred: Parking lot for [facility] Occurred: this afternoon Severity: mild Injuries/Pain Location: face (Her nose and above the right eye), upper extremity (right hand) Context: tripped Loss of Consciousness: no loss of consciousness Associated Symptoms (Fall): No Abdominal Pain, No Chest Pain, No Confusion, No Dizziness, No Headache, No Lightheadedness, No Muscle Spasms, No Nausea/Vomiting, No Neck Pain, No Ringing in Ears, No Seizures, No Shortness of Air, No Slurred Speech, No Trouble Walking, No Vision Changes Allergies and Home Medications Allergies Coded Allergies: Penicillins (Verified Allergy, Unknown, 11/24/18) codeine (Verified Allergy, Unknown, 11/24/18) lidocaine (Verified Allergy, Unknown, 11/24/18) oxytetracycline (Verified Allergy, Unknown, 11/24/18) Patient Home Medication List Home Medication List Reviewed: Yes Ascorbate Calcium (Vitamin C) 500 Mg Tablet, 500 MG PO DAILY, (Reported) Entered as Reported by: ALHAJI SAMUEL on 09/16/19 0946 Cholecalciferol (Vitamin D3) (Vitamin D3) 2,000 Unit Tablet, 2,000 UNIT PO DAILY, (Reported) Entered as Reported by: ALHAJI SAMUEL on 09/16/19 0946 Clindamycin HCl (Clindamycin HCl) 150 Mg Capsule, 300 MG PO Q8HR Prescribed by: BOB BENEDICT on 09/19/19 1014 Diphenhydramine HCl (Benadryl) 25 Mg Capsule, 50 MG PO DAILY, (Reported) Entered as Reported by: ALHAJI SAMUEL on 09/16/19 0946 Ferrous Sulfate (Ferrous Sulfate) 325 Mg Tablet, 325 MG PO TIDWM Prescribed by: BOB BENEDICT on 09/19/19 1014 Levothyroxine Sodium (Levothyroxine Sodium) 100 Mcg Tablet, 100 MCG PO DAILY, (Reported) Entered as Reported by: ALHAJI SAMUEL on 09/16/19 0950 Review of Systems Review of Systems Constitutional: No chills, No dizziness, No fever Eyes: Denies Blindness, Denies Blurred Vision, Denies Drainage, Denies Foreign Body Sensation, Denies Pain, Denies Photophobia, Denies Tunnel Vision, Denies Vision Changes Ears, Nose, Mouth, Throat: denies ear pain, denies ear discharge, denies nose pain, denies nose discharge; epistaxis Respiratory: no symptoms reported Cardiovascular: no symptoms reported Gastrointestinal: No nausea, No vomiting Genitourinary: no symptoms reported Musculoskeletal: other (swelling and bruising with stiffness to right hand) Skin: change in color (bruise to right hand, laceration and abrasion to nose, abrasion and hematoma to right forehead above eyebrow) Psychiatric/Neurological: Denies Anxiety, Denies Headache, Denies Seizure, Denies Weakness Past Poovtgf-Ucobqo-Alzlzl Hx Patient Social History Tobacco Use?: No Smoking Status: Never a Smoker Smokeless Tobacco Frequency: Never a User Use of E-Cig and/or Vaping dev: No Use of E-Cig and/or Vaping Trent: Never a User Substance use?: No Alcohol Use?: No Pt feels they are or have been: No Seasonal Allergies Seasonal Allergies: Yes Past Medical History Surgeries: Yes (VEIN STRIPPING, FEEDING TUBE PLACEMENT) Abdominal, Tubal Ligation Respiratory: No Cardiac: No Neurological: No 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 No Pertinent Family Hx Physical Exam Vital Signs Vital Signs - First Documented 08/22/21 16:25 Temp 36.5 Pulse 100 Resp 20 B/P (MAP) 151/106 (121) O2 Delivery Room Air Capillary Refill : Less Than 3 Seconds Height, Weight, BMI Height: 5'5.00" Weight: 113lbs. 0.0oz. [id number]; 15.00 BMI Method:Stated General Appearance: WD/WN, no apparent distress HEENT: PERRL/EOMI, TMs normal, pharynx normal; No photophobia; other (hematoma to right forehead above eyebrow. Negative stapleton sign, negative raccoon sign, no CSF otorrhea or rhinorrhea, no active epistaxis. She has been some swelling to the nose where she has the abrasion and laceration that is approximated using Steri-Strips. 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 This helped to stabilize the displaced fracture of the fifth metacarpal. Will have the patient follow-up through orthopedics and once the swelling has gone down hopefully the fracture pieces will be in better alignment. If not she may require a pin. Have her follow-up within a week to be seen with orthopedics and recheck. Encouraged her to rest and elevate her hand as high as possible. May still apply ice even with the splint. Arm Sling: [place] Progress/Results/Core Measures Results/Orders My Orders Orders - LUL DODD MD Ice: Apply To Affected Area (08/22/21 16:47) Hand 3 View Right (08/22/21 16:47) Ct Head/Maxillofacial Wo (08/22/21 16:47) Ed Ortho/Other Supplies Order (08/22/21 17:49) Ortho Glass (08/22/21 17:49) Orthopedic Equiment (08/22/21 17:49) Vital Signs/I&O 08/22/21 16:25 Temp 36.5 Pulse 100 Resp 20 B/P (MAP) 151/106 (121) O2 Delivery Room Air Blood Pressure Mean: 121 Progress Progress Note #1: Progress Note Obtain CT scan of the head and face to evaluate for fractures or intracranial hemorrhage. X-rays of the right hand to evaluate for fracture or acute bony injury. Ice to help with the swelling and bruising to the right hand. Patient states she is up-to-date on her tetanus shot and she is not having any pain currently. Progress Note #2: Progress Note CT of the head and face did not show any acute intracranial hemorrhage or process. She did have a small nondisplaced nasal bone fractures. The right hand has displaced spiral shaft fracture of the fifth metacarpal. Will place an ulnar gutter splint and counseled on follow-up and return precautions. Advised to be seen within the week for reevaluation with orthopedics of her hand. For the nose advised to keep her head elevated 30 to 45 degrees to help limit s welling and bruising. Use ice to help with bruising and pain. Diagnostic Imaging Diagonstic Imaging: CT Plain Films/CT/US/NM/MRI: facial bones, head Comments [facility] [place], [place] NAME: ZAIRE KIRK [facility] REC#: [id number] PT STATUS: REG ER : 1950 PHYSICIAN: LUL DODD MD ADMIT DATE: 08/22/21/ER FS Signed Date of Exam:08/22/21 CT HEAD/MAXILLOFACIAL WO PROCEDURE: CT head and maxillofacial without contrast. TECHNIQUE: Multiple contiguous axial images were obtained through the head and facial bones without the use of intravenous contrast. Auto Exposure Controls were utilized during the CT exam to meet ALARA standards for radiation dose reduction. INDICATION: Fall with head and facial injury. Patient has swelling and abrasions to the bridge of the nose and right side of the forehead. CORRELATION is made with prior head CT from 09/16/2019. CT HEAD: There is soft tissue swelling in the right frontal scalp. Ventricles and sulci are within normal limits. No sulcal effacement is identified. There is no midline shift. No acute intra-axial or extra-axial hemorrhage is detected. Cisterns are patent. Visualized paranasal sinuses are clear. IMPRESSION: 1. Right frontal scalp swelling. No acute intracranial process is detected. CT MAXILLOFACIAL: Mandible appears intact. The zygomatic arches are intact. The maxillary sinus hdez are intact. There is a minimally medially displaced fracture of the right nasal bone. There is overlying soft tissue swelling as well as soft tissue gas. There appears to be a fracture of the left nasal bone as well showing some slight lateral displacement. Nasal septum is intact. Medial and lateral orbital hdez appear to be intact. Both globes are unremarkable. Soft tissue swelling in the right frontal scalp and over the nose. IMPRESSION: 1. Minimally displaced bilateral nasal bone fractures with overlying soft tissue swelling and soft tissue gas. There is also right frontal scalp swelling. No other facial bone fractures are seen. Dictated by: Dictated on workstation # [id number] Dict: 08/22/211729 Trans: 08/22/211739 [facility] [id number] Interpreted by: KATIE GAN MD Electronically signed by: KATIE GAN MD 08/22/211739 Reviewed: Reviewed by Me Diagonstic Imaging: Xray Plain Films/CT/US/NM/MRI: hand Comments [facility] [place] [place] NAME: ZAIRE KIRK [facility] REC#: [id number] PT STATUS: REG ER : 1950 PHYSICIAN: LUL DODD MD ADMIT DATE: 08/22/21/ER FS Signed Date of Exam:08/22/21 HAND 3 VIEW RIGHT INDICATION: Fall with right hand pain. TIME OF EXAM: 5:23 p.m. FINDINGS: Three views of the right hand were obtained. There is an obliquely oriented fracture of the mid shaft of the fifth metacarpal. No significant displacement or angulation is seen. Remaining metacarpals are intact. Phalanges are intact. Carpus is unremarkable. IMPRESSION: Obliquely oriented fifth metacarpal fracture. Dictated by: Dictated on workstation # [id number] Dict: 08/22/21 1733 Trans: 08/22/21 1740 [id number] Interpreted by: KATIE GAN MD Electronically signed by: KATIE GAN MD 08/22/211739 Reviewed: Reviewed by Me Departure Impression Primary Impression: Closed displaced fracture of shaft of fifth metacarpal bone of right hand Qualified Codes: S62.326A - Displaced fracture of shaft of fifth metacarpal bone, right hand, initial encounter for closed fracture Additional Impressions: Contusion of right hand, initial encounter Traumatic hematoma of right hand Qualified Codes: S60.221A - Contusion of right hand, initial encounter Facial contusion Qualified Codes: S00.83XA - Contusion of other part of head, initial encounter Laceration without foreign body of nose, initial encounter Traumatic hematoma of forehead Qualified Codes: S00.83XA - Contusion of other part of head, initial e ncounter Fall from standing Qualified Codes: W19.XXXA - Unspecified fall, initial encounter Nasal bones, closed fracture Qualified Codes: S02.2XXA - Fracture of nasal bones, initial encounter for closed fracture Disposition: 01 HOME, SELF-CARE Condition: Stable Departure-Patient Inst. Decision time for Depature: 17:45 Referrals: JOSE AQUINO ANNA K APRN (PCP) Primary Care Physician KRUPA TEMPLE MD Patient Instructions: Preventing Falls ED, Nose Fracture ED, Splint Care ED, Minor Head Injury, Adult ED, Hand Fracture ED Add. Discharge Instructions: Keep splint on hand clean and dry. Try to elevate your hand above heart level as much as possible to help with bruising and swelling. Call Dr. Temple in [place] or his Nurse Practitioner Luis Aquino here in [place] about follow up for your hand fracture. They should see you within the next week to evaluate your hand and change you over to a cast and you may need surgery to pin the bone together. The nasal bone injury did involve a non-displaced fracture and should heal well on its own. Use ice 10-15 minutes every few hours as you tolerate it to help with swelling, bruising and bleeding for the nose. Sleep with your head elevated 30-45 degrees for the next 2-3 nights. This will help limit the swelling bleeding to your face and injuries. Check back with the clinic for continued concerns. All discharge instructions reviewed with patient and/or family. Voiced understanding. LUL DODD MD Aug 22, 2021 16:54
--- NOTE | 2021-08-22 17:37 | Diagnostic Imaging Report ---
PROCEDURE: CT head and maxillofacial without contrast. TECHNIQUE: Multiple contiguous axial images were obtained through the head and facial bones without the use of intravenous contrast. Auto Exposure Controls were utilized during the CT exam to meet ALARA standards for radiation dose reduction. INDICATION: Fall with head and facial injury. Patient has swelling and abrasions to the bridge of the nose and right side of the forehead. CORRELATION is made with prior head CT from 09/16/2019. CT HEAD: There is soft tissue swelling in the right frontal scalp. Ventricles and sulci are within normal limits. No sulcal effacement is identified. There is no midline shift. No acute intra-axial or extra-axial hemorrhage is detected. Cisterns are patent. Visualized paranasal sinuses are clear. IMPRESSION: 1. Right frontal scalp swelling. No acute intracranial process is detected. CT MAXILLOFACIAL: Mandible appears intact. The zygomatic arches are intact. The maxillary sinus hdez are intact. There is a minimally medially displaced fracture of the right nasal bone. There is overlying soft tissue swelling as well as soft tissue gas. There appears to be a fracture of the left nasal bone as well showing some slight lateral displacement. Nasal septum is intact. Medial and lateral orbital hdez appear to be intact. Both globes are unremarkable. Soft tissue swelling in the right frontal scalp and over the nose. IMPRESSION: 1. Minimally displaced bilateral nasal bone fractures with overlying soft tissue swelling and soft tissue gas. There is also right frontal scalp swelling. No other facial bone fractures are seen. Dictated by: Dictated on workstation # [id number]
--- NOTE | 2021-08-22 17:38 | Diagnostic Imaging Report ---
INDICATION: Fall with right hand pain. TIME OF EXAM: 5:23 p.m. FINDINGS: Three views of the right hand were obtained. There is an obliquely oriented fracture of the mid shaft of the fifth metacarpal. No significant displacement or angulation is seen. Remaining metacarpals are intact. Phalanges are intact. Carpus is unremarkable. IMPRESSION: Obliquely oriented fifth metacarpal fracture. Dictated by: Dictated on workstation # [id number]
[2021-08-22 18:23] VITALS: BP 136/77
== END 2021-08-22 18:23 | disposition home or self-care (01) ==
LOC: EDUNIT# 16:23 → ER FS 16:25
DX: S62.326A Displaced fracture of shaft of fifth metacarpal bone, right hand, initial encounter for closed fracture (principal); S02.2XXA Fracture of nasal bones, initial encounter for closed fracture; S60.221A Contusion of right hand, initial encounter; S00.83XA Contusion of other part of head, initial encounter; E03.9 Hypothyroidism, unspecified; Z79.890 Hormone replacement therapy; W18.30XA Fall on same level, unspecified, initial encounter; Y92.481 Parking lot as the place of occurrence of the external cause
CPT/HCPCS: 70450; 70486; 73130; 99281

== ENCOUNTER → 2021-09-05 | Outpatient (CLI) | payer MEDICARE, MEDICAID ==
--- NOTE | 2021-09-05 13:13 | Diagnostic Imaging Report ---
HISTORY: Pain in the right wrist. COMPARISON: Hand radiographs from 08/22/2021. TECHNIQUE: Three views of the right wrist. FINDINGS: Redemonstrated is an oblique displaced fracture of the right 5th metacarpal shaft. There are moderate to severe degenerative changes at the base of the thumb and the triscaphe joint as well as the radiocarpal joint. There are advanced degenerative changes at the distal radioulnar joint. No other fractures are seen. IMPRESSION: 1. Advanced degenerative changes in the right wrist. 2. Displaced 5th metacarpal shaft fracture. Dictated by: Dictated on workstation # [id number]
--- NOTE | 2021-09-05 13:14 | Diagnostic Imaging Report ---
HISTORY: Followup fracture of the 5th metacarpal. TECHNIQUE: Three views of the right hand. COMPARISON: 08/22/2021. FINDINGS: There is a moderately laterally displaced oblique fracture of the right 5th metacarpal shaft with mild overriding. There is no significant bony callus formation or bony bridging appreciated. There is diffuse osteopenia. There are advanced degenerative changes in the carpus and scattered elsewhere in the right hand, most severe in the 5th distal interphalangeal joint. Alignment otherwise appears normal and no new fractures are seen. IMPRESSION: 1. Redemonstrated displaced oblique right 5th metacarpal shaft fracture. Alignment is unchanged. There is no significant bony callus or bridging formation. 2. Scattered degenerative changes, most severe in the 5th finger distal interphalangeal joint. Dictated by: Dictated on workstation # [id number]
== END ==
LOC: RAD FS 09:19
PROVIDERS: ATTEND Nurse Practitioner
DX: S62.306D Unspecified fracture of fifth metacarpal bone, right hand, subsequent encounter for fracture with routine healing (principal); M19.031 Primary osteoarthritis, right wrist; X58.XXXD Exposure to other specified factors, subsequent encounter
CPT/HCPCS: 73110; 73130

== ENCOUNTER → 2021-10-09 | Outpatient (CLI) | payer MEDICARE, MEDICAID ==
--- NOTE | 2021-10-09 13:01 | Diagnostic Imaging Report ---
INDICATION: Postop follow-up of the 5th metacarpal fracture. FINDINGS: Good alignment of the oblique mid shaft fracture is demonstrated. There are now two bone screws transfixing the fracture. 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 IMPRESSION: Satisfactory appearing fixation of the 5th metacarpal shaft fracture. Dictated by: Dictated on workstation # [id number]
== END ==
LOC: RAD FS 09:50
PROVIDERS: ATTEND Nurse Practitioner
DX: S62.326D Displaced fracture of shaft of fifth metacarpal bone, right hand, subsequent encounter for fracture with routine healing (principal); X58.XXXD Exposure to other specified factors, subsequent encounter
CPT/HCPCS: 73130

== ENCOUNTER → 2021-10-30 | Outpatient (CLI) | payer MEDICARE, MEDICAID ==
--- NOTE | 2021-10-30 09:36 | Diagnostic Imaging Report ---
INDICATION: Fracture. COMPARISON: 10/09/2021. FINDINGS: Pins transfix the obliquely oriented shaft fracture of the 5th metacarpal. The fracture line remains visualized but is more blurred and indistinct, consistent with at least partial healing. Fragmental diastasis has also improved. No adverse development. No new injury. IMPRESSION: Partial healing of the 5th metacarpal fracture with no adverse development. No new injury is identified. Dictated by: Dictated on workstation # [id number]
== END ==
LOC: RAD FS 08:53
PROVIDERS: ATTEND Nurse Practitioner
DX: S62.326D Displaced fracture of shaft of fifth metacarpal bone, right hand, subsequent encounter for fracture with routine healing (principal); X58.XXXD Exposure to other specified factors, subsequent encounter
CPT/HCPCS: 73130

== ENCOUNTER → 2022-10-16 | Outpatient (CLI) | payer MEDICARE, MEDICAID ==
[~2022-10-16] MED LIST changes: +LEVO750T PO; -LEVO750T39 PO
--- NOTE | 2022-10-16 16:51 | Diagnostic Imaging Report ---
INDICATION: Neck pain. COMPARISON: None available. TECHNIQUE: Four radiographs of the cervical spine dated 10/16/2022. FINDINGS: Alignment of the cervical spine is well maintained. Vertebral body heights are well maintained. Mild multilevel disc space height loss without severe disc space height loss within the cervical spine. Scattered facet joint degenerative changes, greatest within the upper to mid cervical spine. The lateral masses are well seated. The dens is predominantly obscured by overlying osseous structures. The patient is edentulous. Prevertebral soft tissues are unremarkable. IMPRESSION: No acute osseous abnormality with [id number] degenerative changes present. Dictated by: Dictated on workstation # [id number]
== END ==
LOC: RAD FS 10:35
PROVIDERS: ATTEND Nurse Practitioner Family
DX: M47.812 Spondylosis without myelopathy or radiculopathy, cervical region (principal); M50.30 Other cervical disc degeneration, unspecified cervical region
CPT/HCPCS: 72040

== ENCOUNTER 2022-12-29 11:07 | Emergency (ER) | payer MEDICARE, MEDICAID ==
[2022-12-29 11:20] VITALS: BP_SYST 134; BP_SYST 153; BP_SYST 93; BP_DIAS 61; BP_DIAS 73; BP_DIAS 84
[2022-12-29] MEDS ORDERED: NS IV 500 ML 500 ML IV SCH (11:30)
[2022-12-29 11:35] LABS: BASOPHILS % (AUTO) 0 % (0-10); EOSINOPHILS % (AUTO) 1 % (0-10); HEMATOCRIT 37 % (35-52); HEMOGLOBIN 12.3 g/dL (11.5-16.0); LYMPHOCYTES # (AUTO) 0.9 10^3/uL (1.0-4.0); LYMPHOCYTES % (AUTO) 14 % (12-44); MEAN CORPUSCULAR HEMOGLOBIN 29 pg (25-34); MEAN CORPUSCULAR HGB CONC 33 g/dL (32-36); MEAN CORPUSCULAR VOLUME 88 fL (80-99); MEAN PLATELET VOLUME 11.2 fL (9.0-12.2); MONOCYTES # (AUTO) 0.6 10^3/uL (0.0-1.0); MONOCYTES % (AUTO) 9 % (0-12); NEUTROPHILS # (AUTO) 4.7 10^3/uL (1.8-7.8); NEUTROPHILS % (AUTO) 76 % (42-75); PLATELET COUNT 193 10^3/uL (130-400); WHITE BLOOD COUNT 6.2 10^3/uL (4.3-11.0)
[2022-12-29] MEDS ORDERED: TETANUS,DIPTH,PERTUSS P/F (BOOSTRIX) 0.5 ML VIAL IM ONE (11:45)
--- NOTE | 2022-12-29 11:50 | ED Syncope ---
General Chief Complaint: Dizziness/Syncope Stated Complaint: LOW BP; SYNCOPAL EPISODE Nursing Triage Note: PT REPORTS SHE WAS LAYING DOWN AT HOME AND SHE GOT UP AND STARTED WALKING AND SHE FELT DIZZY AND FELL. C/O LEFT SHOULDER PAIN AND HAS A SMALL ABRASION TO THE LEFT EYEBROW. Source of Information: Patient Exam Limitations: No Limitations History of Present Illness Date Seen by Provider: December 29, 2022 Time Seen by Provider: 11:13 Initial Comments 72-year-old female patient with history of hypertension and hypothyroidism stated she had a usual day this morning and ate her breakfast. Patient stated she got up from a couch and walked to the kitchen and felt pain in left side of neck like her usual tension pain of her neck and then had black vision and passed out. Patient's grandson was at home and told her that she had a syncope for a short time. Patient complaining of pain in left shoulder and stated she landed on left shoulder. Patient also had small abrasion of left eyebrow at the area of her eyeglasses. Patient denied chest pain and palpitation and focal n eurodeficit before or after her syncope. Patient states that she has had episodes of dizziness for the last 2 weeks and the nurse told her that her blood pressure was low and needed to follow-up with her primary care physician regarding managing her blood pressure medication but her primary care physician is not in business anymore and she is waiting for appointment with a new pro vider. Patient denies recent dehydration, nausea and vomiting, diarrhea and constipation, fever and chills, headache, chest pain and palpitation. Patient states she had another episode of syncope several years ago that resulted in fractured leg. Patient does not remember her last tetanus immunization. Allergies and Home Medications Allergies Coded Allergies: Penicillins (Verified Allergy, Unknown, 11/24/18) codeine (Verified Allergy, Unknown, 11/24/18) lidocaine (Verified Allergy, Unknown, 11/24/18) oxytetracycline (Verified Allergy, Unknown, 11/24/18) Patient Home Medication List Home Medication List Reviewed: Yes Ascorbate Calcium (Vitamin C) 500 Mg Tablet, 500 MG PO DAILY, (Reported) Entered as Reported by: ALHAJI SAUMEL on 09/16/19 0946 Cholecalciferol (Vitamin D3) (Vitamin D3) 2,000 Unit Tablet, 2,000 UNIT PO DAILY, (Reported) Entered as Reported by: ALHAJI SAMUEL on 09/16/19 0946 Clindamycin HCl (Clindamycin HCl) 150 Mg Capsule, 300 MG PO Q8HR Prescribed by: BOB BENEDICT on 09/19/19 1014 Diphenhydramine HCl (Benadryl) 25 Mg Capsule, 50 MG PO DAILY, (Reported) Entered as Reported by: ALHAJI SAMUEL on 09/16/19 0946 Ferrous Sulfate (Ferrous Sulfate) 325 Mg Tablet, 325 MG PO TIDWM Prescribed by: BOB BENEDICT on 09/19/19 1014 Levothyroxine Sodium (Levothyroxine Sodium) 100 Mcg Tablet, 100 MCG PO DAILY, (Reported) Entered as Reported by: ALHAJI SAMUEL on 09/16/19 0950 Review of Systems Constitutional: see HPI EENTM: no symptoms reported Respiratory: no symptoms reported Cardiovascular: see HPI Gastrointestinal: no symptoms reported Genitourinary: no symptoms reported Musculoskeletal: see HPI Skin: see HPI Psychiatric/Neurological: No Symptoms Reported All Other Systems Reviewed Negative Unless Noted: Yes Past Nkllzwg-Vxckml-Wzupiw Hx Patient Social History Tobacco Use?: Yes Tobacco type used: Cigarettes Smoking Status: Former Smoker Use of E-Cig and/or Vaping dev: No Substance use?: No Alcohol Use?: No Pt feels they are or have been: No Seasonal Allergies Seasonal Allergies: Yes Past Medical History Surgeries: Yes (VEIN STRIPPING, FEEDING TUBE PLACEMENT) Abdominal, Tubal Ligation Respiratory: No Cardiac: No Neurological: No Reproductive Disorders: 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 No Pertinent Family Hx Physical Exam Vital Signs Vital Signs - First Documented 12/29/22 12/29/22 11:12 13:42 Temp 36.4 Pulse 100 Resp 16 B/P (MAP) 152/99 (116) Pulse Ox 94 O2 Delivery Room Air Capillary Refill : Less Than 3 Seconds Height, Weight, BMI Height: 5'5.00" Weight: 113lbs. 0.0oz. [id number]; 15.00 BMI Method:Stated General Appearance: No Apparent Distress, WD/WN, Thin HEENT: PERRL/EOMI, TMs Normal, Normal ENT Inspection, Pharynx Normal, Moist Mucous Membranes, Other (Superficial 1 cm abrasion in lateral side of left orbit without bleeding) Neck: Full Range of Motion, Normal Inspection, Non Tender, Supple Cardiovascular: Regular Rate, Rhythm, No Edema, No Gallop, No JVD, No Murmur, Normal Peripheral Pulses Respiratory: Chest Non Tender, Lungs Clear, Normal Breath Sounds, No Accessory Muscle Use, No Respiratory Distress Gastrointestinal: Normal Bowel Sounds, No Organomegaly, No Pulsatile Mass, Non Tender, Soft Back: Normal Inspection, No CVA Tenderness, No Vertebral Tenderness Extremities: Normal Capillary Refill, Normal Inspection, Normal Range of Motion, Non Tender, No Calf Tenderness, No Pedal Edema Neurologic/Psychiatric: Alert, Oriented x3, No Motor/Sensory Deficits, Normal Mood/Affect Cranial Nerves: Normal Hearing, Normal Speech, PERRL Coordination/Gait: Normal Finger to Nose, Normal Gait, Negative Romberg's Sign Motor/Sensory: No Motor Deficit, No Sensory Deficit, No Pronator Drift Reflexes: 3+ Bicep (R), 3+ Bicep (L), 3+ Tricep (R), 3+ Tricep (L), 3+ Knee (R), 3+ Knee (L), 3+ Ankle (R), 3+ Ankle (L) Skin: Normal Color, Warm/Dry, Cool Lymphatic: No Adenopathy Progress/Results/Core Measures Results/Orders Lab Results Laboratory Tests Test 12/29/22 11:31 12/29/22 11:40 12/29/22 13:00 Range/Units White Blood Count 6.2 4.3-11.0 10^3/uL Red Blood Count 4.20 3.80-5.11 10^6/uL Hemoglobin 12.3 11.5-16.0 g/dL Hematocrit 37 35-52 % Mean Corpuscular Volume 88 80-99 fL Mean Corpuscular Hemoglobin 29 25-34 pg Mean Corpuscular Hemoglobin Concent 33 32-36 g/dL Red Cell Distribution Width 12.8 10.0-14.5 % Platelet Count 193 130-400 10^3/uL Mean Platelet Volume 11.2 9.0-12.2 fL Immature Granulocyte % (Auto) 0 % Neutrophils (%) (Auto) 76 H 42-75 % Lymphocytes (%) (Auto) 14 12-44 % Monocytes (%) (Auto) 9 0-12 % Eosinophils (%) (Auto) 1 0-10 % Basophils (%) (Auto) 0 0-10 % Neutrophils # (Auto) 4.7 1.8-7.8 10^3/uL Lymphocytes # (Auto) 0.9 L 1.0-4.0 10^3/uL Monocytes # (Auto) 0.6 0.0-1.0 10^3/uL Eosinophils # (Auto) 0.0 0.0-0.3 10^3/uL Basophils # (Auto) 0.0 0.0-0.1 10^3/uL Immature Granulocyte # (Auto) 0.0 0.0-0.1 10^3/uL Sodium Level 140 135-145 MMOL/L Potassium Level 4.1 3.6-5.0 MMOL/L Chloride Level 101 98-107 MMOL/L Carbon Dioxide Level 28 21-32 MMOL/L Anion Gap 11 5-14 MMOL/L Blood Urea Nitrogen 20 H 7-18 MG/DL Creatinine 0.77 0.60-1.30 MG/DL Estimat Glomerular Filtration Rate 82 BUN/Creatinine Ratio 26 Glucose Level 128 H 70-105 MG/DL Calcium Level 9.7 8.5-10.1 MG/DL Corrected Calcium 9.6 8.5-10.1 MG/DL Magnesium Level 2.0 1.6-2.4 MG/DL Total Bilirubin 0.4 0.1-1.0 MG/DL Aspartate Amino Transf (AST/SGOT) 18 5-34 U/L Alanine Aminotransferase (ALT/SGPT) 11 0-55 U/L Alkaline Phosphatase 89 40-136 U/L Troponin I < 0.30 < 0.30 <0.30 NG/ML Pro-B-Type Natriuretic Peptide 339.3 H <125.0 PG/ML Total Protein 7.6 6.4-8.2 GM/DL Albumin 4.1 3.2-4.5 GM/DL Urine Color YELLOW Urine Clarity CLOUDY Urine pH 6.0 5-9 Urine Specific [place] 1.025 H 1.016-1.022 Urine Protein 1+ H NEGATIVE Urine Glucose (UA) NEGATIVE NEGATIVE Urine Ketones TRACE H NEGATIVE Urine Nitrite NEGATIVE NEGATIVE Urine Bilirubin NEGATIVE NEGATIVE Urine Urobilinogen 0.2 < = 1.0 MG/DL Urine Leukocyte Esterase 1+ H NEGATIVE Urine RBC (Auto) TRACE-I H NEGATIVE Urine RBC 10-25 H /HPF Urine WBC 10-25 H /HPF Urine Squamous Epithelial Cells 25-50 H /HPF Urine Crystals NONE /LPF Urine Bacteria LARGE H /HPF Urine Casts PRESENT /LPF Urine Hyaline Casts 5-10 H /LPF Urine Coarse Granular Casts 0-2 H /LPF Urine Mucus LARGE H /LPF Urine Culture Indicated NO My Orders Orders - ISABELLA CHANDLER MD Cbc With Automated Diff (12/29/22 11:) Magnesium (12/29/22 11:) Chest 1 View Ap/Pa Only (12/29/22 11:26) Ekg Tracing (12/29/22 11:) Comprehensive Metabolic Panel (12/29/22 11:) Monitor-Rhythm Ecg Trace Only (12/29/22 11:26) Ed Iv/Invasive Line Start (12/29/22 11:26) Troponin I Fs (12/29/22 11:26) Orthostatic Vital Signs (Adult (12/29/22 11:26) Urinalysis (12/29/22 11:26) Ns Iv 500 Ml (Sodium Chloride 0.9%) (12/29/22 11:30) Probnp Fs (12/29/22 11:32) Shoulder 2 View Left (12/29/22 11:34) Dipht,Pertuss(Acell),Tet Adult (Boostrix (12/29/22 11:45) Ct Head/Face/Cervical Wo (12/29/22 11:26) Troponin I Fs (12/29/22 13:00) Medications Given in ED Current Medications Medications Dose Ordered Sig/Paul Route Start Time Stop Time Status Last Admin Dose Admin Diphtheria/ Tetanus/Acell Pertussis 0.5 ml ONCE ONCE IM 12/29/22 11:45 12/29/22 11:46 DC 12/29/22 12:15 0.5 ML Vital Signs/I&O 12/29/22 12/29/22 12/29/22 11:12 11:20 13:42 Temp 36.4 36.4 Pulse 100 100 84 106 108 Resp 16 16 B/P (MAP) 152/99 (116) 153/84 (107) 168/80 134/73 (93) 93/61 (72) Pulse Ox 94 95 O2 Delivery Room Air Blood Pressure Mean: 72 Progress Progress Note : Progress Note Patient with syncope and injury to left side of face and left shoulder. Patient had positive orthostatic hypotension and treated with 500 mL of normal saline. EKG showed left bundle branch block without previous EKG for comparison. Left shoulder x-ray showed lateral side of left clavicle displaced fracture and shoulder sling was placed. Patient did not want to have pain medication in ER or prescription for home and advised to take Tylenol as needed for pain. Patient was advised to follow-up with Luis Miles orthopedic nurse practitioner in 2 or 3 days. Patient had BUN of 20 and mild elevation of BNP at 339. 2 sets of troponin was negative. UA was contaminated. CT head and cervical spine and facial bones was unremarkable. Patient taking 5 mg of lisinopril at night and advised to recheck her blood pressure before taking lisinopril and if the blood pressure is less than 121/80 hold on her blood medication. Patient advised to follow-up with her new primary care physician. Patient had tetanus immunization in ER. Abrasion of face did not need repair. Patient ambulated without problem. Patient and her grandson updated about test results and plan of care and needs for follow-up and all questions was addressed. Initial ECG Impression Date: December 29, 2022 Initial ECG Impression Time: 11:27 Initial ECG Rhythm: Normal Sinus Initial ECG Intervals: Normal Initial ECG Comparisson: No Previous ECG Available Comment EKG at 1127 showed normal sinus rhythm at rate of 87, TX interval of 170, QT interval of 316 and QTc of 410, left bundle branch block, no acute ST and T wave elevation. Diagnostic Imaging Diagonstic Imaging: Xray (Left showed), CT (Head and cervical spine and facial bones) Plain Films/CT/US/NM/MRI: chest Comments Left shoulder x-ray interpreted by radiologist and reviewed by me and showed: [facility] [place] [place] NAME: [facility]AI[facility] KIRK [facility] REC#: [id number] PT STATUS: REG ER : 1950 PHYSICIAN: ISABELLA CHANDLER MD ADMIT DATE: 12/29/22/ER FS Draft Date of Exam:12/29/22 SHOULDER 2 VIEW LEFT Indication: Fracture. No prior examination available for comparison. Findings: There is a comminuted fracture of the distal left clavicle just proximal to the AC joint. No other fracture or dislocation. Left lung is clear. Soft tissue unremarkable. Impression: Mildly comminuted fracture of the distal left clavicle just proximal to the AC joint. Dictated on workstation # [id number] Dict: 12/29/22 1227 Trans: 12/29/22 1234 CVB [id number] Interpreted by: LISSETTE JAY MD Electronically signed by: 1 view chest x-ray interpreted by radiologist and reviewed by me and showed: [facility] [place] [place] [facility] [id number] PT STATUS: REG ER : 1950 PHYSICIAN: ISABELLA CHANDLER MD ADMIT DATE: 12/29/22/ER FS Signed Date of Exam:12/29/22 CHEST 1 VIEW AP/PA ONLY EXAMINATION: Chest 1 view HISTORY: Syncopal episode. COMPARISON: 09/19/2019. FINDINGS: The lung volumes are hyperinflated. No focal consolidation is seen. No large pleural effusion or pneumothorax is seen. The cardiomediastinal silhouette is stable with calcified aortic atherosclerotic plaque. No acute osseous abnormality is seen. IMPRESSION: 1. Hyperinflated lung volumes. Findings likely represent COPD. Dictated by: Dictated on workstation # [id number] Dict: 12/29/22 1215 Trans: 12/29/22 1228 CVB [id number] Interpreted by: CHIQUITA CASTILLO DO Electronically signed by: CHIQUITA CASTILLO DO 12/29/[address] head and C-spine and maxillofacial bones interpreted by radiologist and reviewed by me and showed: [facility] [place] [place] [facility] REC[facility] [id number] PT STATUS: REG ER : 1950 PHYSICIAN: ISABELLA CHANDLER MD ADMIT DATE: 12/29/22/ER FS Signed Date of Exam:12/29/22 CT HEAD/FACE/CERVICAL WO PROCEDURE: CT head, face, and cervical spine without contrast. TECHNIQUE: Multiple contiguous axial images were obtained through the head, neck, and facial bones without the use of intravenous contrast. Sagittal and coronal reformations through the cervical spine and facial bones were also performed. Auto Exposure Controls were utilized during the CT exam to meet ALARA standards for radiation dose reduction. INDICATION: Dizziness. Syncopal episode. Head and neck pain. Facial bruising. COMPARISON: 08/22/2021. FINDINGS: CT head: The ventricles and cortical sulci are age-appropriate. There is no midline shift or mass-effect. No acute intracranial hemorrhage is seen. There is no CT evidence of acute territorial ischemia. No focal masses or collections are present. The calvarium is intact. CT face: No acute facial fractures are visualized. The mandible, zygomatic arches, and pterygoid plates are intact. The bilateral TMJ demonstrate normal articulation. No nasal bone fractures. The bony nasal septum is slightly deviated to the right without fracture. The paranasal sinuses and mastoid air cells are well pneumatized. The globes and orbits are symmetric and unremarkable. No evidence of orbital rim fracture. CT cervical spine: No acute fracture or dislocation is seen in the cervical spine. No focal osseous lesions. Vertebral body heights are well-maintained. The craniocervical junction is well-maintained. Soft tissues of the neck are unremarkable. Biapical scarring is noted. IMPRESSION: 1. No hemorrhage or focal intra-axial mass. No CT evidence of large acute territorial ischemia. 2. No acute fracture or dislocation in the cervical spine. 3. No acute facial fractures. Dictated by: Dictated on workstation # [id number] Dict: 12/29/22 1211 Trans: 12/29/22 1216 [facility] [id number] Interpreted by: CHIQUITA CASTILLO DO Electronically signed by: CHIQUITA CASTILLO DO 12/29/22 1216 Departure Impression Primary Impression: Syncope Additional Impressions: Dizziness Orthostatic hypotension Closed left clavicular fracture Facial abrasion Elevated brain natriuretic peptide (BNP) level Elevated AFP Tobacco abuse Disposition: 01 HOME, SELF-CARE Condition: Improved Departure-Patient Inst. Decision time for Depature: 13:37 Referrals: [facility] (PCP/Family) Primary Care Physician JSOE SIMS Follow-up with orthopedic nurse practitioner in 2 or 3 days for collarbone fracture Patient Instructions: Syncope (Fainting) (DC), Orthostatic Hypotension (DC), Clavicle Fracture, Smoking: Not Just Harmful to Your Lungs and Heart, Broken Co llarbone ED, Dizziness, Adult ED Add. Discharge Instructions: Take [id number] Tylenol or ibuprofen as needed for pain Check your blood pressure before taking your blood pressure medication and if the blood pressure is less than 120/80 do not take your blood pressure medication Use shoulder sling provided in ER and follow-up with orthopedic nurse practi lucero sims in 2 or 3 days Follow-up with your primary care physician for management of your blood pressure Do not stand up suddenly, take your time for change of the position Return to ER as needed All discharge instructions reviewed with patient and/or family. Voiced understanding. ISABELLA CHANDLER MD December 29, 2022 11:50
[2022-12-29 11:53] LABS: ALBUMIN 4.1 GM/DL (3.2-4.5); BILIRUBIN,TOTAL 0.4 MG/DL (0.1-1.0); CALCIUM 9.7 MG/DL (8.5-10.1); CREATININE SERUM 0.77 MG/DL (0.60-1.30); POTASSIUM 4.1 MMOL/L (3.6-5.0); TOTAL PROTEIN 7.6 GM/DL (6.4-8.2)
--- NOTE | 2022-12-29 12:15 | Diagnostic Imaging Report ---
PROCEDURE: CT head, face, and cervical spine without contrast. TECHNIQUE: Multiple contiguous axial images were obtained through the head, neck, and facial bones without the use of intravenous contrast. Sagittal and coronal reformations through the cervical spine and facial bones were also performed. Auto Exposure Controls were utilized during the CT exam to meet ALARA standards for radiation dose reduction. INDICATION: Dizziness. Syncopal episode. Head and neck pain. Facial bruising. COMPARISON: 08/22/2021. FINDINGS: CT head: The ventricles and cortical sulci are age-appropriate. There is no midline shift or mass-effect. No acute intracranial hemorrhage is seen. There is no CT evidence of acute territorial ischemia. No focal masses or collections are present. The calvarium is intact. CT face: No acute facial fractures are visualized. The mandible, zygomatic arches, and pterygoid plates are intact. The bilateral TMJ demonstrate normal articulation. No nasal bone fractures. The bony nasal septum is slightly deviated to the right without fracture. The paranasal sinuses and mastoid air cells are well pneumatized. The globes and orbits are symmetric and unremarkable. No evidence of orbital rim fracture. CT cervical spine: No acute fracture or dislocation is seen in the cervical spine. No focal osseous lesions. Vertebral body heights are well-maintained. The craniocervical junction is well-maintained. Soft tissues of the neck are unremarkable. Biapical scarring is noted. IMPRESSION: 1. No hemorrhage or focal intra-axial mass. No CT evidence of large acute territorial ischemia. 2. No acute fracture or dislocation in the cervical spine. 3. No acute facial fractures. Dictated by: Dictated on workstation # [id number]
--- NOTE | 2022-12-29 12:16 | Diagnostic Imaging Report ---
EXAMINATION: Chest 1 view HISTORY: Syncopal episode. COMPARISON: 09/19/2019. FINDINGS: The lung volumes are hyperinflated. No focal consolidation is seen. No large pleural effusion or pneumothorax is seen. The cardiomediastinal silhouette is stable with calcified aortic atherosclerotic plaque. No acute osseous abnormality is seen. IMPRESSION: 1. Hyperinflated lung volumes. Findings likely represent COPD. Dictated by: Dictated on workstation # [id number]
--- NOTE | 2022-12-29 12:34 | Diagnostic Imaging Report ---
Indication: Fracture. No prior examination available for comparison. Findings: There is a comminuted fracture of the distal left clavicle just proximal to the AC joint. No other fracture or dislocation. Left lung is clear. Soft tissue unremarkable. Impression: Mildly comminuted fracture of the distal left clavicle just proximal to the AC joint. Dictated by: Dictated on workstation # [id number]
[2022-12-29 12:35] LABS: BILIRUBIN,URINE NEGATIVE (NEGATIVE); COLOR,URINE YELLOW; GLUCOSE, URINE (UA) NEGATIVE (NEGATIVE); KETONES,URINE TRACE (NEGATIVE); LEUKOCYTE ESTERASE ,URINE 1+ (NEGATIVE); NITRITE,URINE NEGATIVE (NEGATIVE); PROTEIN,URINE 1+ (NEGATIVE)
[2022-12-29 12:39] LABS: BACTERIA,URINE LARGE /HPF; CLARITY,URINE CLOUDY; SQUAMOUS EPITHELIAL CELL,UR 25-50 /HPF
[2022-12-29 13:42] VITALS: BP 168/80
== END 2022-12-29 13:46 | disposition home or self-care (01) ==
LOC: EDUNIT# 11:07 → ER FS 11:08
DX: S42.032A Displaced fracture of lateral end of left clavicle, initial encounter for closed fracture (principal); S00.212A Abrasion of left eyelid and periocular area, initial encounter; I95.1 Orthostatic hypotension; I44.7 Left bundle-branch block, unspecified; R77.2 Abnormality of alphafetoprotein; R79.89 Other specified abnormal findings of blood chemistry; F17.200 Nicotine dependence, unspecified, uncomplicated; Z28.310 Unvaccinated for COVID-19; Z23 Encounter for immunization; W18.30XA Fall on same level, unspecified, initial encounter; Y93.01 Activity, walking, marching and hiking; Y92.009 Unspecified place in unspecified non-institutional (private) residence as the place of occurrence of the external cause
CPT/HCPCS: 36415; 70450; 70486; 71045; 72125; 73030; 80053; 81000; 83735; 83880; 84484; 85025; 90715; 93005; 93041

== ENCOUNTER 2023-01-27 17:43 | Emergency (ER) | payer MEDICARE, MEDICAID ==
[~2023-01-27] VITALS: Ht 165.1 cm; Wt 49.6 kg
[2023-01-27 17:45] VITALS: BP 140/60
--- NOTE | 2023-01-27 17:49 | ED GI ---
General Chief Complaint: Abdominal/GI Problems Stated Complaint: ABD PAIN History of Present Illness Date Seen by Provider: Jan 27, 2023 Time Seen by Provider: 17:49 Initial Comments 72-year-old female with PMH of tonsil carcinoma 2 years ago, is here with complaints of left lower rib pain which began earlier today. Patient states that the pain is aggravated by moving and deep inspiration. Patient had a fall a couple of weeks ago resulting in a collarbone fracture on the left side. Patient denies fever and chills, shortness of breath, chest pain, abdominal pain, nausea and vomiting, diarrhea. Allergies and Home Medications Allergies Coded Allergies: Penicillins (Verified Allergy, Unknown, 11/24/18) codeine (Verified Allergy, Unknown, 11/24/18) lidocaine (Verified Allergy, Unknown, 11/24/18) oxytetracycline (Verified Allergy, Unknown, 11/24/18) Patient Home Medication List Home Medication List Reviewed: Yes Ascorbate Calcium (Vitamin C) 500 Mg Tablet, 500 MG PO DAILY, (Reported) Entered as Reported by: ALHAJI SAMUEL on 09/16/1946 Cholecalciferol (Vitamin D3) (Vitamin D3) 2,000 Unit Tablet, 2,000 UNIT PO DAILY, (Reported) Entered as Reported by: ALHAJI SAMUEL on 09/16/19 0946 Clindamycin HCl (Clindamycin HCl) 150 Mg Capsule, 300 MG PO Q8HR Prescribed by: BOB BENEDICT on 09/19/19 1014 Diphenhydramine HCl (Benadryl) 25 Mg Capsule, 50 MG PO DAILY, (Reported) Entered as Reported by: ALHAJI SAMUEL on 09/16/1946 Ferrous Sulfate (Ferrous Sulfate) 325 Mg Tablet, 325 MG PO TIDWM Prescribed by: BOB BENEDICT on 09/19/19 1014 Levothyroxine Sodium (Levothyroxine Sodium) 100 Mcg Tablet, 100 MCG PO DAILY, (Reported) Entered as Reported by: ALHAJI SAMUEL on 09/16/19 0950 Review of Systems Review of Systems Constitutional: no symptoms reported EENTM: No Symptoms Reported Respiratory: No Symptoms Reported Cardiovascular: No Symptoms Reported Gastrointestinal: No Symptoms Reported Genitourinary: No Symptoms Reported Musculoskeletal: see HPI, other (Rib pain) Skin: no symptoms reported Psychiatric/Neurological: No Symptoms Reported Endocrine: No Symptoms Reported Hematologic/Lymphatic: No Symptoms Reported Past Buukyxt-Buzrnp-Egdhld Hx Seasonal Allergies Seasonal Allergies: Yes Past Medical History Surgeries: Yes (VEIN STRIPPING, FEEDING TUBE PLACEMENT) Abdominal, Tubal Ligation Respiratory: No Cardiac: No Neurological: No Reproductive Disorders: No [employer]IST History: Tubal Ligation Genitourinary: No Gastrointestinal: No Musculoskeletal: No Endocrine: Yes (States hx hyperglycemia) Hypothyroidsim HEENT: No 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 No Pertinent Family Hx Physical Exam Vital Signs Vital Signs - First Documented 01/27/23 17:45 Temp 36.1 Pulse 110 Resp 16 B/P (MAP) 140/60 (86) O2 Delivery Room Air Capillary Refill : Height/Weight/BMI Height: 5'5.00" Weight: 113lbs. 0.0oz. 51.292957be; 15.00 BMI Method:Stated General Appearance: WD/WN, no apparent distress HEENT: PERRL/EOMI, normal ENT inspection, pharynx normal Neck: non-tender, full range of motion, supple, normal inspection Respiratory: lungs clear, normal breath sounds, no respiratory distress, no accessory muscle use, other (Point tenderness present over the left sided 12th rib along the anterior axillary line. No external bruising seen.) Cardiovascular: regular rate, rhythm Gastrointestinal: normal bowel sounds, non tender, soft, no organomegaly Extremities: normal range of motion Back: normal inspection, no CVA tenderness, no vertebral tenderness Neurologic/Psychiatric: alert, oriented x 3 Skin: normal color Progress/Results/Core Measures Results/Orders Lab Results Laboratory Tests Test 01/27/23 17:45 Range/Units Urine Color YELLOW Urine Clarity CLEAR Urine pH 6.0 5-9 Urine Specific [place] <=1.005 1.016-1.022 Urine Protein NEGATIVE NEGATIVE Urine Glucose (UA) NEGATIVE NEGATIVE Urine Ketones NEGATIVE NEGATIVE Urine Nitrite NEGATIVE NEGATIVE Urine Bilirubin NEGATIVE NEGATIVE Urine Urobilinogen 0.2 < = 1.0 MG/DL Urine Leukocyte Esterase TRACE H NEGATIVE Urine RBC (Auto) 1+ H NEGATIVE Urine RBC 0-2 /HPF Urine WBC 10-25 H /HPF Urine Squamous Epithelial Cells 2-5 /HPF Urine Crystals NONE /LPF Urine Bacteria TRACE /HPF Urine Casts NONE /LPF Urine Mucus NEGATIVE /LPF Urine Culture Indicated YES My Orders Orders - MURTAZA RANGEL MD Ua Culture If Indicated (01/27/23 17:49) Urine Culture (01/27/23 17:45) Ribs/Bilateral With Chest (01/27/23 18:00) Vital Signs/I&O 01/27/23 17:45 Temp 36.1 Pulse 110 Resp 16 B/P (MAP) 140/60 (86) O2 Delivery Room Air Progress Progress Note : Progress Note 1. RIB CONTUSION: - XR RIBS/ CHEST: lungs normal, see report. No acute rib fractures - Patient is taking Tylenol incorrectly, advised correct usage of Tylenol 650 mg every 4 hours as needed -Advised [id number] Lidoderm patch -Incentive spirometer given to patient from the ER and instructions on how to use it to prevent atelectasis and promote deep inspiration -Follow-up with PCP within the next 3 to 7 days. Call to make appointment. -The patient was seen in the ED, and treated appropriately to presentation at a specific point in time. Patient is informed that there is a possibility that disease and illness can evolve and change in acuity rapidly or slowly after patient is discharged from the ER. Precautionary advice given to the patient for immediate return to ER if symptoms worsen or do not resolve, and to seek emergency care sooner rather than later. Pt also advised on the importance of PCP follow up and compliance with management and follow up plan with PCP and/or specialist, as this is part of the management plan. Pt verbally expressed understanding. -Vital signs stable along with normal oxygen saturation, afebrile, patient speaking in clear concise paragraphs with no evidence of respiratory compromise. 2. UTI: - UA positive for leukocyte esterase, RBC, WBC -Prescription given for nitrofurantoin 100 mg twice daily for 7 days -Adequate water intake advised Diagnostic Imaging Diagonstic Imaging: Xray Plain Films/CT/US/NM/MRI: chest Comments [facility]. [place], [place] NAME: ZAIRE KIRK [facility] REC#: [id number] PT STATUS: REG ER : 1950 PHYSICIAN: MURTAZA RANGEL MD ADMIT DATE: 01/27/23/ER FS Signed Date of Exam:01/27/23 RIBS/BILATERAL WITH CHEST EXAMINATION: Right ribs, 3 views. Left ribs, 3 views. PA chest, single view. COMPARISON: January 21, 2019. CT chest September 16, 2019. HISTORY: 72-year-old female, fall. Rib pain. FINDINGS: Heart size and mediastinal contours are unchanged. There is no identified pneumothorax. There is no large pleural effusion. There is a contour abnormality of the right eighth rib. There is no identified left rib fracture. There is a mildly displaced fracture of the lateral third left clavicle with adjacent periosteal reaction. There are left acromioclavicular degenerative changes. There are degenerative changes of the spine. There are right acromioclavicular degenerative changes. There is no identified focal airspace consolidation. IMPRESSION: 1. Contour abnormality of the right eighth rib which is present on the prior CT chest and likely reflects a prior rib fracture. 2. No identified left rib fracture. 3. Mildly displaced fracture of the lateral third of the left clavicle which may be late acute to subacute in age. Dictated by: Dictated on workstation # [id number] Dict: 01/27/231818 Trans: 01/27/231825 [facility] [id number] Interpreted by: VITO MONDRAGON MD Electronically signed by: VITO MONDRAGON MD 01/27/231825 Departure Impression Primary Impression: Contusion of rib on left side Qualified Codes: S20.212A - Contusion of left front wall of thorax, initial encounter Additional Impression: UTI (urinary tract infection) Qualified Codes: N30.01 - Acute cystitis with hematuria Disposition: HOME, SELF-CARE Condition: Stable Departure-Patient Inst. Referrals: KEESHA ONOFRE APRN (PCP) Primary Care Physician [facility] (Family) Primary Care Physician Patient Instructions: Bruised Rib (DC), How to Use an Incentive Spirometer, Urinary Tract Infection, Adult ED Add. Discharge Instructions: Advised correct usage of Tylenol 650 mg every 4 hours as needed -Advised [id number] Lidoderm patch -Incentive spirometer given to patient from the ER and instructions on how to use it to prevent atelectasis and promote deep inspiration -Follow-up with PCP within the next 3 to 7 days. Call to make appointment. -Prescription given for nitrofurantoin 100 mg twice daily for 7 days -Adequate water intake advised All discharge instructions reviewed with patient and/or family. Voiced understanding. Scripts Nitrofurantoin Macrocrystal (Nitrofurantoin) 100 Mg Capsule 100 MG PO BID for 7 Days, #14 CAP Prov: MURTAZA RANGEL MD 01/27/23 MURTAZA RANGEL MD Jan 27, 2023 17:49
[2023-01-27 17:55] LABS: BILIRUBIN,URINE NEGATIVE (NEGATIVE); CLARITY,URINE CLEAR; COLOR,URINE YELLOW; GLUCOSE, URINE (UA) NEGATIVE (NEGATIVE); KETONES,URINE NEGATIVE (NEGATIVE); LEUKOCYTE ESTERASE ,URINE TRACE (NEGATIVE); NITRITE,URINE NEGATIVE (NEGATIVE); PROTEIN,URINE NEGATIVE (NEGATIVE)
[2023-01-27 17:59] LABS: BACTERIA,URINE TRACE /HPF; RBC,URINE 0-2 /HPF
--- NOTE | 2023-01-27 18:27 | Diagnostic Imaging Report ---
EXAMINATION: Right ribs, 3 views. Left ribs, 3 views. PA chest, single view. COMPARISON: January 21, 2019. CT chest September 16, 2019. HISTORY: 72-year-old female, fall. Rib pain. FINDINGS: Heart size and mediastinal contours are unchanged. There is no identified pneumothorax. There is no large pleural effusion. There is a contour abnormality of the right eighth rib. There is no identified left rib fracture. There is a mildly displaced fracture of the lateral third left clavicle with adjacent periosteal reaction. There are left acromioclavicular degenerative changes. There are degenerative changes of the spine. There are right acromioclavicular degenerative changes. There is no identified focal airspace consolidation. IMPRESSION: 1. Contour abnormality of the right eighth rib which is present on the prior CT chest and likely reflects a prior rib fracture. 2. No identified left rib fracture. 3. Mildly displaced fracture of the lateral third of the left clavicle which may be late acute to subacute in age. Dictated by: Dictated on workstation # [id number]
[2023-01-27] MEDS ORDERED: NITR100C PO (18:43)
== END 2023-01-27 18:51 | disposition home or self-care (01) ==
LOC: EDUNIT# 17:43 → ER FS 17:44
DX: S20.212A Contusion of left front wall of thorax, initial encounter (principal); N39.0 Urinary tract infection, site not specified; Z88.0 Allergy status to penicillin; Z28.310 Unvaccinated for COVID-19; W19.XXXA Unspecified fall, initial encounter
CPT/HCPCS: 71111; 81000; 87088